=== PATIENT | female | born 2000 | race Caucasian/White ===

== ENCOUNTER 2021-02-03 10:33 | Emergency (ER) | payer OTHER, SELFPAY ==
[2021-02-03 10:55] VITALS: BP 138/94; PULSE 96; RESP 18; TEMP 36.7; O2SAT 99; BMI 24.3
[2021-02-03 11:34] LABS: Bacteria Urine Moderate (10-30); Culture Indicated Urine Cult Not Indicated; RBC Urine 0-1/HPF (0-5/HPF); Squamous Epithelial Cell Urine 5-10 /HPF (0-5/HPF); WBC Urine 0-1/HPF (0-5/HPF)
--- NOTE | 2021-02-03 12:23 | DI.RAD.S_ITS ---
PROCEDURE: XR ACUTE ABDOMEN SERIES INDICATIONS: Shortness of breath, nausea and vomiting TECHNIQUE: One view chest and two views of the abdomen were acquired. COMPARISON: None. FINDINGS: Surgical changes and devices: None. Chest: Lungs are clear. Heart size is normal. No pleural effusions. No pneumoperitoneum. Abdomen: Bowel gas pattern is normal. No suspicious calcifications. Visualized solid organ contours appear normal. Bones: No suspicious bony lesions. IMPRESSION: A nonobstructive bowel gas pattern is seen. If clinically appropriate, please consider a repeat plain film study or a dedicated CT of the abdomen and pelvis, if the patient's symptoms persist or worsen. Clear lungs. Dictated by: Tima Marcial M.D. on 02/03/2021 at 11:40 Approved by: Tima Marcial M.D. on 02/03/2021 at 11:40
--- NOTE | 2021-02-03 12:25 | ED_ITS ---
HPI - Nausea/Vomiting/Diarrhea <ROB Doan - Last Filed: 02/03/21 16:12> General Chief complaint: Nausea/Vomiting/Diarrhea Stated complaint: Passed out, chills/shakes, Vomitting x5days Time Seen by Provider: 02/03/21 12:03 Source: patient Mode of arrival: Ambulatory Limitations: no limitations History of Present Illness HPI Narrative: The patient is a 20-year-old female who presents with her . 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 She states that every day for the past week at 4:00 p.m. she feels shaky and woozy. She states the morning she feels better, then feels worse at 4:00 p.m.. She feels nauseous at 4:00 p.m. as well. She takes ddot-ihu-xoqtvxm neck well at 4:00 p.m. to feel better. She complains of nausea, vomiting, loose stools, possibly bloody stools, appendix pain shortness of breath muscle aches chills and subjective fevers. She states that she had COVID in May, has not been vaccinated. She states she has passed out a few times, most recently last night. She denies any chest pain. She denies any cough. She has not taken anything other than NyQuil to feel better. She denies any dysuria urgency or frequency. She states she is transitioning to different control. She states that she has a primary care provider, but does not know who he is and has an appointment in a few months. Related Data Previous Rx's Medication Instructions Recorded ondansetron 4 mg disintegrating 4 mg PO Q6H PRN #20 tab 02/03/21 tablet Allergies Allergy/AdvReac Type Severity Reaction Status Date / Time No Known Drug Allergies Allergy Verified 02/03/21 15:20 Review of Systems <ROB Doan - Last Filed: 02/03/21 16:12> Review of Systems Narrative: GENERAL: See HPI HEENT: Denies sinus pain, ear pain, sore throat, difficulty swallowing, dizz iness. RESPIRATORY: See HPI CARDIOVASCULAR: See HPI GASTROINTESTINAL: She HPI : Denies dysuria, frequency, incontinence, hematuria, urinary retention. MUSCULOSKELETAL: denies weakness, joint pain, or bony pain SKIN: Denies rash, skin lesions, or other NEUROLOGIC: Denies weakness, headache, numbness, change in speech, confusion, seizures, incoordination. PSYCHIATRIC: No concerning psychosocial issues. 12 point review of systems is negative except for those stated above Patient History <Nirmala ROB Lake - Last Filed: 02/03/21 16:12> Social History Smoking Status: Never smoker Smoking Status: Never smoker Substance Use Type: does not use Exam <Nirmala ROB Lake - Last Filed: 02/03/21 16:12> Narrative Exam Narrative: GENERAL: This is a well-nourished, well-developed patient, in no acute distress with at bedside HEAD: Atraumatic. Normocephalic. No temporal or scalp tenderness. EYES: Pupils equal round and reactive. Extraocular motions intact. No scleral icterus. No injection or drainage. ENT: Nose without bleeding, purulent drainage or septal hematoma. Throat without erythema, tonsillar hypertrophy or exudate. Uvula midline. Airway patent. NECK: Trachea midline. No JVD or lymphadenopathy. Supple, nontender, no meningeal signs. CARDIOVASCULAR: Regular rate and rhythm RESPIRATORY: Clear to auscultation. Breath sounds equal bilaterally. No wheezes, rales, or rhonchi. No cough. No increased respiratory effort. No accessory muscle use. GASTROINTESTINAL: Abdomen soft, diffusely tender, nondistended. No palpable hepato-splenomegaly, or palpable masses. No guarding. Active bowel sounds all 4 quadrants. EXTREMITIES: No clubbing, cyanosis, or edema. No joint tenderness, effusion, or edema noted. BACK: Nontender without deformity or crepitance. No flank tenderness. NEURO: AOx3. SKIN: No rash or erythema on visible skin Initial Vital Signs Initial Vital Signs: Vital Signs Temperature 98.0 F 02/03/21 10:55 Pulse Rate 96 H 02/03/21 10:55 Respiratory Rate 18 02/03/21 10:55 Blood Pressure 138/94 H 02/03/21 10:55 Pulse Oximetry 99 02/03/21 10:55 <Clementina Sibley DO - Last Filed: 02/04/21 08:45> Initial Vital Signs Initial Vital Signs: Vital Signs Temperature 98.0 F 02/03/21 10:55 Pulse Rate 96 H 02/03/21 10:55 Respiratory Rate 18 02/03/21 10:55 Blood Pressure 138/94 H 02/03/21 10:55 Pulse Oximetry 99 02/03/21 10:55 Scores <ROB Doan - Last Filed: 02/03/21 16:12> GCS [place] coma scale eye opening: Spontaneous [place] coma scale verbal response: Orientated [place] coma scale motor response: Obey commands [place] coma scale total score: 15 qSOFA Altered Mental Status (GCS <15): No Respiratory rate greater than/equal to 22: No Systolic blood pressure less than or equal to 100: No qSOFA Total: 0 0-1 Not High Risk 1-3 High risk <DO Edyta Sage Last Filed: 02/04/21 08:45> GCS [place] coma scale total score: 15 qSOFA qSOFA Total: 0 Course <ROB Doan - Last Filed: 02/03/21 16:12> Orders Ordered: Discontinued Medications Ondansetron HCl (Ondansetron 4 Mg Odt) 4 mg SL NOW ONE Stop: 02/03/21 15:05 Last Admin: 02/03/21 15:23 Dose: 4 mg Documented by: NICOLE Vital Signs Vital signs: Vital Signs - 8 hr 02/03/21 10:55 02/03/21 14:40 Temperature 98.0 F Pulse Rate 96 H 94 H Respiratory Rate 18 16 Blood Pressure 138/94 H 119/76 Pulse Oximetry 99 99 <Clementina Sibley DO - Last Filed: 02/04/21 08:45> Orders Ordered: Discontinued Medications Ondansetron HCl (Ondansetron 4 Mg Odt) 4 mg SL NOW ONE Stop: 02/03/21 15:05 Last Admin: 02/03/21 15:23 Dose: 4 mg Documented by: NICOLE Vital Signs Vital signs: Vital Signs - 8 hr 02/03/21 10:55 02/03/21 14:40 Temperature 98.0 F Pulse Rate 96 H 94 H Respiratory Rate 18 16 Blood Pressure 138/94 H 119/76 Pulse Oximetry 99 99 MDM - Nausea/Vomiting/Diarrhea <ROB Doan - Last Filed: 02/03/21 16:12> Lab Data Attestation: I reviewed the patient's lab results. Result diagrams: 02/03/21 12:21 02/03/21 12:21 Labs: Lab Results 02/03/21 02/03/21 02/03/21 Range/Units 11:26 11: 12:21 WBC 7.6 (4.5-11.0) X10^3/uL RBC 4.55 (4.0-5.2) X10^6/uL Hgb 12.3 (12.0-16.0) g/dL Hct 37.1 (36-46) % MCV 81.5 (80-100) fL MCH 27.1 (26-34) PG MCHC 33.3 (30-36) % RDW 15.4 H (11.6-14.8) % Plt Count 258 (150-400) X10^3/uL Neut % (Auto) Not Reportable Lymph % (Auto) Not Reportable [place] % (Auto) Not Reportable Eos % (Auto) Not Reportable Baso % (Auto) Not Reportable Lymph # (Auto) Not Reportable [place] # (Auto) Not Reportable Baso # (Auto) Not Reportable Total Counted 100 Seg Neutrophils % 27.0 L (38-70) % Band Neutrophils % 9.0 H (3-7) % Lymphocytes % (Manual) 43.0 (25-45) % Atypical Lymphs % 14.0 H ( - 0) % Monocytes % (Manual) 3.0 (2-11) % Eosinophils % (Manual) 4.0 (2-4) % Neutrophils # (Manual) 2736 L (8571-8339) /uL Smudge Cells 1+ H RBC Morphology Normal morphology Sodium (137-145) mmol/L Potassium (3.4-5.1) mmol/L Chloride (98-107) mmol/L Carbon Dioxide (22-32) mmol/L BUN (7-17) mg/dL Creatinine (0.52-1.04) mg/dL Estimated GFR (>60) mL/min BUN/Creatinine Ratio (6-22) Glucose (70-100) mg/dL Calcium (8.4-10.2) mg/dL Total Bilirubin (0.2-1.3) mg/dL AST (14-36) IU/L ALT (<35) IU/L Alkaline Phosphatase (38-126) U/L Total Creatine Kinase (30-135) U/L CK-MB (CK-2) CK-MB (CK-2) Rel Index Troponin I (0.01-0.034) ng/mL Total Protein (6.3-8.2) g/dL Albumin (3.5-5.0) g/dL Globulin (1.7-4.1) g/dL Albumin/Globulin Ratio (1.0-2.8) Lipase (23-300) U/L Urine Color Urine Appearance Urine pH (4.5-8.0) Ur Specific [place] (1.000-1.035) Urine Protein (Negative) Urine Glucose (UA) (Negative) g/dL Urine Ketones (NEGATIVE) Urine Occult Blood (Negative) Urine Nitrate (Negative) Urine Bilirubin (NEGATIVE) Urine Urobilinogen (0.2) E.U./dL Ur Leukocyte Esterase (NEGATIVE) Urine RBC 0-1/hpf (0-5/HPF) Urine WBC 0-1/hpf (0-5/HPF) Ur Squamous Epith Cells 5-10 /hpf H (0-5/HPF) Amorphous Sediment Urine Bacteria Moderate (10-30) H (None) Ur Culture Indicated? Cult not indicated Urine Test Negative (Negative) Acetaminophen (10-30) ug/mL SARS-CoV-2 (PCR) (Negative) 02/03/21 02/03/21 02/03/21 Range/Units 12:21 12:21 12:31 WBC (4.5-11.0) X10^3/uL RBC (4.0-5.2) X10^6/uL Hgb (12.0-16.0) g/dL Hct (36-46) % MCV (80-100) fL MCH (26-34) PG MCHC (30-36) % RDW (11.6-14.8) % Plt Count (150-400) X10^3/uL Neut % (Auto) Lymph % (Auto) [place] % (Auto) Eos % (Auto) Baso % (Auto) Lymph # (Auto) [place] # (Auto) Baso # (Auto) Total Counted Seg Neutrophils % (38-70) % Band Neutrophils % (3-7) % Lymphocytes % (Manual) (25-45) % Atypical Lymphs % ( - 0) % Monocytes % (Manual) (2-11) % Eosinophils % (Manual) (2-4) % Neutrophils # (Manual) (0481-2255) /uL Smudge Cells RBC Morphology Sodium 137 (137-145) mmol/L Potassium 4.0 (3.4-5.1) mmol/L Chloride 103 (98-107) mmol/L Carbon Dioxide 25 (22-32) mmol/L BUN 8 (7-17) mg/dL Creatinine 0.81 (0.52-1.04) mg/dL Estimated GFR > 60.0 (>60) mL/min BUN/Creatinine Ratio 9.9 (6-22) Glucose 87 (70-100) mg/dL Calcium 8.9 (8.4-10.2) mg/dL Total Bilirubin 0.3 (0.2-1.3) mg/dL AST 122 H (14-36) IU/L ALT 133 H (<35) IU/L Alkaline Phosphatase 219 H (38-126) U/L Total Creatine Kinase 35 (30-135) U/L CK-MB (CK-2) TNP CK-MB (CK-2) Rel Index TNP Troponin I < 0.012 (0.01-0.034) ng/mL Total Protein 7.5 (6.3-8.2) g/dL Albumin 4.1 (3.5-5.0) g/dL Globulin 3.4 (1.7-4.1) g/dL Albumin/Globulin Ratio 1.2 (1.0-2.8) Lipase 227 (23-300) U/L Urine Color Urine Appearance Urine pH (4.5-8.0) Ur Specific [place] (1.000-1.035) Urine Protein (Negative) Urine Glucose (UA) (Negative) g/dL Urine Ketones (NEGATIVE) Urine Occult Blood (Negative) Urine Nitrate (Negative) Urine Bilirubin (NEGATIVE) Urine Urobilinogen (0.2) E.U./dL Ur Leukocyte Esterase (NEGATIVE) Urine RBC (0-5/HPF) Urine WBC (0-5/HPF) Ur Squamous Epith Cells (0-5/HPF) Amorphous Sediment Urine Bacteria (None) Ur Culture Indicated? Urine Test (Negative) Acetaminophen (10-30) ug/mL SARS-CoV-2 (PCR) Negative (Negative) 02/03/21 02/03/21 Range/Units 13:08 14:06 WBC (4.5-11.0) X10^3/uL RBC (4.0-5.2) X10^6/uL Hgb (12.0-16.0) g/dL Hct (36-46) % MCV (80-100) fL MCH (26-34) PG MCHC (30-36) % RDW (11.6-14.8) % Plt Count (150-400) X10^3/uL Neut % (Auto) Lymph % (Auto) [place] % (Auto) Eos % (Auto) Baso % (Auto) Lymph # (Auto) [place] # (Auto) Baso # (Auto) Total Counted Seg Neutrophils % (38-70) % Band Neutrophils % (3-7) % Lymphocytes % (Manual) (25-45) % Atypical Lymphs % ( - 0) % Monocytes % (Manual) (2-11) % Eosinophils % (Manual) (2-4) % Neutrophils # (Manual) (2315-8167) /uL Smudge Cells RBC Morphology Sodium (137-145) mmol/L Potassium (3.4-5.1) mmol/L Chloride (98-107) mmol/L Carbon Dioxide (22-32) mmol/L BUN (7-17) mg/dL Creatinine (0.52-1.04) mg/dL Estimated GFR (>60) mL/min BUN/Creatinine Ratio (6-22) Glucose (70-100) mg/dL Calcium (8.4-10.2) mg/dL Total Bilirubin (0.2-1.3) mg/dL AST (14-36) IU/L ALT (<35) IU/L Alkaline Phosphatase (38-126) U/L Total Creatine Kinase (30-135) U/L CK-MB (CK-2) CK-MB (CK-2) Rel Index Troponin I (0.01-0.034) ng/mL Total Protein (6.3-8.2) g/dL Albumin (3.5-5.0) g/dL Globulin (1.7-4.1) g/dL Albumin/Globulin Ratio (1.0-2.8) Lipase (23-300) U/L Urine Color Yellow Urine Appearance Clear Urine pH 6.5 (4.5-8.0) Ur Specific [place] 1.020 (1.000-1.035) Urine Protein Trace H (Negative) Urine Glucose (UA) Negative (Negative) g/dL Urine Ketones Negative (NEGATIVE) Urine Occult Blood 2+ H (Negative) Urine Nitrate Negative (Negative) Urine Bilirubin Negative (NEGATIVE) Urine Urobilinogen 0.2 (0.2) E.U./dL Ur Leukocyte Esterase Negative (NEGATIVE) Urine RBC 1-5/hpf (0-5/HPF) Urine WBC 0-1/hpf (0-5/HPF) Ur Squamous Epith Cells 0-1 /hpf (0-5/HPF) Amorphous Sediment 1+ Urine Bacteria Few (2-10) H (None) Ur Culture Indicated? Specimen cultured Urine Test (Negative) Acetaminophen < 10 L (10-30) ug/mL SARS-CoV-2 (PCR) (Negative) Point of Care Testing Test Results Negative Urine Dip Bedside Urine Glucose Negative Bedside Urine Bilirubin - Negative Bedside Urine Ketone - Negative Urine Specific [place] 1.010 Bedside Urine Occult Blood + Bedside Urine pH 6.0 Bedside Urine Protein - Negative Bedside Urine Urobilinogen - Negative Bedside Urine Nitrite - Negative Bedside Urine Leukocytes - Negative Esterase Imaging Data Abdominal x-ray: My Impression: [facility] [address] [place] [id number] XRay Report Signed Patient: Annie Jo MR#: [id number] : 2000 Acct:[id number] Age/Sex: 20 / F Date of Service: 02/03/21 Loc: ED Accession Number: [id number] ?? Procedure: XR acute abdomen series Ordering Provider: Nirmala Lake- PROCEDURE:? XR ACUTE ABDOMEN SERIES ? INDICATIONS:? Shortness of breath, nausea and vomiting ? TECHNIQUE:? One view chest and two views of the abdomen were acquired.? ? COMPARISON:? None. ? FINDINGS:? ? Surgical changes and devices:? None.? ? Chest:? Lungs are clear.? Heart size is normal.? No pleural effusions.? No pneumoperitoneum.? ? Abdomen:? Bowel gas pattern is normal.? No suspicious calcifications.? Visualized solid organ contours appear normal.? ? Bones:? No suspicious bony lesions.? ? ? IMPRESSION:? A nonobstructive bowel gas pattern is seen. ? If clinically appropriate, please consider a repeat plain film study or a dedicated CT of the abdomen and pelvis, if the patient's symptoms persist or worsen. ? ? Clear lungs.? ? ? Dictated by: Tima Marcial M.D. on 02/03/2021 at 11:40 ? ? Approved by: Tima Marcial M.D. on 02/03/2021 at 11:40 ? US - abdomen: Radiologist's Impression: [facility] [address] [place] [id number] Ultrasound Report Signed Patient: Annie Jo MR#: [id number] : 2000 Acct:[id number] Age/Sex: 20 / F Date of Service: 02/03/21 Loc: ED Accession Number: [id number] ?? Procedure: US abdomen limited Ordering Provider: Nirmala Lake PROCEDURE: US ABDOMEN LIMITED ? INDICATIONS:? ELEVATED LIVER FUNCTION TESTS ? TECHNIQUE:? Real-time focused scanning was performed of the abdomen, with image documentation.? ? COMPARISON:? [facility], CR, XR ACUTE ABDOMEN SERIES, 02/03/2021, 12:24. ? FINDINGS:? The liver is prominent in size and demonstrates no focal lesions. ? The gallbladder is partially contracted at the time of this study, as the patient is not NPO.? This mildly limits evaluation.? No findings of gallstones or sludge are seen.? The gallbladder wall is not thickened, measuring 3 mm or less.? No specific pericholecystic fluid is seen.? The sonographic Tyler sign is negative. ? There is no biliary dilatation, the common bile duct measures 2-3 mm.? ? No significant pancreatic abnormality is seen on these images.? IMPRESSION:? No acute abnormality can be seen on this study. ? Prominent liver size, yet without fatty infiltration or focal abnormality. ? The gallbladder demonstrates a normal sonographic appearance. No biliary dilatation is seen. ? ? Dictated by: Tima Marcial M.D. on 02/03/2021 at 12:48 ? ? Approved by: Tima Marcial M.D. on 02/03/2021 at 12:49 ? MDM Narrative Medical decision making narrative: The patient is a 20-year-old female who presents with multiple complaints. She states she has had nausea vomiting, passing out, feeling poorly at 4:00 p.m., shortness of breath etcetera. Acute abdomen series is no acute findings, COVID test is negative, overall CBC and CMP are well though she is noted to have elevated liver enzymes. Discussed with Dr. Sibley, ultrasound taken of right upper quadrant shows no gallstones but shows prominent liver size. Hepatitis panel is pending subsequently. However she has no evidence of cholecystitis. Urine has no clear signs of infection, she denies urinary symptoms so will hold off on antibiotics at this point. She does state that she had some bright red blood per rectum declines rectal exam and Hemoccult. Encouraged her to follow up with primary care provider in the next few days. She appears well nontoxic throughout her stay in the ER. She is noted to be giggling and on her cellphone by nursing staff test is neg ative. Patient has no questions or concerns upon discharge states understanding of return precautions as well as follow-up care. <Clementina Sibley, DO - Last Filed: 02/04/21 08:45> Lab Data Labs: Lab Results 02/03/21 02/03/21 02/03/21 Range/Units 11:26 11:26 12:21 WBC 7.6 (4.5-11.0) X10^3/uL RBC 4.55 (4.0-5.2) X10^6/uL Hgb 12.3 (12.0-16.0) g/dL Hct 37.1 (36-46) % MCV 81.5 (80-100) fL MCH 27.1 (26-34) PG MCHC 33.3 (30-36) % RDW 15.4 H (11.6-14.8) % Plt Count 258 (150-400) X10^3/uL Neut % (Auto) Not Reportable Lymph % (Auto) Not Reportable [place] % (Auto) Not Reportable Eos % (Auto) Not Reportable Baso % (Auto) Not Reportable Lymph # (Auto) Not Reportable [place] # (Auto) Not Reportable Baso # (Auto) Not Reportable Total Counted 100 Seg Neutrophils % 27.0 L (38-70) % Band Neutrophils % 9.0 H (3-7) % Lymphocytes % (Manual) 43.0 (25-45) % Atypical Lymphs % 14.0 H ( - 0) % Monocytes % (Manual) 3.0 (2-11) % Eosinophils % (Manual) 4.0 (2-4) % Neutrophils # (Manual) 2736 L (8416-6441) /uL Smudge Cells 1+ H RBC Morphology Normal morphology Sodium (137-145) mmol/L Potassium (3.4-5.1) mmol/L Chloride (98-107) mmol/L Carbon Dioxide (22-32) mmol/L BUN (7-17) mg/dL Creatinine (0.52-1.04) mg/dL Estimated GFR (>60) mL/min BUN/Creatinine Ratio (6-22) Glucose (70-100) mg/dL Calcium (8.4-10.2) mg/dL Total Bilirubin (0.2-1.3) mg/dL AST (14-36) IU/L ALT (<35) IU/L Alkaline Phosphatase (38-126) U/L Total Creatine Kinase (30-135) U/L CK-MB (CK-2) CK-MB (CK-2) Rel Index Troponin I (0.01-0.034) ng/mL Total Protein (6.3-8.2) g/dL Albumin (3.5-5.0) g/dL Globulin (1.7-4.1) g/dL Albumin/Globulin Ratio (1.0-2.8) Lipase (23-300) U/L Urine Color Urine Appearance Urine pH (4.5-8.0) Ur Specific [place] (1.000-1.035) Urine Protein (Negative) Urine Glucose (UA) (Negative) g/dL Urine Ketones (NEGATIVE) Urine Occult Blood (Negative) Urine Nitrate (Negative) Urine Bilirubin (NEGATIVE) Urine Urobilinogen (0.2) E.U./dL Ur Leukocyte Esterase (NEGATIVE) Urine RBC 0-1/hpf (0-5/HPF) Urine WBC 0-1/hpf (0-5/HPF) Ur Squamous Epith Cells 5-10 /hpf H (0-5/HPF) Amorphous Sediment Urine Bacteria Moderate (10-30) H (None) Ur Culture Indicated? Cult not indicated Urine Test Negative (Negative) Acetaminophen (10-30) ug/mL SARS-CoV-2 (PCR) (Negative) 02/03/21 02/03/21 02/03/21 Range/Units 12:21 12:21 12:31 WBC (4.5-11.0) X10^3/uL RBC (4.0-5.2) X10^6/uL Hgb (12.0-16.0) g/dL Hct (36-46) % MCV (80-100) fL MCH (26-34) PG MCHC (30-36) % RDW (11.6-14.8) % Plt Count (150-400) X10^3/uL Neut % (Auto) Lymph % (Auto) [place] % (Auto) Eos % (Auto) Baso % (Auto) Lymph # (Auto) [place] # (Auto) Baso # (Auto) Total Counted Seg Neutrophils % (38-70) % Band Neutrophils % (3-7) % Lymphocytes % (Manual) (25-45) % Atypical Lymphs % ( - 0) % Monocytes % (Manual) (2-11) % Eosinophils % (Manual) (2-4) % Neutrophils # (Manual) (5608-7405) /uL Smudge Cells RBC Morphology Sodium 137 (137-145) mmol/L Potassium 4.0 (3.4-5.1) mmol/L Chloride 103 (98-107) mmol/L Carbon Dioxide 25 (22-32) mmol/L BUN 8 (7-17) mg/dL Creatinine 0.81 (0.52-1.04) mg/dL Estimated GFR > 60.0 (>60) mL/min BUN/Creatinine Ratio 9.9 (6-22) Glucose 87 (70-100) mg/dL Calcium 8.9 (8.4-10.2) mg/dL Total Bilirubin 0.3 (0.2-1.3) mg/dL AST 122 H (14-36) IU/L ALT 133 H (<35) IU/L Alkaline Phosphatase 219 H (38-126) U/L Total Creatine Kinase 35 (30-135) U/L CK-MB (CK-2) TNP CK-MB (CK-2) Rel Index TNP Troponin I < 0.012 (0.01-0.034) ng/mL Total Protein 7.5 (6.3-8.2) g/dL Albumin 4.1 (3.5-5.0) g/dL Globulin 3.4 (1.7-4.1) g/dL Albumin/Globulin Ratio 1.2 (1.0-2.8) Lipase 227 (23-300) U/L Urine Color Urine Appearance Urine pH (4.5-8.0) Ur Specific [place] (1.000-1.035) Urine Protein (Negative) Urine Glucose (UA) (Negative) g/dL Urine Ketones (NEGATIVE) Urine Occult Blood (Negative) Urine Nitrate (Negative) Urine Bilirubin (NEGATIVE) Urine Urobilinogen (0.2) E.U./dL Ur Leukocyte Esterase (NEGATIVE) Urine RBC (0-5/HPF) Urine WBC (0-5/HPF) Ur Squamous Epith Cells (0-5/HPF) Amorphous Sediment Urine Bacteria (None) Ur Culture Indicated? Urine Test (Negative) Acetaminophen (10-30) ug/mL SARS-CoV-2 (PCR) Negative (Negative) 02/03/21 02/03/21 Range/Units 13:08 14:06 WBC (4.5-11.0) X10^3/uL RBC (4.0-5.2) X10^6/uL Hgb (12.0-16.0) g/dL Hct (36-46) % MCV (80-100) fL MCH (26-34) PG MCHC (30-36) % RDW (11.6-14.8) % Plt Count (150-400) X10^3/uL Neut % (Auto) Lymph % (Auto) [place] % (Auto) Eos % (Auto) Baso % (Auto) Lymph # (Auto) [place] # (Auto) Baso # (Auto) Total Counted Seg Neutrophils % (38-70) % Band Neutrophils % (3-7) % Lymphocytes % (Manual) (25-45) % Atypical Lymphs % ( - 0) % Monocytes % (Manual) (2-11) % Eosinophils % (Manual) (2-4) % Neutrophils # (Manual) (4856-7175) /uL Smudge Cells RBC Morphology Sodium (137-145) mmol/L Potassium (3.4-5.1) mmol/L Chloride (98-107) mmol/L Carbon Dioxide (22-32) mmol/L BUN (7-17) mg/dL Creatinine (0.52-1.04) mg/dL Estimated GFR (>60) mL/min BUN/Creatinine Ratio (6-22) Glucose (70-100) mg/dL Calcium (8.4-10.2) mg/dL Total Bilirubin (0.2-1.3) mg/dL AST (14-36) IU/L ALT (<35) IU/L Alkaline Phosphatase (38-126) U/L Total Creatine Kinase (30-135) U/L CK-MB (CK-2) CK-MB (CK-2) Rel Index Troponin I (0.01-0.034) ng/mL Total Protein (6.3-8.2) g/dL Albumin (3.5-5.0) g/dL Globulin (1.7-4.1) g/dL Albumin/Globulin Ratio (1.0-2.8) Lipase (23-300) U/L Urine Color Yellow Urine Appearance Clear Urine pH 6.5 (4.5-8.0) Ur Specific [place] 1.020 (1.000-1.035) Urine Protein Trace H (Negative) Urine Glucose (UA) Negative (Negative) g/dL Urine Ketones Negative (NEGATIVE) Urine Occult Blood 2+ H (Negative) Urine Nitrate Negative (Negative) Urine Bilirubin Negative (NEGATIVE) Urine Urobilinogen 0.2 (0.2) E.U./dL Ur Leukocyte Esterase Negative (NEGATIVE) Urine RBC 1-5/hpf (0-5/HPF) Urine WBC 0-1/hpf (0-5/HPF) Ur Squamous Epith Cells 0-1 /hpf (0-5/HPF) Amorphous Sediment 1+ Urine Bacteria Few (2-10) H (None) Ur Culture Indicated? Specimen cultured Urine Test (Negative) Acetaminophen < 10 L (10-30) ug/mL SARS-CoV-2 (PCR) (Negative) Point of Care Testing Test Results Negative Urine Dip Bedside Urine Glucose Negative Bedside Urine Bilirubin - Negative Bedside Urine Ketone - Negative Urine Specific [place] 1.010 Bedside Urine Occult Blood + Bedside Urine pH 6.0 Bedside Urine Protein - Negative Bedside Urine Urobilinogen - Negative Bedside Urine Nitrite - Negative Bedside Urine Leukocytes - Negative Esterase Discharge Plan Departure Patient Disposition: Home Clinical Impression: Elevated LFTs, Nausea Instructions: DI for Nausea -- Adult, Liver Function Tests Activity Restrictions/Additional Instructions: Thank you for trusting us with your care today. As discussed, your x-ray shows no evidence of pneumonia or small-bowel obstruction. Your COVID test resulted negative. Overall your lab work was well, other than elevated liver function test. We have sent off a hepatitis panel and will call you if anything significant comes up on this. We also doing a urine culture and will call you if there is any evidence of infection on the culture. Please rest and push fluids. I sent a prescription of ondansetron or Zofran to [facility]. Please follow-up with primary care provider in the next few days. You would benefit from emergency department follow-up. Please come back to the emergency department for any acute concerns. Prescriptions: New ondansetron 4 mg tablet,disintegrating 4 mg PO Q6H PRN (Reason: nausea and vomiting) Qty: 20 RF: 0 <Clementina Sibley DO - Last Filed: 02/04/21 08:45> Cosign ED Attending Leann Attestation: I was immediately available in the department for consultation. Documentation has been reviewed. I agree with assessment and plan.
[2021-02-03 12:45] LABS: Hematocrit 37.1 % (36-46); Hemoglobin 12.3 g/dL (12.0-16.0); Mean Corpuscular HGB Conc 33.3 % (30-36); Mean Corpuscular Hemoglobin 27.1 PG (26-34); Mean Corpuscular Volume 81.5 fL (80-100); Platelet Count 258 X10^3/uL (150-400); Red Blood Cell Count 4.55 X10^6/uL (4.0-5.2); Red Cell Distribution Width 15.4 % (11.6-14.8); White Blood Cell Count 7.6 X10^3/uL (4.5-11.0)
[2021-02-03 12:47] LABS: Add Manual Diff / Slide Review YES
[2021-02-03 12:49] LABS: Alanine Aminotransferase 133 IU/L (<35); Albumin 4.1 g/dL (3.5-5.0); Albumin Globulin Ratio 1.2 (1.0-2.8); Alkaline Phosphatase 219 U/L (38-126); Aspartate Aminotransferase 122 IU/L (14-36); BUN Creatinine Ratio 9.9 (6-22); Bilirubin Total 0.3 mg/dL (0.2-1.3); Blood Urea Nitrogen 8 mg/dL (7-17); Calcium 8.9 mg/dL (8.4-10.2); Carbon Dioxide 25 mmol/L (22-32); Chloride 103 mmol/L (98-107); Estimated Glomerular Filt Rate > 60.0 mL/min (>60); Globulin 3.4 g/dL (1.7-4.1); Glucose 87 mg/dL (70-100); HEMOLYSIS < 15 (0-50); Lipase 227 U/L (23-300); Sodium 137 mmol/L (137-145); Total Protein 7.5 g/dL (6.3-8.2)
[2021-02-03 12:50] LABS: Creatine Kinase 35 U/L (30-135)
[2021-02-03 12:56] LABS: COVID19 -Nasal RAPID Negative (Negative)
[2021-02-03 13:00] LABS: Troponin I < 0.012 ng/mL (0.01-0.034)
--- NOTE | 2021-02-03 13:09 | DI.US.S_ITS ---
PROCEDURE: US ABDOMEN LIMITED INDICATIONS: ELEVATED LIVER FUNCTION TESTS TECHNIQUE: Real-time focused scanning was performed of the abdomen, with image documentation. COMPARISON: [facility], , XR ACUTE ABDOMEN SERIES, 02/03/2021, 12:24. FINDINGS: The liver is prominent in size and demonstrates no focal lesions. The gallbladder is partially contracted at the time of this study, as the patient is not NPO. This mildly limits evaluation. No findings of gallstones or sludge are seen. The gallbladder wall is not thickened, measuring 3 mm or less. No specific pericholecystic fluid is seen. The sonographic Tyler sign is negative. There is no biliary dilatation, the common bile duct measures 2-3 mm. No significant pancreatic abnormality is seen on these images. IMPRESSION: No acute abnormality can be seen on this study. Prominent liver size, yet without fatty infiltration or focal abnormality. The gallbladder demonstrates a normal sonographic appearance. No biliary dilatation is seen. Dictated by: Tima Marcial M.D. on 02/03/2021 at 12:48 Approved by: Tima Marcial M.D. on 02/03/2021 at 12:49
[2021-02-03 13:17] LABS: Acetaminophen < 10 ug/mL (10-30)
[2021-02-03 13:19] LABS: Neutrophils Absolute Manual 2736 /uL (3000-5900); Total Cells Counted 100
[2021-02-03 13:25] LABS: RBC Morphology Normal Morphology; Smudge Cells 1+
[2021-02-03 13:57] LABS: Pregnancy Test Urine Negative (Negative)
[2021-02-03 14:11] LABS: Appearance Urine UA CLEAR; Bilirubin Urine UA NEGATIVE (NEGATIVE); Color Urine UA YELLOW; Glucose Urine UA NEGATIVE (Negative); Ketones Urine UA NEGATIVE (NEGATIVE); Leukocyte Esterase Urine UA NEGATIVE (NEGATIVE); Nitrite Urine UA NEGATIVE (Negative); Occult Blood Urine UA 2+ (Negative); Protein Urine UA TRACE (Negative); Urobilinogen Urine UA 0.2 E.U./dL (0.2)
[2021-02-03 14:26] LABS: pH Urine UA 6.5 (4.5-8.0)
[2021-02-03 14:28] LABS: Amorphous Sediment Urine 1+; Bacteria Urine Few (2-10); Culture Indicated Urine Specimen Cultured; RBC Urine 1-5/HPF (0-5/HPF); Squamous Epithelial Cell Urine 0-1 /HPF (0-5/HPF); WBC Urine 0-1/HPF (0-5/HPF)
[2021-02-03 14:40] VITALS: BP 119/76; PULSE 94; RESP 16; O2SAT 99
[2021-02-03] MEDS: ONDANSETRON 4 MG ODT SL (15:23)
[2021-02-04 09:49] LABS: HBsAg Screen Negative (Negative); Hepatitis A Antibody IgM Negative (Negative); Hepatitis B Core Antibody IgM Negative (Negative); Hepatitis C Antibody <0.1 s/co ratio (0.0-0.9)
== END 2021-02-03 15:28 | disposition home or self-care (01) ==
PROVIDERS: Emergency Medicine; Emergency Provider Nurse Practitioner Family
DX: R74.01 Elevation of levels of liver transaminase levels (principal); R11.2 Nausea with vomiting, unspecified; R19.7 Diarrhea, unspecified; R10.9 Unspecified abdominal pain; R06.02 Shortness of breath; Z20.822 Contact with and (suspected) exposure to COVID-19
CPT/HCPCS: 36415; 74022; 76705; 80053; 80074; 80329; 81001; 81003; 81015; 81025; 82550; 83690; 84484; 85007; 85025; 87086; 87635; 93005; 93010; 99284; C9803; G0480

== ENCOUNTER 2021-02-04 16:24 | Emergency (ER) | payer OTHER, SELFPAY ==
[2021-02-04 16:37] VITALS: BP 115/65; PULSE 98; RESP 16; TEMP 36.6; O2SAT 99; BMI 23.6
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
--- NOTE | 2021-02-04 17:33 | DI.CT.S_ITS ---
PROCEDURE: CT HEAD/BRAIN WO CON INDICATIONS: dizzy prior bleed TECHNIQUE: Noncontrast 4.5 mm thick angled axial sections acquired from the foramen magnum to the vertex, with coronal and sagittal reformats. For radiation dose reduction, the following was used: automated exposure control, adjustment of mA and/or kV according to patient size. COMPARISON: None. FINDINGS: Image quality: Mild streak artifact can be seen through the skull base. CSF spaces: Basal cisterns are patent. No extra-axial fluid collections. Ventricles are normal in size and shape. Brain: No midline shift. No intracranial masses or hemorrhage. [place]-white matter interface is normal. Skull and face: Calvarium and visualized facial bones are intact, without suspicious lesions. Sinuses: Visualized sinuses and mastoids are clear. IMPRESSION: No acute intracranial hemorrhage is seen. No acute intracranial process is seen. Dictated by: Tima Marcial M.D. on 02/04/2021 at 16:58 Approved by: Tima Marcial M.D. on 02/04/2021 at 16:59
[2021-02-04] MEDS: SODIUM CHLORIDE 0.9% 1,000 ML 1000 ML IV (17:56)
[2021-02-04 18:11] LABS: Hemoglobin 12.2 g/dL (12.0-16.0); Mean Corpuscular HGB Conc 33.8 % (30-36); Platelet Count 266 X10^3/uL (150-400); Red Cell Distribution Width 15.1 % (11.6-14.8)
[2021-02-04 18:14] LABS: Alanine Aminotransferase 151 IU/L (<35); Albumin 3.9 g/dL (3.5-5.0); Albumin Globulin Ratio 1.1 (1.0-2.8); Alkaline Phosphatase 243 U/L (38-126); Aspartate Aminotransferase 134 IU/L (14-36); BUN Creatinine Ratio 8.2 (6-22); Bilirubin Total 0.3 mg/dL (0.2-1.3); Blood Urea Nitrogen 6 mg/dL (7-17); COVID19 -Nasal RAPID Negative (Negative); Carbon Dioxide 25 mmol/L (22-32); Chloride 104 mmol/L (98-107); Estimated Glomerular Filt Rate > 60.0 mL/min (>60); Globulin 3.5 g/dL (1.7-4.1); Glucose 86 mg/dL (70-100); HEMOLYSIS < 15 (0-50); Lipase 184 U/L (23-300); Sodium 136 mmol/L (137-145); Total Protein 7.4 g/dL (6.3-8.2)
[2021-02-04 18:17] LABS: Add Manual Diff / Slide Review YES
[2021-02-04 18:24] LABS: Neutrophils Absolute Manual 3300 /uL (3000-5900); RBC Morphology Normal Morphology; Reactive Lymphocytes 2+; Total Cells Counted 100
[2021-02-04 18:39] LABS: D Dimer 1852 ng/mL (<230)
--- NOTE | 2021-02-04 18:50 | DI.CT.S_ITS ---
PROCEDURE: CT ANGIO CHEST PE PROTOCOL INDICATIONS: + Dimer sob syncope TECHNIQUE: After the administration of intravenous contrast, 2 mm thick sections acquired from the pulmonary apices to the posterior costophrenic angles. 3-dimensional maximum intensity projection (MIP) coronal and sagittal reformats were then acquired through the thorax. For radiation dose reduction, the following was used: automated exposure control, adjustment of mA and/or kV according to patient size. COMPARISON: [facility], CR, XR ACUTE ABDOMEN SERIES, 02/03/2021, 12:24. FINDINGS: Lungs: Subpleural right lung base nodule measuring 7 mm on image 163/5. Scattered subsegmental atelectasis and/or scarring. No focal consolidation. Pleura: No pleural effusion or pneumothorax. Heart: Normal in size. No pericardial effusion. Chest nodes: Borderline enlarged right hilar lymph node, technically nonspecific finding. Thyroid gland: Unremarkable Aorta: Normal in size. Pulmonary arteries: No intraluminal filling defects identified. Esophagus: Normal. Upper abdomen and chest wall: No significant findings. Bones: No compression fracture. Diffuse spondylitic changes and facet arthropathy. IMPRESSION: No evidence of pulmonary embolism. No aortic dissection identified. 7 mm subpleural right lung base nodule, for which malignancy cannot be entirely excluded although statistically rare given patient age. Also, given patient age, recommend follow-up with initial chest radiographs in 6 months. Dictated by: Avel Chen M.D. on 02/04/2021 at 19:43 Approved by: Avel Chen M.D. on 02/04/2021 at 19:53
--- NOTE | 2021-02-04 18:55 | DI.CT.S_ITS ---
PROCEDURE: CT ABDOMEN PELVIS W CON INDICATIONS: elevated liver enzymes TECHNIQUE: After the administration of intravenous contrast, axial sections acquired from the lung bases to the pubic symphysis. Coronal and sagittal reformats were performed. For radiation dose reduction, the following was used: automated exposure control, adjustment of mA and/or kV according to patient size. COMPARISON: None. FINDINGS: ABDOMEN: Lung bases: A nonspecific 7 mm nodule seen in the right lung base is indeterminate. Heart: No pericardial effusion. Normal in size. Liver: Normal. Gallbladder: Unremarkable Bile ducts: Normal. Pancreas: Normal. Spleen: Normal. Adrenals: Normal. Kidneys and Ureters: Normal. Stomach and duodenum: Normal. Bowel: Normal. Other: No free fluid or air. Abdominal nodes: Mildly prominent although not technically non pathologically enlarged mesenteric lymph nodes Aorta and IVC: Normal in size. Ventral wall: Normal. PELVIS: Bladder and reproductive: Unremarkable. Inguinal region: Mildly prominent left inguinal lymph node image 88/2. Pelvic nodes: Normal. Bones: No suspicious bony lesions. No vertebral body compression fractures. IMPRESSION: Normal appearance of the appendix Normal appearance of the gallbladder. 7 mm right pulmonary nodule, technically nonspecific although statistically benign given patient age. Recommend initial follow-up with six-month chest radiographs. Shotty mesenteric lymph nodes without definite pathologic enlargement. This could be related to low-grade mesenteric adenitis. There is also minimal hazy ground-glass attenuation in the mesentery. This could be due to celiac disease, lymphoma, drug toxicity or mesenteric panniculitis among other possibilities Dictated by: Avel Chen M.D. on 02/04/2021 at 19:54 Approved by: Avel Chen M.D. on 02/04/2021 at 20:01
[2021-02-04 20:03] VITALS: BP 114/77; BP 120/79; BP 123/83; PULSE 65; PULSE 70; PULSE 72
[2021-02-04 20:59] VITALS: BP 114/78; PULSE 76; RESP 15; O2SAT 100
== END 2021-02-04 20:59 | disposition home or self-care (01) ==
PROVIDERS: Emergency Medicine; Emergency Provider Emergency Medicine
DX: R11.2 Nausea with vomiting, unspecified (principal); R79.89 Other specified abnormal findings of blood chemistry; E86.0 Dehydration; R79.1 Abnormal coagulation profile; R42 Dizziness and giddiness
CPT/HCPCS: 36415; 70450; 71275; 74177; 80053; 81003; 81025; 83690; 85007; 85025; 85379; 87635; 96360; 99284; C9803; Q9967

== ENCOUNTER 2021-04-30 09:31 | Emergency (ER) | payer OTHER, SELFPAY ==
[2021-04-30] VITALS (7 sets, daily range): BP systolic 124–135; BP diastolic 70–81; PULSE 70–80; RESP 14–18; TEMP 36.7; O2SAT 96–99; BMI 25.1
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
--- NOTE | 2021-04-30 10:53 | DI.CT.S_ITS ---
PROCEDURE: CT HEAD/BRAIN WO CON INDICATIONS: Recent head injury. Prior brain trauma. TECHNIQUE: Noncontrast 4.5 mm thick angled axial sections acquired from the foramen magnum to the vertex, with coronal and sagittal reformats. For radiation dose reduction, the following was used: automated exposure control, adjustment of mA and/or kV according to patient size. COMPARISON: [facility], CT, CT HEAD/BRAIN WO CON, 02/04/2021, 17:41. FINDINGS: Image quality: Mild streak artifact can be seen through the skull base. CSF spaces: Basal cisterns are patent. No extra-axial fluid collections. Ventricles are normal in size and shape. Brain: No midline shift. No intracranial masses or hemorrhage. [place]-white matter interface is normal. Skull and face: Calvarium and visualized facial bones are intact, without suspicious lesions. Sinuses: Visualized sinuses and mastoids are clear. IMPRESSION: Normal noncontrast head CT, stable from prior. No intracranial hemorrhage is detected. Dictated by: Tima Marcial M.D. on 04/30/2021 at 10:09 Approved by: Tima Marcial M.D. on 04/30/2021 at 10:10
== END 2021-04-30 13:12 | disposition home or self-care (01) ==
PROVIDERS: Emergency Provider Emergency Medicine; PCP Family Medicine
DX: S09.90XA Unspecified injury of head, initial encounter (principal); W22.8XXA Striking against or struck by other objects, initial encounter; Y93.89 Activity, other specified; Y92.39 Other specified sports and athletic area as the place of occurrence of the external cause
CPT/HCPCS: 70450; 99283; 99284

== ENCOUNTER 2021-05-25 13:27 | Emergency (ER) | payer OTHER, SELFPAY ==
--- NOTE | 2021-05-25 13:01 | ED_ITS ---
HPI - General Adult <Chicho Fletcher PA-C - Last Filed: 05/25/21 16:17> General Chief complaint: Head Injury Stated complaint: Syncopal episode History of Present Illness HPI narrative: 20-year-old female with a history of multiple traumatic brain injuries presents to the ED status post a syncopal episode just prior to arrival. Patient was brought in by EMS after a syncopal episode at work this morning. Patient states that she felt nauseous since this morning, felt like she could not breathe, pulled on her mask, felt sweaty, lost consciousness while standing. Patient's fall was witnessed, with reports of no seizure-like activity, positive head strike, head bouncing twice on the floor. Patient denies history seizures. Patient denies fever, chills, chest pain, shortness of breath, abdominal pain, dysuria, flank pain. Patient had 1 episode of prior syncope last year. Patient endorses multiple traumatic brain injuries. Related Data Previous Rx's Medication Instructions Recorded drospirenone 3 mg-ethinyl 1 tab PO DAILY #84 tab 03/09/21 estradiol 0.02 mg tablet (CLARITA (28)) Allergies Allergy/AdvReac Type Severity Reaction Status Date / Time drospirenone Allergy Severe Vomiting Verified 04/30/21 09:41 Review of Systems <Chicho Fletcher PA-C - Last Filed: 05/25/21 16:17> Review of Systems Narrative: Nausea, syncope, fall w/ head strike, neck pain, back pain ROS Unobtainable: All systems reviewed & are unremarkable except as noted in HPI and below Constitutional Constitutional: Denies chills, Denies fatigue, Denies fever(s), Denies frequent falls, Denies lethargy and Denies weakness Eyes Eyes: Denies change in vision, Denies eye discharge, Denies irritation and Denies loss of vision ENT Ears, Nose, Mouth, and Throat: Denies change in voice, Denies dizziness, Reports neck pain, Denies sore throat and Denies throat swelling Cardiovascular Cardiovascular: Denies chest pain, Denies irregular heart rhythm, Denies lightheadedness, Denies palpitations, Denies dyspnea, Denies dyspnea on exertion and Denies orthopnea Respiratory Respiratory: Denies cough, Denies dyspnea, Denies dyspnea on exertion and Denies wheezing Gastrointestinal Gastrointestinal: Denies abdominal pain, Denies change in bowel habits, Denies diarrhea, Reports nausea and Denies vomiting Genitourinary Genitourinary: Denies hematuria, Denies flank pain, Denies urinary incontinence and Denies urinary urgency Musculoskeletal Musculoskeletal: Reports back pain, Denies muscle weakness, Reports neck pain, Denies numbness and Denies tingling Integumentary/Breasts Skin/Breast: Denies pruritus, Denies erythema, Denies rash and Denies wounds Neurologic Neurologic: Denies behavioral changes, Denies confusion, Denies dizziness, D enies frequent falls, Denies loss of vision, Denies numbness, Denies tingling and Denies weakness Psychiatric Psychiatric: Denies anxiety, Denies behavioral changes, Denies confusion, Denies depression, Denies homicidal ideation and Denies suicidal ideation Endocrine Endocrine: Denies fatigue, Denies flushing and Denies palpitations Hematologic/Lymphatic Hematologic/Lymphatic: Denies easy bruising Allergic/Immunologic Allergic/Immunologic: Denies urticaria, Denies throat swelling and Denies wheezing Patient History <Chicho Fletcher PA-C - Last Filed: 05/25/21 16:17> Medical History control counseling History of traumatic brain injury Social History Smoking Status: Never smoker Exam <Chicho Fletcher PA-C - Last Filed: 05/25/21 16:17> Initial Vital Signs Initial Vital Signs: Vital Signs Temperature 98.6 F 05/25/21 13:28 Pulse Rate 98 H 05/25/21 13:28 Respiratory Rate 18 05/25/21 13:28 Blood Pressure 117/74 05/25/21 13:28 Pulse Oximetry 98 05/25/21 13:28 Const General: cooperative, healthy appearing and comfortable [facility] Head: normal to inspection, normocephalic and atraumatic Eyes General: appearance normal, both eyes and all related structures Neck Neck: normal visual inspection Resp Effort & Inspection: normal respiratory effort Auscultation: clear to auscultation bilaterally Cardio Rate: regular rate Rhythm: regular rhythm GI Other: Abdomen is soft, nontender to palpation, nondistended. No CVA tenderness. General: No CVA tenderness Back/Spine/Pelvis Back: normal to inspection Other: No midline tenderness to palpation. Skin General: no rashes or lesions noted Neuro General: patient alert, patient awake and patient oriented x3 Psych Appearance: grossly normal Mental Status: mental status grossly normal <Clementina Sibley DO - Last Filed: 05/26/21 07:49> Initial Vital Signs Initial Vital Signs: Vital Signs Temperature 98.6 F 05/25/21 13:28 Pulse Rate 98 H 05/25/21 13:28 Respiratory Rate 18 05/25/21 13:28 Blood Pressure 117/74 05/25/21 13:28 Pulse Oximetry 98 05/25/21 13:28 Course <Chicho Fletcher PA-C - Last Filed: 05/25/21 16:17> Orders Ordered: ED Orders 05/25/21 13:40 CBC Auto Diff [Complete Blood Count AUTO DIFF] Stat CMP [Comprehensive Metabolic Panel] Stat Lipase Stat Prolactin Stat 05/25/21 13:55 XR chest 1V Stat 05/25/21 14:01 COVID19 -Nasal swab/Pre-Proc Stat 05/25/21 14:03 CT cervical spine wo con Stat CT head/brain wo con Stat 05/25/21 14:11 EKG-12 Lead Stat 05/25/21 14:46 XR lumbar spine 2-3V Stat XR thoracic spine 3V Stat Vital Signs Vital signs: Vital Signs - 8 hr 05/25/21 13:28 05/25/21 13:35 05/25/21 13:42 Temperature 98.6 F 98.2 F Pulse Rate 98 H 70 Respiratory Rate 18 Blood Pressure 117/74 Pulse Oximetry 98 99 05/25/21 14:00 05/25/21 16:14 Temperature Pulse Rate 73 72 Respiratory Rate Blood Pressure Pulse Oximetry 100 100 <Clementina Sibley DO - Last Filed: 05/26/21 07:49> Orders Ordered: ED Orders 05/25/21 13:40 CBC Auto Diff [Complete Blood Count AUTO DIFF] Stat CMP [Comprehensive Metabolic Panel] Stat Lipase Stat Prolactin Stat 05/25/21 13:55 XR chest 1V Stat 05/25/21 14:01 COVID19 -Nasal swab/Pre-Proc Stat 05/25/21 14:03 CT cervical spine wo con Stat CT head/brain wo con Stat 05/25/21 14:11 EKG-12 Lead Stat 05/25/21 14:46 XR lumbar spine 2-3V Stat XR thoracic spine 3V Stat Vital Signs Vital signs: Vital Signs - 8 hr 05/25/21 13:28 05/25/21 13:35 05/25/21 13:42 Temperature 98.6 F 98.2 F Pulse Rate 98 H 70 Respiratory Rate 18 Blood Pressure 117/74 Pulse Oximetry 98 99 05/25/21 14:00 05/25/21 16:14 Temperature Pulse Rate 73 72 Respiratory Rate Blood Pressure Pulse Oximetry 100 100 Medical Decision Making <Chicho Fletcher PA-C - Last Filed: 05/25/21 16:17> Medical Records Medical records reviewed: Yes I reviewed the patient's medical records. Lab Data Lab results reviewed: Yes I reviewed the patient's lab results. Lab results narrative: Labs within normal limits Result diagrams: 05/25/21 13:40 05/25/21 13:40 Labs: Lab Results 05/25/21 05/25/21 05/25/21 Range/Units 13:40 13:40 13:40 WBC 6.9 (4.5-11.0) X10^3/uL RBC 3.99 L (4.0-5.2) X10^6/uL Hgb 11.5 L (12.0-16.0) g/dL Hct 33.7 L (36-46) % MCV 84.4 (80-100) fL MCH 28.8 (26-34) PG MCHC 34.1 (30-36) % RDW 13.1 (11.6-14.8) % Plt Count 465 H (150-400) X10^3/uL Neut % (Auto) 47.9 L (50-75) % Lymph % (Auto) 41.7 H (25-40) % Orange % (Auto) 8.9 (3-14) % Eos % (Auto) 1.1 L (2-4) % Baso % (Auto) 0.4 (0-2) % Neut # (Auto) 3300 (5823-9316) /uL Lymph # (Auto) 2900 (8646-5885) /uL Orange # (Auto) 600 (0-900) /uL Eos # (Auto) 100 (0-450) /uL Baso # (Auto) 0 (0-100) /uL Sodium 137 (137-145) mmol/L Potassium 3.9 (3.4-5.1) mmol/L Chloride 104 (98-107) mmol/L Carbon Dioxide 26 (22-32) mmol/L BUN 13 (7-17) mg/dL Creatinine 0.78 (0.52-1.04) mg/dL Estimated GFR > 60.0 (>60) mL/min BUN/Creatinine Ratio 16.7 (6-22) Glucose 86 (70-100) mg/dL Calcium 9.8 (8.4-10.2) mg/dL Total Bilirubin 0.2 (0.2-1.3) mg/dL AST 26 (14-36) IU/L ALT 14 (<35) IU/L Alkaline Phosphatase 77 (38-126) U/L Total Protein 8.3 H (6.3-8.2) g/dL Albumin 4.6 (3.5-5.0) g/dL Globulin 3.7 (1.7-4.1) g/dL Albumin/Globulin Ratio 1.2 (1.0-2.8) Lipase 160 (23-300) U/L Prolactin 19.2 H (3.0-18.6) ng/mL SARS-CoV-2 (PCR) (Negative) 05/25/21 Range/Units 14:01 WBC (4.5-11.0) X10^3/uL RBC (4.0-5.2) X10^6/uL Hgb (12.0-16.0) g/dL Hct (36-46) % MCV (80-100) fL MCH (26-34) PG MCHC (30-36) % RDW (11.6-14.8) % Plt Count (150-400) X10^3/uL Neut % (Auto) (50-75) % Lymph % (Auto) (25-40) % Orange % (Auto) (3-14) % Eos % (Auto) (2-4) % Baso % (Auto) (0-2) % Neut # (Auto) (0581-6974) /uL Lymph # (Auto) (5990-0200) /uL Orange # (Auto) (0-900) /uL Eos # (Auto) (0-450) /uL Baso # (Auto) (0-100) /uL Sodium (137-145) mmol/L Potassium (3.4-5.1) mmol/L Chloride (98-107) mmol/L Carbon Dioxide (22-32) mmol/L BUN (7-17) mg/dL Creatinine (0.52-1.04) mg/dL Estimated GFR (>60) mL/min BUN/Creatinine Ratio (6-22) Glucose (70-100) mg/dL Calcium (8.4-10.2) mg/dL Total Bilirubin (0.2-1.3) mg/dL AST (14-36) IU/L ALT (<35) IU/L Alkaline Phosphatase (38-126) U/L Total Protein (6.3-8.2) g/dL Albumin (3.5-5.0) g/dL Globulin (1.7-4.1) g/dL Albumin/Globulin Ratio (1.0-2.8) Lipase (23-300) U/L Prolactin (3.0-18.6) ng/mL SARS-CoV-2 (PCR) Negative (Negative) Point of Care Testing Test Results Negative Glucose POC 92 Urine Dip Bedside Urine Glucose Negative Bedside Urine Bilirubin - Negative Bedside Urine Ketone - Negative Urine Specific [place] 1.010 Bedside Urine Occult Blood +/- Bedside Urine pH 6.5 Bedside Urine Protein - Negative Bedside Urine Urobilinogen - Negative Bedside Urine Nitrite - Negative Point of care testing: Point of Care Testing Test Results Negative Glucose POC 92 Urine Dip Bedside Urine Glucose Negative Bedside Urine Bilirubin - Negative Bedside Urine Ketone - Negative Urine Specific [place] 1.010 Bedside Urine Occult Blood +/- Bedside Urine pH 6.5 Bedside Urine Protein - Negative Bedside Urine Urobilinogen - Negative Bedside Urine Nitrite - Negative Imaging Data CT scan - head: Radiologist's Impression: PROCEDURE:? CT HEAD/BRAIN WO CON ? INDICATIONS:? syncope, fall ? TECHNIQUE:? Noncontrast 4.5 mm thick angled axial sections acquired from the foramen magnum to the vertex, with coronal and sagittal reformats.? For radiation dose reduction, the following was used:? automated exposure control, adjustment of mA and/or kV according to patient size.? ? COMPARISON:? [facility], CT, CT HEAD/BRAIN WO CON, 04/30/2021, 10:57. ? FINDINGS:? Image quality:? Excellent.? ? CSF spaces:? Basal cisterns are patent.? No extra-axial fluid collections.? Ventricles are normal in size and shape.? ? Brain:? No midline shift.? No intracranial masses or hemorrhage.? [place]-white matter interface is normal.? 2.6 x 1.4 cm arachnoid cyst noted in the left middle cranial fossa anteriorly. ? Skull and face:? Calvarium and visualized facial bones are intact, without suspicious lesions.? ? Sinuses:? Left mastoid fluid noted. ? IMPRESSION:? ? 1. No intracranial hemorrhage or mass effect 2. Left mastoid fluid may be inflammatory or postinflammatory 3. Incidental arachnoid cyst in the left middle cranial fossa ? ? Approved by: Tonio Singletary M.D. on 05/25/2021 at 14:04? CT - cervical spine: Radiologist's Impression: PROCEDURE:? CT CERVICAL SPINE WO CON ? INDICATIONS:? fall, syncope ? TECHNIQUE:? Noncontrast 3 mm thick sections acquired from the skull base to the T4 level.? Sagittal and coronal reformats were then constructed.? For radiation dose reduction, the following was used:? automated exposure control, adjustment of mA and/or kV according to patient size.? ? COMPARISON:? None. ? FINDINGS:? Image quality:? Diagnostic.? Evaluation at C4 and C5 level is slightly degraded due to patient motion. ? Bones:? No fractures or dislocations.? Straightening of normal cervical lordosis.? Visualized superior ribs are intact.? ? Soft tissues:? Prevertebral soft tissues are normal in thickness.? No paravertebral hematomas.? No apical pneumothoraces.? ? ? IMPRESSION:? No gross acute cervical spine fracture or dislocation.? Study is slightly degraded due to patient motion. ? ? Dictated by: Jalen Calero M.D. on 05/25/2021 at 15:12 ? ? Approved by: Jalen Calero M.D. on 05/25/2021 at 15:14 ? Thoracic spine x-ray: Radiologist's Impression: PROCEDURE:? XR THORACIC SPINE 3V ? INDICATIONS:? fall ? TECHNIQUE:? 3 views of the thoracic spine were acquired.? ? COMPARISON:? None. ? FINDINGS:? ? Bones:? No fractures or dislocations.? No suspicious bony lesions.? 12 pairs of ribs are noted, and appear intact where visualized.? ? Soft tissues:? No paravertebral stripe thickening.? ? ? IMPRESSION:? Unremarkable thoracic spine radiographs.? No fracture. ? ? ? Approved by: Tonio Singletary M.D. on 05/25/2021 at 14:53? Lumbar spine x-ray: Radiologist's Impression: PROCEDURE:? XR LUMBAR SPINE 2-3V ? INDICATIONS:? fall, syncope ? TECHNIQUE:? 3 views of the lumbar spine were acquired.? ? COMPARISON:? None. ? FINDINGS:? ? Bones:? 5 [id number] vertebrae are present.? There is normal bony alignment.? No vertebral body compression fractures.? No suspicious bony lesions.? ? Soft tissues:? Overlying bowel gas pattern is normal.? No suspicious soft tissue calcifications.? ? ? IMPRESSION:? Unremarkable lumbar spine radiographs.? No fracture. ? ? ? Approved by: Tonio Singletary M.D. on 05/25/2021 at 14:53? MDM Narrative Medical decision making narrative: 20-year-old female with a history of multiple traumatic brain injuries presents to the ED status post a syncopal episode just prior to arrival. Concern for intracranial bleed versus fracture/dislocation versus arrhythmia versus COVID infection versus ectopic versus UTI. Will order chest x-ray, labs, UA, EKG, CT head, CT C-spine, x-ray lumbar spine, x-ray thoracic spine. Negative workup. Incidental CT head findings discussed with patient. Patient feels well in the ED. ED return precautions discussed. Patient verbalized un derstanding. <Clementina Sibley, DO - Last Filed: 05/26/21 07:49> Lab Data Labs: Lab Results 05/25/21 05/25/21 05/25/21 Range/Units 13:40 13:40 13:40 WBC 6.9 (4.5-11.0) X10^3/uL RBC 3.99 L (4.0-5.2) X10^6/uL Hgb 11.5 L (12.0-16.0) g/dL Hct 33.7 L (36-46) % MCV 84.4 (80-100) fL MCH 28.8 (26-34) PG MCHC 34.1 (30-36) % RDW 13.1 (11.6-14.8) % Plt Count 465 H (150-400) X10^3/uL Neut % (Auto) 47.9 L (50-75) % Lymph % (Auto) 41.7 H (25-40) % Orange % (Auto) 8.9 (3-14) % Eos % (Auto) 1.1 L (2-4) % Baso % (Auto) 0.4 (0-2) % Neut # (Auto) 3300 (0873-9468) /uL Lymph # (Auto) 2900 (7724-9973) /uL Orange # (Auto) 600 (0-900) /uL Eos # (Auto) 100 (0-450) /uL Baso # (Auto) 0 (0-100) /uL Sodium 137 (137-145) mmol/L Potassium 3.9 (3.4-5.1) mmol/L Chloride 104 (98-107) mmol/L Carbon Dioxide 26 (22-32) mmol/L BUN 13 (7-17) mg/dL Creatinine 0.78 (0.52-1.04) mg/dL Estimated GFR > 60.0 (>60) mL/min BUN/Creatinine Ratio 16.7 (6-22) Glucose 86 (70-100) mg/dL Calcium 9.8 (8.4-10.2) mg/dL Total Bilirubin 0.2 (0.2-1.3) mg/dL AST 26 (14-36) IU/L ALT 14 (<35) IU/L Alkaline Phosphatase 77 (38-126) U/L Total Protein 8.3 H (6.3-8.2) g/dL Albumin 4.6 (3.5-5.0) g/dL Globulin 3.7 (1.7-4.1) g/dL Albumin/Globulin Ratio 1.2 (1.0-2.8) Lipase 160 (23-300) U/L Prolactin 19.2 H (3.0-18.6) ng/mL SARS-CoV-2 (PCR) (Negative) 05/25/21 Range/Units 14:01 WBC (4.5-11.0) X10^3/uL RBC (4.0-5.2) X10^6/uL Hgb (12.0-16.0) g/dL Hct (36-46) % MCV (80-100) fL MCH (26-34) PG MCHC (30-36) % RDW (11.6-14.8) % Plt Count (150-400) X10^3/uL Neut % (Auto) (50-75) % Lymph % (Auto) (25-40) % Orange % (Auto) (3-14) % Eos % (Auto) (2-4) % Baso % (Auto) (0-2) % Neut # (Auto) (0129-0850) /uL Lymph # (Auto) (2887-1200) /uL Orange # (Auto) (0-900) /uL Eos # (Auto) (0-450) /uL Baso # (Auto) (0-100) /uL Sodium (137-145) mmol/L Potassium (3.4-5.1) mmol/L Chloride (98-107) mmol/L Carbon Dioxide (22-32) mmol/L BUN (7-17) mg/dL Creatinine (0.52-1.04) mg/dL Estimated GFR (>60) mL/min BUN/Creatinine Ratio (6-22) Glucose (70-100) mg/dL Calcium (8.4-10.2) mg/dL Total Bilirubin (0.2-1.3) mg/dL AST (14-36) IU/L ALT (<35) IU/L Alkaline Phosphatase (38-126) U/L Total Protein (6.3-8.2) g/dL Albumin (3.5-5.0) g/dL Globulin (1.7-4.1) g/dL Albumin/Globulin Ratio (1.0-2.8) Lipase (23-300) U/L Prolactin (3.0-18.6) ng/mL SARS-CoV-2 (PCR) Negative (Negative) Point of Care Testing Test Results Negative Glucose POC 92 Urine Dip Bedside Urine Glucose Negative Bedside Urine Bilirubin - Negative Bedside Urine Ketone - Negative Urine Specific [place] 1.010 Bedside Urine Occult Blood +/- Bedside Urine pH 6.5 Bedside Urine Protein - Negative Bedside Urine Urobilinogen - Negative Bedside Urine Nitrite - Negative Point of care testing: Point of Care Testing Test Results Negative Glucose POC 92 Urine Dip Bedside Urine Glucose Negative Bedside Urine Bilirubin - Negative Bedside Urine Ketone - Negative Urine Specific [place] 1.010 Bedside Urine Occult Blood +/- Bedside Urine pH 6.5 Bedside Urine Protein - Negative Bedside Urine Urobilinogen - Negative Bedside Urine Nitrite - Negative Discharge Plan Departure Patient Disposition: Home Clinical Impression: Syncope Instructions: DI for Closed Head Injury Activity Restrictions/Additional Instructions: You were evaluated in the ED today for a fall and loss of consciousness. You workup did not show any acute findings. Your CT head did show an incidental finding of a subarachnoid cyst, mastoid fluids. Please follow-up with the neurologist to address these findings. Return to the ED if your symptoms worsen, you have chest pain, shortness of breath, further episodes of loss of consciousness or falls. Prescriptions: No Action drospirenone-ethinyl estradiol [CLARITA (28)] 3-0.02 mg tablet 1 tab PO DAILY Qty: 84 0RF Rx Instructions: Brand-name only. Did not tolerate generic Referrals: Larry Armendariz MD [Primary Care Provider] - <Clementina Sibley DO - Last Filed: 05/26/21 07:49> Cosign ED Attending Cosignature Attestation: Patient apparently was brought in on backboard in C-collar I did help remove once I was made aware of this. She was mildly tender in her thoracic spine. Overall awake alert oriented moving all extremities. I was immediately available in the department for consultation. Documentation has been reviewed. I agree with assessment and plan.
[2021-05-25 13:28] VITALS: BP 117/74; PULSE 98; RESP 18; TEMP 37; O2SAT 98; BMI 25.1
[2021-05-25 13:35] VITALS: TEMP 36.8
[2021-05-25 13:42] VITALS: PULSE 70; O2SAT 99
--- NOTE | 2021-05-25 13:55 | DI.RAD.S_ITS ---
PROCEDURE: XR CHEST 1V INDICATIONS: syncope TECHNIQUE: One view of the chest was acquired. COMPARISON: None. FINDINGS: Surgical changes and devices: Backboard artifact minimally limits assessment. Lungs and pleura: Lungs are clear. No pleural effusions or pneumothorax. Mediastinum: Mediastinal contours appear normal. Heart size is normal. Bones and chest wall: No suspicious bony lesions. Overlying soft tissues appear unremarkable. IMPRESSION: No acute cardiopulmonary findings Approved by: Tonio Singletary M.D. on 05/25/2021 at 14:01
[2021-05-25 14:00] VITALS: PULSE 73; O2SAT 100
[2021-05-25 14:00] LABS: Add Manual Diff / Slide Review NO; Basophils Absolute Auto 0 /uL (0-100); Basophils Percent Auto 0.4 % (0-2); Eosinophils Absolute Auto 100 /uL (0-450); Eosinophils Percent Auto 1.1 % (2-4); Hematocrit 33.7 % (36-46); Hemoglobin 11.5 g/dL (12.0-16.0); Lymphocytes Absolute Auto 2900 /uL (1100-4500); Lymphocytes Percent Auto 41.7 % (25-40); Mean Corpuscular HGB Conc 34.1 % (30-36); Mean Corpuscular Hemoglobin 28.8 PG (26-34); Mean Corpuscular Volume 84.4 fL (80-100); Monocytes Absolute Auto 600 /uL (0-900); Monocytes Percent Auto 8.9 % (3-14); Neutrophils Absolute Auto 3300 /uL (1500-7000); Neutrophils Percent Auto 47.9 % (50-75); Platelet Count 465 X10^3/uL (150-400); Red Blood Cell Count 3.99 X10^6/uL (4.0-5.2); Red Cell Distribution Width 13.1 % (11.6-14.8); White Blood Cell Count 6.9 X10^3/uL (4.5-11.0)
--- NOTE | 2021-05-25 14:03 | DI.CT.S_ITS ---
PROCEDURE: CT HEAD/BRAIN WO CON INDICATIONS: syncope, fall TECHNIQUE: Noncontrast 4.5 mm thick angled axial sections acquired from the foramen magnum to the vertex, with coronal and sagittal reformats. For radiation dose reduction, the following was used: automated exposure control, adjustment of mA and/or kV according to patient size. COMPARISON: [facility], CT, CT HEAD/BRAIN WO CON, 04/30/2021, 10:57. FINDINGS: Image quality: Excellent. CSF spaces: Basal cisterns are patent. No extra-axial fluid collections. Ventricles are normal in size and shape. Brain: No midline shift. No intracranial masses or hemorrhage. [place]-white matter interface is normal. 2.6 x 1.4 cm arachnoid cyst noted in the left middle cranial fossa anteriorly. Skull and face: Calvarium and visualized facial bones are intact, without suspicious lesions. Sinuses: Left mastoid fluid noted. IMPRESSION: 1. No intracranial hemorrhage or mass effect 2. Left mastoid fluid may be inflammatory or postinflammatory 3. Incidental arachnoid cyst in the left middle cranial fossa Approved by: Tonio Singletary M.D. on 05/25/2021 at 14:04
--- NOTE | 2021-05-25 14:03 | DI.CT.S_ITS ---
PROCEDURE: CT CERVICAL SPINE WO CON INDICATIONS: fall, syncope TECHNIQUE: Noncontrast 3 mm thick sections acquired from the skull base to the T4 level. Sagittal and coronal reformats were then constructed. For radiation dose reduction, the following was used: automated exposure control, adjustment of mA and/or kV according to patient size. COMPARISON: None. FINDINGS: Image quality: Diagnostic. Evaluation at C4 and C5 level is slightly degraded due to patient motion. Bones: No fractures or dislocations. Straightening of normal cervical lordosis. Visualized superior ribs are intact. Soft tissues: Prevertebral soft tissues are normal in thickness. No paravertebral hematomas. No apical pneumothoraces. IMPRESSION: No gross acute cervical spine fracture or dislocation. Study is slightly degraded due to patient motion. Dictated by: Jalen Calero M.D. on 05/25/2021 at 15:12 Approved by: Jalen Calero M.D. on 05/25/2021 at 15:14
[2021-05-25 14:09] LABS: Alanine Aminotransferase 14 IU/L (<35); Albumin 4.6 g/dL (3.5-5.0); Albumin Globulin Ratio 1.2 (1.0-2.8); Alkaline Phosphatase 77 U/L (38-126); Aspartate Aminotransferase 26 IU/L (14-36); BUN Creatinine Ratio 16.7 (6-22); Bilirubin Total 0.2 mg/dL (0.2-1.3); Blood Urea Nitrogen 13 mg/dL (7-17); Calcium 9.8 mg/dL (8.4-10.2); Carbon Dioxide 26 mmol/L (22-32); Chloride 104 mmol/L (98-107); Estimated Glomerular Filt Rate > 60.0 mL/min (>60); Globulin 3.7 g/dL (1.7-4.1); Glucose 86 mg/dL (70-100); HEMOLYSIS < 15 (0-50); Lipase 160 U/L (23-300); Potassium 3.9 mmol/L (3.4-5.1); Sodium 137 mmol/L (137-145); Total Protein 8.3 g/dL (6.3-8.2)
[2021-05-25 14:36] LABS: COVID19 -Nasal RAPID Negative (Negative)
--- NOTE | 2021-05-25 14:46 | DI.RAD.S_ITS ---
PROCEDURE: XR THORACIC SPINE 3V INDICATIONS: fall TECHNIQUE: 3 views of the thoracic spine were acquired. COMPARISON: None. FINDINGS: Bones: No fractures or dislocations. No suspicious bony lesions. 12 pairs of ribs are noted, and appear intact where visualized. Soft tissues: No paravertebral stripe thickening. IMPRESSION: Unremarkable thoracic spine radiographs. No fracture. Approved by: Tonio Singletary M.D. on 05/25/2021 at 14:53
--- NOTE | 2021-05-25 14:46 | DI.RAD.S_ITS ---
PROCEDURE: XR LUMBAR SPINE 2-3V INDICATIONS: fall, syncope TECHNIQUE: 3 views of the lumbar spine were acquired. COMPARISON: None. FINDINGS: Bones: 5 [id number] vertebrae are present. There is normal bony alignment. No vertebral body compression fractures. No suspicious bony lesions. Soft tissues: Overlying bowel gas pattern is normal. No suspicious soft tissue calcifications. IMPRESSION: Unremarkable lumbar spine radiographs. No fracture. Approved by: Tonio Singletary M.D. on 05/25/2021 at 14:53
[2021-05-25 15:14] LABS: Prolactin 19.2 ng/mL (3.0-18.6)
[2021-05-25 16:14] VITALS: PULSE 72; O2SAT 100
[2021-05-25 16:19] VITALS: BP 119/78
== END 2021-05-25 16:29 | disposition home or self-care (01) ==
PROVIDERS: Emergency Provider Student in an Organized Health Care Education/Training Program; PCP Family Medicine
DX: R55 Syncope and collapse (principal); Z20.822 Contact with and (suspected) exposure to COVID-19
CPT/HCPCS: 70450; 71045; 72072; 72100; 72125; 80053; 81003; 81025; 82962; 83690; 84146; 85025; 87635; 93005; 99283; 99284; C9803

== ENCOUNTER 2021-06-13 15:42 | Emergency (ER) | payer OTHER, SELFPAY ==
[2021-06-13 15:46] VITALS: BP 168/88; PULSE 85; RESP 22; TEMP 37.1; O2SAT 100
--- NOTE | 2021-06-13 15:51 | ED.NEUROSD ---
HPI - Neuro Symptoms/Deficit <Nirmala Vasquez DO - Last Filed: 06/13/21 15:52> General Chief Complaint: Neuro Symptoms/Deficit Stated Complaint: HX cyst on brain, memory loss blurred vision Time Seen by Provider: 06/13/21 15:51 Source: patient and family Mode of arrival: Ambulatory Related Data Allergies Allergy/AdvReac Type Severity Reaction Status Date / Time drospirenone Allergy Severe Vomiting Verified 06/03/21 14:49 Patient History <Nirmala Vasquez DO - Last Filed: 06/13/21 15:52> Medical History (Updated 06/09/21 @ 00:00 by ) Arachnoid cyst of posterior cranial fossa control counseling Concussion History of traumatic brain injury Mastoid pain Social History Smoking Status: Never smoker Smoking Status: Never smoker alcohol intake frequency: holidays/special occasions only Substance Use Type: does not use Exam <Nirmala Vasquez DO - Last Filed: 06/13/21 15:52> Initial Vital Signs Initial Vital Signs: Vital Signs Temperature 98.7 F 06/13/21 15:46 Pulse Rate 85 06/13/21 15:46 Respiratory Rate 22 06/13/21 15:46 Blood Pressure 168/88 H 06/13/21 15:46 Pulse Oximetry 100 06/13/21 15:46 Course <Nirmala Vasquez DO - Last Filed: 06/13/21 15:52> Orders Ordered: ED Orders 06/13/21 16:07 CBC Auto Diff [Complete Blood Count AUTO DIFF] Stat CMP [Comprehensive Metabolic Panel] Stat Ethanol (ETOH) Stat Magnesium Stat Prolactin Stat Troponin I Stat 06/13/21 16:46 CT head/brain wo con Stat EKG-12 Lead Stat 06/13/21 17:00 Urine Drug Screen, Rapid Stat Discontinued Medications Sodium Chloride (Normal Saline 0.9%) 1,000 mls @ 1,000 mls/hr IV BOLUS ONE Stop: 06/13/21 17:45 Last Admin: 06/13/21 16:59 Dose: 1,000 mls/hr Documented by: ELIDIA Vital Signs Vital signs: Vital Signs - 8 hr 06/13/21 15:46 Temperature 98.7 F Pulse Rate 85 Respiratory Rate 22 Blood Pressure 168/88 H Pulse Oximetry 100 MDM - Neuro Symptoms/Deficit <Nirmala Vasquez, - Last Filed: 06/13/21 15:52> Lab Data Result diagrams: 06/13/21 16:07 06/13/21 16:07 Labs: Lab Results 06/13/21 06/13/21 06/13/21 Range/Units 16:07 16:07 17:00 WBC 8.1 (4.5-11.0) X10^3/uL RBC 4.31 (4.0-5.2) X10^6/uL Hgb 12.3 (12.0-16.0) g/dL Hct 36.2 (36-46) % MCV 84.0 (80-100) fL MCH 28.5 (26-34) PG MCHC 34.0 (30-36) % RDW 12.9 (11.6-14.8) % Plt Count 461 H (150-400) X10^3/uL Neut % (Auto) 56.3 (50-75) % Lymph % (Auto) 34.2 (25-40) % [place] % (Auto) 7.0 (3-14) % Eos % (Auto) 1.6 L (2-4) % Baso % (Auto) 0.9 (0-2) % Neut # (Auto) 4600 (6926-5417) /uL Lymph # (Auto) 2800 (3531-3323) /uL [place] # (Auto) 600 (0-900) /uL Eos # (Auto) 100 (0-450) /uL Baso # (Auto) 100 (0-100) /uL Sodium 139 (137-145) mmol/L Potassium 4.6 (3.4-5.1) mmol/L Chloride 105 (98-107) mmol/L Carbon Dioxide 27 (22-32) mmol/L BUN 11 (7-17) mg/dL Creatinine 0.72 (0.52-1.04) mg/dL Estimated GFR > 60.0 (>60) mL/min BUN/Creatinine Ratio 15.3 (6-22) Glucose 95 (70-100) mg/dL Calcium 10.0 (8.4-10.2) mg/dL Total Bilirubin 0.3 (0.2-1.3) mg/dL AST 34 (14-36) IU/L ALT 22 (<35) IU/L Alkaline Phosphatase 87 (38-126) U/L Total Protein 8.9 H (6.3-8.2) g/dL Albumin 4.7 (3.5-5.0) g/dL Globulin 4.2 H (1.7-4.1) g/dL Albumin/Globulin Ratio 1.1 (1.0-2.8) U Opiates 300ng/mL cut Negative (Negative) Ur Oxycodone Screen Negative (Negative) Urine Methadone Screen Negative (Negative) Ur Barbiturates Screen Negative (Negative) U Tricyclic Antidepress Negative (Negative) Ur Phencyclidine Scrn Negative (Negative) Ur Amphetamines Screen Negative (Negative) U Methamphetamines Scrn Negative (Negative) Ur MDMA Scrn (Ecstasy) Negative (Negative) U Benzodiazepines Scrn Negative (Negative) Urine Cocaine Screen Negative (Negative) U Marijuana (THC) Screen Negative (Negative) Point of Care Testing Test Results Negative Urine Dip Bedside Urine Glucose Negative Bedside Urine Bilirubin - Negative Bedside Urine Ketone - Negative Urine Specific [place] 1.025 Bedside Urine Occult Blood +/- Bedside Urine pH 6 Bedside Urine Protein - Negative Bedside Urine Urobilinogen - Negative Bedside Urine Nitrite - Negative Bedside Urine Leukocytes - Negative Esterase Discharge Plan Departure Referrals: Larry Armendariz MD [Primary Care Provider] -
[2021-06-13 16:31] LABS: Add Manual Diff / Slide Review NO; Basophils Absolute Auto 100 /uL (0-100); Basophils Percent Auto 0.9 % (0-2); Eosinophils Absolute Auto 100 /uL (0-450); Eosinophils Percent Auto 1.6 % (2-4); Hematocrit 36.2 % (36-46); Hemoglobin 12.3 g/dL (12.0-16.0); Lymphocytes Absolute Auto 2800 /uL (1100-4500); Lymphocytes Percent Auto 34.2 % (25-40); Mean Corpuscular Hemoglobin 28.5 PG (26-34); Monocytes Absolute Auto 600 /uL (0-900); Neutrophils Absolute Auto 4600 /uL (1500-7000); Neutrophils Percent Auto 56.3 % (50-75); Platelet Count 461 X10^3/uL (150-400); Red Blood Cell Count 4.31 X10^6/uL (4.0-5.2); Red Cell Distribution Width 12.9 % (11.6-14.8); White Blood Cell Count 8.1 X10^3/uL (4.5-11.0)
[2021-06-13 16:43] LABS: Alanine Aminotransferase 22 IU/L (<35); Albumin 4.7 g/dL (3.5-5.0); Albumin Globulin Ratio 1.1 (1.0-2.8); Alkaline Phosphatase 87 U/L (38-126); Aspartate Aminotransferase 34 IU/L (14-36); BUN Creatinine Ratio 15.3 (6-22); Bilirubin Total 0.3 mg/dL (0.2-1.3); Blood Urea Nitrogen 11 mg/dL (7-17); Carbon Dioxide 27 mmol/L (22-32); Chloride 105 mmol/L (98-107); Estimated Glomerular Filt Rate > 60.0 mL/min (>60); Globulin 4.2 g/dL (1.7-4.1); Glucose 95 mg/dL (70-100); HEMOLYSIS < 15 (0-50); Potassium 4.6 mmol/L (3.4-5.1); Sodium 139 mmol/L (137-145); Total Protein 8.9 g/dL (6.3-8.2)
--- NOTE | 2021-06-13 16:46 | DI.CT.S_ITS ---
PROCEDURE: CT HEAD/BRAIN WO CON INDICATIONS: syncope vs other, memory change, blurred vision TECHNIQUE: Noncontrast 4.5 mm thick angled axial sections acquired from the foramen magnum to the vertex, with coronal and sagittal reformats. For radiation dose reduction, the following was used: automated exposure control, adjustment of mA and/or kV according to patient size. COMPARISON: [facility], CT, CT HEAD/BRAIN WO CON, 02/04/2021, 17:41. [facility], CT, CT HEAD/BRAIN WO CON, 04/30/2021, 10:57. [facility], CT, CT HEAD/BRAIN WO CON, 05/25/2021, 14:30. FINDINGS: Image quality: Excellent. CSF spaces: Basal cisterns are patent. There is a small arachnoid cyst seen involving the anterior aspect of the left middle cranial fossa, as before.. Ventricles are normal in size and shape. Brain: No midline shift. No intracranial masses or hemorrhage. [place]-white matter interface is normal. Skull and face: Calvarium and visualized facial bones are intact, without suspicious lesions. Sinuses: A moderate amount of fluid is seen within the left mastoid air cells. The right mastoid air cells appear clear. No significant paranasal sinus disease is seen. IMPRESSION: No acute intracranial process is seen. Moderate left mastoid air cell fluid again seen. Incidental note is made of: Stable left middle cranial fossa arachnoid cyst Dictated by: Tima Marcial M.D. on 06/13/2021 at 16:47 Approved by: Tima Marcial M.D. on 06/13/2021 at 16:49
[2021-06-13] MEDS: SODIUM CHLORIDE 0.9% 1,000 ML 1000 ML IV (16:59)
[2021-06-13 17:16] LABS: UR Morphine/Opiate cutoff 300 Negative (Negative); Ur Creatinine Normal (Normal); Ur Specific Gravity Normal (Normal); Urine Amphetamines Negative (Negative); Urine Barbiturates Negative (Negative); Urine Benzodiazepines Negative (Negative); Urine Cocaine Negative (Negative); Urine MDMA Negative (Negative); Urine Methadone Negative (Negative); Urine Methamphetamines Negative (Negative); Urine Oxycodone Negative (Negative); Urine Phencyclidine Negative (Negative); Urine Tetrahydrocannabinol Negative (Negative); Urine Tricyclic Antidepressant Negative (Negative); Urine pH Normal (Normal)
[2021-06-13 17:59] LABS: Magnesium 1.9 mg/dL (1.6-2.3)
--- NOTE | 2021-06-13 18:04 | ED_ITS ---
HPI - Neuro Symptoms/Deficit General Chief Complaint: Neuro Symptoms/Deficit Stated Complaint: HX cyst on brain, memory loss blurred vision Time Seen by Provider: 06/13/21 15:51 Source: patient and family Mode of arrival: Ambulatory History of Present Illness HPI Narrative: Patient is a 20-year-old female with a history of an arachnoid cyst, TBI presenting today with a syncopal episode. She reports that she has multiple syncopal episodes. She states that she has had a 1 about every month for while. She saw her primary care who did some cranial 0 mg to help improve fluid movement. She does have a referral to a neurologist but she has not seen 1 yet. He states today she was unloading groceries she went to the bedroom she felt h ot flashes and fell to the floor. heard her immediately came to her she was awake alert oriented. There is no foaming at the mouth she has no urinary incontinence. Patient says that she can always feel it coming on, and she has to sit down to help on a preventative. However she is having them more frequently this month she has had 2 which is concerning to her. She has no headache no nausea vomiting numbness tingling or weakness. She has not had a Holter monitor or cardiac of valuation. Related Data Allergies Allergy/AdvReac Type Severity Reaction Status Date / Time drospirenone Allergy Severe Vomiting Verified 06/03/21 14:49 Review of Systems Review of Systems Narrative: GENERAL: Denies chills, fatigue, malaise, fever, sweats, travel HEENT: Denies sinus pain, ear pain, sore throat, difficulty swallowing, neck pain RESPIRATORY: Denies dyspnea, cough, wheezing, hemoptysis, sputum. CARDIOVASCULAR: Denies chest pain, palpitations, orthopnea, edema GASTROINTESTINAL: Denies nausea, vomiting, abdominal pain, diarrhea, constipation, melena. : Denies dysuria, frequency, incontinence, hematuria, urinary retention, flank pain. MUSCULOSKELETAL: Denies weakness, joint pain, or bony pain SKIN: No rash, no erythema, no pruritus NEUROLOGIC: See HPI PSYCHIATRIC: No concerning psychosocial issues. 12 point review of systems is negative except for those stated above and HPI Patient History Medical History (Updated 06/13/21 @ 19:06 by Clementina Sibley DO) Arachnoid cyst of posterior cranial fossa control counseling Concussion History of traumatic brain injury Mastoid pain Social History Smoking Status: Never smoker Smoking Status: Never smoker alcohol intake frequency: holidays/special occasions only Substance Use Type: does not use Exam Initial Vital Signs Initial Vital Signs: Vital Signs Temperature 98.7 F 06/13/21 15:46 Pulse Rate 85 06/13/21 15:46 Respiratory Rate 22 06/13/21 15:46 Blood Pressure 168/88 H 06/13/21 15:46 Pulse Oximetry 100 06/13/21 15:46 GENERAL: Alert well-appearing 20-year-old female HEENT: Head atraumatic,EOMI, pupils reactive, face symmetric, moist mucous memb ranes CARDIOVASCULAR: Regular rate and rhythm without murmurs, rubs or gallops. RESPIRATORY: Breath sounds equal bilaterally, no wheezes rales or rhonchi. ABDOMEN: Soft, nontender. Normoactive bowel sounds all 4 quadrants. No guarding or rebound. EXTREMITIES: Normal range of motion, no clubbing or edema. Neurovascularly intact NEUROLOGICAL: Alert and oriented x4.Normal gait and speech. Cranial nerves II through XII grossly intact. Good [id number], good [id number], strength equal bilaterally, no dysarthria or aphasia, sensation in tact to soft touch bilaterally, no visual changes, no facial droop SKIN: Warm, dry, no laceration, no petechiae, no rashes or lesions. Scores NIH Stroke Scale Level of Conciousness: Alert, keenly responsive Ask month/age: Answers both questions correctly. Open/close eyes, close hand: Performs both tasks correctly Best gaze horizontal: Normal Visual [place]: No visual loss Facial palsy: Normal symetrical movement Left arm drift: No drift for full 10 sec Right arm drift: No drift for full 10 sec Left leg drift: No drift for full 5 sec Right leg drift: No drift for full 5 sec Limb ataxia: Absent Sensory on face/arms/legs: Normal, no sensory loss Best language: No aphasia, normal Dysarthria: Normal Extinction or inattention: No abnormality Total NIH Stroke scale score: 0 Course Orders Ordered: ED Orders 06/13/21 18:46 EKG-12 Lead Stat Discontinued Medications Sodium Chloride (Normal Saline 0.9%) 1,000 mls @ 1,000 mls/hr IV BOLUS ONE Stop: 06/13/21 17:45 Last Infusion: 06/13/21 19:13 Dose: 0 mls/hr Documented by: Admin: 06/13/21 16:59 Dose: 1,000 mls/hr Documented by: ELIDIA Vital Signs Vital signs: Vital Signs - 8 hr 06/13/21 19:01 Pulse Rate 75 Respiratory Rate 12 Blood Pressure 108/78 Pulse Oximetry 96 MDM - Neuro Symptoms/Deficit Lab Data Result diagrams: 06/13/21 16:07 06/13/21 16:07 Labs: Lab Results 06/13/21 06/13/21 06/13/21 Range/Units 16:07 16:07 16:07 WBC 8.1 (4.5-11.0) X10^3/uL RBC 4.31 (4.0-5.2) X10^6/uL Hgb 12.3 (12.0-16.0) g/dL Hct 36.2 (36-46) % MCV 84.0 (80-100) fL MCH 28.5 (26-34) PG MCHC 34.0 (30-36) % RDW 12.9 (11.6-14.8) % Plt Count 461 H (150-400) X10^3/uL Neut % (Auto) 56.3 (50-75) % Lymph % (Auto) 34.2 (25-40) % [place] % (Auto) 7.0 (3-14) % Eos % (Auto) 1.6 L (2-4) % Baso % (Auto) 0.9 (0-2) % Neut # (Auto) 4600 (7598-9525) /uL Lymph # (Auto) 2800 (0232-4466) /uL [place] # (Auto) 600 (0-900) /uL Eos # (Auto) 100 (0-450) /uL Baso # (Auto) 100 (0-100) /uL Sodium 139 (137-145) mmol/L Potassium 4.6 (3.4-5.1) mmol/L Chloride 105 (98-107) mmol/L Carbon Dioxide 27 (22-32) mmol/L BUN 11 (7-17) mg/dL Creatinine 0.72 (0.52-1.04) mg/dL Estimated GFR > 60.0 (>60) mL/min BUN/Creatinine Ratio 15.3 (6-22) Glucose 95 (70-100) mg/dL Calcium 10.0 (8.4-10.2) mg/dL Magnesium 1.9 (1.6-2.3) mg/dL Total Bilirubin 0.3 (0.2-1.3) mg/dL AST 34 (14-36) IU/L ALT 22 (<35) IU/L Alkaline Phosphatase 87 (38-126) U/L Troponin I (0.01-0.034) ng/mL Total Protein 8.9 H (6.3-8.2) g/dL Albumin 4.7 (3.5-5.0) g/dL Globulin 4.2 H (1.7-4.1) g/dL Albumin/Globulin Ratio 1.1 (1.0-2.8) Prolactin 11.6 (3.0-18.6) ng/mL U Opiates 300ng/mL cut (Negative) Ur Oxycodone Screen (Negative) Urine Methadone Screen (Negative) Ur Barbiturates Screen (Negative) U Tricyclic Antidepress (Negative) Ur Phencyclidine Scrn (Negative) Ur Amphetamines Screen (Negative) U Methamphetamines Scrn (Negative) Ur MDMA Scrn (Ecstasy) (Negative) U Benzodiazepines Scrn (Negative) Urine Cocaine Screen (Negative) U Marijuana (THC) Screen (Negative) Ethyl Alcohol < 10 ( - 10) mg/dL 06/13/21 06/13/21 Range/Units 16:07 17:00 WBC (4.5-11.0) X10^3/uL RBC (4.0-5.2) X10^6/uL Hgb (12.0-16.0) g/dL Hct (36-46) % MCV (80-100) fL MCH (26-34) PG MCHC (30-36) % RDW (11.6-14.8) % Plt Count (150-400) X10^3/uL Neut % (Auto) (50-75) % Lymph % (Auto) (25-40) % [place] % (Auto) (3-14) % Eos % (Auto) (2-4) % Baso % (Auto) (0-2) % Neut # (Auto) (3784-5342) /uL Lymph # (Auto) (8407-6126) /uL [place] # (Auto) (0-900) /uL Eos # (Auto) (0-450) /uL Baso # (Auto) (0-100) /uL Sodium (137-145) mmol/L Potassium (3.4-5.1) mmol/L Chloride (98-107) mmol/L Carbon Dioxide (22-32) mmol/L BUN (7-17) mg/dL Creatinine (0.52-1.04) mg/dL Estimated GFR (>60) mL/min BUN/Creatinine Ratio (6-22) Glucose (70-100) mg/dL Calcium (8.4-10.2) mg/dL Magnesium (1.6-2.3) mg/dL Total Bilirubin (0.2-1.3) mg/dL AST (14-36) IU/L ALT (<35) IU/L Alkaline Phosphatase (38-126) U/L Troponin I < 0.012 (0.01-0.034) ng/mL Total Protein (6.3-8.2) g/dL Albumin (3.5-5.0) g/dL Globulin (1.7-4.1) g/dL Albumin/Globulin Ratio (1.0-2.8) Prolactin (3.0-18.6) ng/mL U Opiates 300ng/mL cut Negative (Negative) Ur Oxycodone Screen Negative (Negative) Urine Methadone Screen Negative (Negative) Ur Barbiturates Screen Negative (Negative) U Tricyclic Antidepress Negative (Negative) Ur Phencyclidine Scrn Negative (Negative) Ur Amphetamines Screen Negative (Negative) U Methamphetamines Scrn Negative (Negative) Ur MDMA Scrn (Ecstasy) Negative (Negative) U Benzodiazepines Scrn Negative (Negative) Urine Cocaine Screen Negative (Negative) U Marijuana (THC) Screen Negative (Negative) Ethyl Alcohol ( - 10) mg/dL Point of Care Testing Test Results Negative Urine Dip Bedside Urine Glucose Negative Bedside Urine Bilirubin - Negative Bedside Urine Ketone - Negative Urine Specific [place] 1.025 Bedside Urine Occult Blood +/- Bedside Urine pH 6 Bedside Urine Protein - Negative Bedside Urine Urobilinogen - Negative Bedside Urine Nitrite - Negative Bedside Urine Leukocytes - Negative Esterase ECG Data Interpretation: Normal sinus rhythm rate 72 AL interval 166 QRS [address] changes Q-waves noted in leads 3 AVF but are nonpathologic and similar to previous EKG MDM Narrative Medical decision making narrative: Has multiple syncopal episodes 1 month they seem to come with warning. She reports that she has not yet had a Holter monitor. She has been referred to Neurology which is also very appropriate for her. After her syncopal events she has anxiety reaction and is hyperventilating. She is currently comfortable and asymptomatic. At this time head CT shows a stable arachnoid cyst blood work is overall reassuring. unlikely seizure with his prolactin is also negative. Discharge Plan Departure Patient Disposition: Home Clinical Impression: Syncope Instructions: DI for Syncope in Adults (Fainting) Activity Restrictions/Additional Instructions: Do not drive *You have been diagnosed with syncopal episode *What to do: At this time I do recommend an outpatient Holter monitor to check your heart rate. I agree with neurology referral home it also need a Cardiology referral. Increase her fluid intake throughout the day please eat regular meals. *Continue to take medications as directed *Follow up with your primary care provider in 2-3 days or call [phone] *Return to ER if you should have episode of syncope, chest pain palpitations shortness of breath persistent nausea vomiting or any new, worsening or conc erning symptoms Referrals: Larry Armendariz MD [Primary Care Provider] -
[2021-06-13 18:07] LABS: Ethanol (ETOH) < 10 mg/dL
[2021-06-13 18:12] LABS: Troponin I < 0.012 ng/mL (0.01-0.034)
--- NOTE | 2021-06-13 18:17 | PC.NURSE ---
Patient is concerned about her memory loss since her fall today. She is supposed to follow up with her a neurologist but cannot get in t be seen.
[2021-06-13 18:41] LABS: Prolactin 11.6 ng/mL (3.0-18.6)
[2021-06-13 19:01] VITALS: BP 108/78; PULSE 75; RESP 12; O2SAT 96
== END 2021-06-13 19:14 | disposition home or self-care (01) ==
PROVIDERS: Emergency Medicine; Emergency Provider Emergency Medicine; PCP Family Medicine
DX: R55 Syncope and collapse (principal)
CPT/HCPCS: 36415; 70450; 80053; 80305; 80320; 81003; 81025; 83735; 84146; 84484; 85025; 93005; 96360; 96361; 99284

== ENCOUNTER → 2021-11-24 12:32 | Outpatient (CLI) | payer OTHER, SELFPAY ==
[2021-11-24 14:30] LABS: Urine N gonorrhoeae NOT DETECTED
[2021-11-24 15:45] LABS: Urine Chlamydia NOT DETECTED
== END ==
PROVIDERS: PCP Family Medicine; Visit Provider Obstetrics & Gynecology
DX: Z34.82 Encounter for supervision of other normal pregnancy, second trimester (principal); Z3A.16 16 weeks gestation of pregnancy
CPT/HCPCS: 87491; 87591

== ENCOUNTER → 2021-12-17 14:46 | Outpatient (CLI) | payer OTHER, SELFPAY ==
--- NOTE | 2021-12-17 14:48 | DI.US.S_ITS ---
PROCEDURE: US OB >= 14 WEEKS FETUS INDICATIONS: 20 Week Anatomy Scan OUTSIDE/PRIOR DATING DATA: First dating scan (date and location): 09/24/2021 Estimated date of delivery (SUMAYA) from first dating scan: 05/09/2022 TECHNIQUE: Real-time scanning was performed of the fetus, with image documentation and biometric measurements. Endovaginal scanning: Not performed today COMPARISON: 09/24/2021 FINDINGS: General: A single living intrauterine gestation is present. Presentation: Vertex Placenta: Posterior without previa Amniotic fluid index: 14.9 cm heart rate: 168 beats per minute Maternal cervical canal: 3 cm biometrics: Biparietal diameter: 4.5 cm Head circumference: 16.3 cm Abdominal circumference: 15 cm Femur length: 3.2 cm Clinically estimated gestational age: 19 weeks and 4 days Composite gestational age from present scan: 19 weeks and 5 days Estimated weight and percentile: EFW at the 69th percentile Anatomic survey: Neuro: Not well seen Nuchal skin fold: Not well seen Face: Not well seen Spine: No evidence for spina bifida. Heart: Not well seen Diaphragm: Diaphragm is intact. Stomach: Left-sided stomach is present. Kidneys: No hydronephrosis. Normal is less than 5 mm in 2nd trimester, less than 7 mm in 3rd trimester. Cord: 3-vessel cord has orthotopic insertion. Bladder: Normal in size. Extremities: All 4 extremities identified. IMPRESSION: Living intrauterine gestation at 19 weeks and 4 days with concordant biometry today. Due to lie, head/brain structures and heart are not well seen. Attention on follow-up imaging. Anatomic survey is best performed after 20 weeks. Dictated by: Oskar Johnson M.D. on 12/17/2021 at 18:07 Approved by: Oskar Johnson M.D. on 12/17/2021 at 18:12
== END ==
PROVIDERS: PCP Family Medicine; Referring Provider Obstetrics & Gynecology; Visit Provider Obstetrics & Gynecology
DX: Z34.82 Encounter for supervision of other normal pregnancy, second trimester (principal); Z3A.19 19 weeks gestation of pregnancy
CPT/HCPCS: 76811

== ENCOUNTER → 2022-01-04 14:04 | Outpatient (CLI) | payer OTHER, SELFPAY ==
[2022-01-04 15:35] LABS: Add Manual Diff / Slide Review NO; Basophils Absolute Auto 100 /uL (0-100); Basophils Percent Auto 0.5 % (0-2); Eosinophils Absolute Auto 200 /uL (0-450); Eosinophils Percent Auto 1.7 % (2-4); Hematocrit 27.9 % (36-46); Hemoglobin 9.6 g/dL (12.0-16.0); Lymphocytes Absolute Auto 1300 /uL (1100-4500); Lymphocytes Percent Auto 12.9 % (25-40); Mean Corpuscular HGB Conc 34.5 % (30-36); Mean Corpuscular Hemoglobin 29.6 PG (26-34); Mean Corpuscular Volume 85.7 fL (80-100); Monocytes Absolute Auto 400 /uL (0-900); Monocytes Percent Auto 4.5 % (3-14); Neutrophils Absolute Auto 7800 /uL (1500-7000); Neutrophils Percent Auto 80.4 % (50-75); Platelet Count 375 X10^3/uL (150-400); Red Blood Cell Count 3.26 X10^6/uL (4.0-5.2); Red Cell Distribution Width 13.2 % (11.6-14.8); White Blood Cell Count 9.7 X10^3/uL (4.5-11.0)
[2022-01-04 15:50] LABS: Alanine Aminotransferase 11 IU/L (<35); Albumin 3.7 g/dL (3.5-5.0); Alkaline Phosphatase 71 U/L (38-126); Aspartate Aminotransferase 21 IU/L (14-36); BUN Creatinine Ratio 9.1 (6-22); Bilirubin Total 0.2 mg/dL (0.2-1.3); Blood Urea Nitrogen 5 mg/dL (7-17); Calcium 8.8 mg/dL (8.4-10.2); Carbon Dioxide 24 mmol/L (22-32); Chloride 103 mmol/L (98-107); Estimated Glomerular Filt Rate > 60 mL/min (>60); Globulin 3.6 g/dL (1.7-4.1); Glucose 89 mg/dL (70-100); HEMOLYSIS < 15 (0-50); Potassium 3.8 mmol/L (3.4-5.1); Sodium 135 mmol/L (137-145); Total Protein 7.3 g/dL (6.3-8.2); Uric Acid 3.6 mg/dL (2.5-6.2)
[2022-01-04 18:56] LABS: Creatinine Urine Random 57.6 mg/dL; Protein (Total) Urine Random 10 mg/dL (0-12); Protein Creatinine Ratio Urine 0.17 GRAM/24H
[2022-01-05 09:35] LABS: RPR Screen Non Reactive (Non Reactive)
[2022-01-06 16:08] LABS: Hepatitis B Surface Antigen NEGATIVE s/c (NEGATIVE)
== END ==
PROVIDERS: Obstetrics & Gynecology; PCP Family Medicine; Referring Provider Specialist; Visit Provider Specialist
DX: O16.2 Unspecified maternal hypertension, second trimester (principal); Z3A.22 22 weeks gestation of pregnancy
CPT/HCPCS: 36415; 80053; 82570; 84156; 84550; 85025; 86592; 87340

== ENCOUNTER → 2022-01-20 11:03 | Outpatient (CLI) | payer OTHER, SELFPAY ==
[2022-01-20 12:44] LABS: Hemoglobin 9.6 g/dL (12.0-16.0)
[2022-01-20 13:14] LABS: GTT (PREG) 1 Hour PP 50gm Dose 91 mg/dL (76-139)
== END ==
PROVIDERS: PCP Family Medicine; Referring Provider Specialist; Visit Provider Specialist
DX: O26.899 Other specified pregnancy related conditions, unspecified trimester (principal); Z3A.26 26 weeks gestation of pregnancy; Z67.91 Unspecified blood type, Rh negative
CPT/HCPCS: 82950; 85014; 85018; 86850

== ENCOUNTER 2022-02-09 18:05 | Inpatient (IN) | payer OTHER, SELFPAY ==
[2022-02-09 18:20] VITALS: BP 139/83; PULSE 120; RESP 20; TEMP 38.6; O2SAT 98
--- NOTE | 2022-02-09 18:53 | ED.FEVER ---
HPI - Fever <EMELI Oakes - Last Filed: 02/09/22 21:46> General Chief Complaint: Upper Respiratory Symptoms Stated Complaint: fever, w/v x1 day Time Seen by Provider: 02/09/22 18:42 Source: patient and EMS Mode of arrival: EMS History of Present Illness HPI Narrative: This is a 21-year-old female who is a and is 7 months and presents to the emergency department via EMS for fever of 106 at home today, states that last night it started with severe throat pain, fever, nausea and vomiting today. Patient states she is had history of strep throat at least 20 times. She states that she took Tylenol earlier but it has been about 5 or 6 hours since she has, T-max of a 106? at home, states that it was 103 via EMS and has trended down to 101.5 on arrival. She has a history of asthma, denies any wheezing or difficulty breathing. Patient states that she feels thirsty and dehydrated. She denies any dysuria, urinary frequency or urgency, denies any abdominal pain or abnormal vaginal discharge, back cramping. She denies any vaginal bleeding. She states that her OBGYN is Dr. Rodriguez, she states that she is seen many of the other ones and plans to deliver her baby here. Related Data Home Medications Medication Instructions Recorded Confirmed [id number] 400 mcg-om3 35 mg-dha 25 1 tab PO DAILY 09/16/21 01/20/22 mg-epa 5 mg-fish oil chewable tablet multivitamin 1 tab PO DAILY 09/16/21 01/20/22 ferrous gluconate 324 mg (37.5 mg 324 mg PO DAILY 01/05/22 01/20/22 iron) tablet Previous Rx's Medication Instructions Recorded albuterol sulfate 90 mcg/actuation See Rx Instructions .Route 11/24/21 aerosol inhaler .COMPLEX #20.1 grams Allergies Allergy/AdvReac Type Severity Reaction Status Date / Time drospirenone AdvReac Severe Vomiting Verified 01/20/22 10:34 Review of Systems <EMELI Oakes - Last Filed: 02/09/22 21:46> Review of Systems Narrative: Review of systems is negative for acute abnormalities unless otherwise noted in HPI Patient History <EMELI Oakes - Last Filed: 02/09/22 21:46> Medical History Arachnoid cyst of posterior cranial fossa control counseling Body posture problem Cervical somatic dysfunction Chronic left-sided thoracic back pain Concussion Cranial somatic dysfunction History of traumatic brain injury Mastoid pain Observed seizure-like activity Pelvic somatic dysfunction Sacral region somatic dysfunction Segmental and somatic dysfunction of abdomen and other regions Syncope and collapse Thoracic region somatic dysfunction Vasovagal attack Surgical History [place] teeth extracted Family History Mother Graves disease Hidradenitis suppurativa Grandfather Colon cancer Grandmother Alcoholism Social History marital status: household members: spouse lives independently: Yes housing: house pets and animals: Yes (2 dogs and 1 cat; will wear gloves and mask when changing litter box) education level: college (some college) occupational status: employed current occupational exposures/hazards: No special adan needs: No seatbelt use: always water heater temp set < 120 deg: Yes working smoke detector in home: Yes fire extinguisher in home: Yes carbon monox detector in home: Yes firearms in home: Yes do you feel safe at home: Yes Smoking Status: Never smoker second hand exposure: No alcohol intake: former substance use type: marijuana (Used prior to learning she was ) during the past year weight has: increased > 10 lbs well-balanced diet: about half the time daily servings fruits/ve-4 caffeine: No Type(s) of exercise: walking Smoking Status: Never smoker alcohol intake frequency: holidays/special occasions only Substance Use Type: does not use Exam <EMELI Oakes - Last Filed: 02/09/22 21:46> Narrative Exam Narrative: Reviewed vitals signs and nursing notes. General: cooperative, comfortable, in no acute distress, well groomed, febrile, vasovagal syncope in the hallway after her urine sample was obtained, she did not sustain injury HEENT: symmetrical facial expressions, moist mucous membranes, posterior pharynx is erythematous with tonsillar adenopathy with exudate, no cough, PERRLA, EOMI Cardiovascular: regular rate and rhythm, no peripheral edema, warm extremities Respiratory: normal effort, able to speak in complete sentences, without wheezing, stridor, or abnormal breath sounds. No retractions, tachypnea is present GI: abdomen gravid, nontender to palpation, nondistended, without masses, rebound tenderness or exquisite tenderness with exam. MSK: moves all extremities, neurovascularly intact, no weakness, normal tone without lower extremity edema Skin: brisk capillary refill, without pallor or erythema Neuro: normal speech and cognition, A&O x3, ambulatory, clear speech Psych: mental status is grossly normal, congruent mood, normal affect, pleasant and cooperative Initial Vital Signs Initial Vital Signs: Vital Signs Temperature 101.5 F H 02/09/22 18:20 Pulse Rate 120 H 02/09/22 18:20 Respiratory Rate 20 02/09/22 18:20 Blood Pressure 139/83 02/09/22 18:20 Pulse Oximetry 98 02/09/22 18:20 Oxygen Delivery Method 02/09/22 18:20 <Joe Fritz MD - Last Filed: 02/10/22 02:10> Initial Vital Signs Initial Vital Signs: Vital Signs Temperature 101.5 F H 02/09/22 18:20 Pulse Rate 120 H 02/09/22 18:20 Respiratory Rate 20 02/09/22 18:20 Blood Pressure 139/83 02/09/22 18:20 Pulse Oximetry 98 02/09/22 18:20 Oxygen Delivery Method 02/09/22 18:20 Course <EMELI Oakes - Last Filed: 02/09/22 21:46> Orders Ordered: ED Orders 02/09/22 18:20 Respiratory Panel (Film Array) Stat 02/09/22 18:30 Urine Culture Stat Urine Microscopic Stat 02/09/22 18:50 CBC Auto Diff [Complete Blood Count AUTO DIFF] Stat CMP [Comprehensive Metabolic Panel] Stat Lactate (Lactic Acid) Stat Procalcitonin Stat Uric Acid Stat 02/09/22 19:20 Throat Culture Stat 02/09/22 21:13 Urinalysis and Microscopic Stat 02/09/22 21:25 Blood Culture Stat Acetaminophen (Acetaminophen 325 Mg Tablet) 650 mg PO Q6H JERMAIN Last Admin: 02/10/22 00:08 Dose: 650 mg Documented By: MIKE Ferrous Sulfate (Ferrous Sulfate 325 Mg Tablet) 325 mg PO DAILY [facility] Fish Oil (Fish Oil 1,000 Mg Capsule) 1,000 mg PO DAILY [facility] Sodium Chloride (Normal Saline 0.9%) 1,000 mls @ 100 mls/hr IV CONT JERMAIN Last Admin: 02/10/22 00:49 Dose: 100 mls/hr Documented By: MIKE Naloxone HCl (Naloxone 0.4 Mg/Ml Vial) 0.2 mg IV Q2MIN PRN PRN Reason: Opiate Reversal Ondansetron HCl (Ondansetron 4 Mg Odt) 4 mg PO Q8HR PRN PRN Reason: Nausea And Vomiting Discontinued Medications Acetaminophen (Acetaminophen 325 Mg Tablet) 975 mg PO NOW ONE Stop: 02/09/22 18:53 Last Admin: 02/09/22 19:14 Dose: 975 mg Documented By: VERA Sodium Chloride (Normal Saline 0.9%) 1,000 mls @ 1,000 mls/hr IV BOLUS ONE Stop: 02/09/22 19:42 Last Infusion: 02/09/22 21:29 Dose: 0 mls/hr Documented By: Admin: 02/09/22 19:22 Dose: 1,000 mls/hr Documented By: VERA Ceftriaxone Sodium 1,000 mg/ (Sodium Chloride) 100 mls @ 200 mls/hr IV NOW ONE Stop: 02/09/22 19:22 Last Infusion: 02/09/22 22:05 Dose: 0 mls/hr Documented By: Admin: 02/09/22 21:28 Dose: 200 mls/hr Documented By: CARLYN Lactated Ringer's (Lactated Ringers) 1,000 mls @ 1,000 mls/hr IV BOLUS ONE Stop: 02/09/22 20:25 Last Infusion: 02/09/22 21:29 Dose: 0 mls/hr Documented By: Admin: 02/09/22 19:46 Dose: 1,000 mls/hr Documented By: CARLYN Sodium Chloride (Normal Saline 0.9%) 1,000 mls @ 1,000 mls/hr IV BOLUS ONE Stop: 02/09/22 23:40 Last Admin: 02/09/22 23:43 Dose: 1,000 mls/hr Documented By: MIKE Reevaluation(s) Reevaluation #1: heart tones checked by the RN are 194, no abdominal cramping, without abnormal vaginal discharge Consultations Consultation #1: Discuss patient's case with Dr. Fritz, he will assume her care, patient understands that we will likely keep her in the hospital for admission, blood cultures have been drawn, antibiotics are infusing with IV fluids Consultation #2: Spoke with Dr. Malin, she will admit patient. She will have L&D do monitoring. Patient denies abdominal pain pelvic pain no vaginal bleeding or discharge or fluid leak. Vital Signs Vital signs: Vital Signs - 8 hr 02/09/22 18:20 02/09/22 20:43 Temperature 101.5 F H 98.6 F Pulse Rate 120 H Respiratory Rate 20 Blood Pressure 139/83 Pulse Oximetry 98 Oxygen Delivery Method Room Air <Joe Fritz MD - Last Filed: 02/10/22 02:10> Course Course Narrative: I did see patient myself. She is cleared from injuries at this time. Patient did pass out in front of me next to my desk. No scalp or skull tenderness. No midline tenderness of the cervical thoracic or lumbar spine. Nontender bilateral shoulders elbows wrists pelvis hips knees and ankles. With assistance with multiple staff members and cautiously patient was able to get herself up and onto the stretcher in the hallway. Lam HAZEL Decision to Admit Date: 02/09/22 Decision to Admit time: 21:11 Orders Ordered: ED Orders 02/09/22 18:20 Respiratory Panel (Film Array) Stat 02/09/22 18:30 Urine Culture Stat Urine Microscopic Stat 02/09/22 18:50 CBC Auto Diff [Complete Blood Count AUTO DIFF] Stat CMP [Comprehensive Metabolic Panel] Stat Lactate (Lactic Acid) Stat Procalcitonin Stat Uric Acid Stat 02/09/22 19:20 Throat Culture Stat 02/09/22 21:13 Urinalysis and Microscopic Stat 02/09/22 21:25 Blood Culture Stat Acetaminophen (Acetaminophen 325 Mg Tablet) 650 mg PO Q6H JERMAIN Last Admin: 02/10/22 00:08 Dose: 650 mg Documented By: [facility] Ferrous Sulfate (Ferrous Sulfate 325 Mg Tablet) 325 mg PO DAILY [facility] Fish Oil (Fish Oil 1,000 Mg Capsule) 1,000 mg PO DAILY JERMAIN Sodium Chloride (Normal Saline 0.9%) 1,000 mls @ 100 mls/hr IV CONT JERMAIN Last Admin: 02/10/22 00:49 Dose: 100 mls/hr Documented By: MIKE Naloxone HCl (Naloxone 0.4 Mg/Ml Vial) 0.2 mg IV Q2MIN PRN PRN Reason: Opiate Reversal Ondansetron HCl (Ondansetron 4 Mg Odt) 4 mg PO Q8HR PRN PRN Reason: Nausea And Vomiting Discontinued Medications Acetaminophen (Acetaminophen 325 Mg Tablet) 975 mg PO NOW ONE Stop: 02/09/22 18:53 Last Admin: 02/09/22 19:14 Dose: 975 mg Documented By: VERA Sodium Chloride (Normal Saline 0.9%) 1,000 mls @ 1,000 mls/hr IV BOLUS ONE Stop: 02/09/22 19:42 Last Infusion: 02/09/22 21:29 Dose: 0 mls/hr Documented By: Admin: 02/09/22 19:22 Dose: 1,000 mls/hr Documented By: VERA Ceftriaxone Sodium 1,000 mg/ (Sodium Chloride) 100 mls @ 200 mls/hr IV NOW ONE Stop: 02/09/22 19:22 Last Infusion: 02/09/22 22:05 Dose: 0 mls/hr Documented By: Admin: 02/09/22 21:28 Dose: 200 mls/hr Documented By: CARLYN Lactated Ringer's (Lactated Ringers) 1,000 mls @ 1,000 mls/hr IV BOLUS ONE Stop: 02/09/22 20:25 Last Infusion: 02/09/22 21:29 Dose: 0 mls/hr Documented By: Admin: 02/09/22 19:46 Dose: 1,000 mls/hr Documented By: CARLYN Sodium Chloride (Normal Saline 0.9%) 1,000 mls @ 1,000 mls/hr IV BOLUS ONE Stop: 02/09/22 23:40 Last Admin: 02/09/22 23:43 Dose: 1,000 mls/hr Documented By: MIKE Consultations Consultation #2: Spoke with Dr. Lu, she will admit patient. She will have L&D do monitoring. Patient denies abdominal pain pelvic pain no vaginal bleeding or discharge or fluid leak. Time: 21:12 Vital Signs Vital signs: Vital Signs - 8 hr 02/09/22 18:20 02/09/22 20:43 Temperature 101.5 F H 98.6 F Pulse Rate 120 H Respiratory Rate 20 Blood Pressure 139/83 Pulse Oximetry 98 Oxygen Delivery Method Room Air MDM - Fever <Sonia Luciano, [facility] - Last Filed: 02/09/22 21:46> Lab Data Lab results narrative: Moderate leukocytosis, concerning for sepsis, unknown source, pending other lab work, strep testing, and other tests. UA only showing few bacteria Rapid strep is negative, throat culture is pending. Result diagrams: 02/09/22 18:50 02/09/22 18:50 Labs: Lab Results 02/09/22 02/09/22 02/09/22 Range/Units 18:20 18:30 18:50 WBC 19.3 H (4.5-11.0) X10^3/uL RBC 3.43 L (4.0-5.2) X10^6/uL Hgb 9.8 L (12.0-16.0) g/dL Hct 29.2 L (36-46) % MCV 85.2 (80-100) fL MCH 28.4 (26-34) PG MCHC 33.4 (30-36) % RDW 13.2 (11.6-14.8) % Plt Count 379 (150-400) X10^3/uL Neut % (Auto) 87.9 H (50-75) % Lymph % (Auto) 7.0 L (25-40) % [place] % (Auto) 5.0 (3-14) % Eos % (Auto) 0.0 L (2-4) % Baso % (Auto) 0.1 (0-2) % Neut # (Auto) 65930 H (2553-1656) /uL Lymph # (Auto) 1400 (8417-3801) /uL [place] # (Auto) 1000 H (0-900) /uL Eos # (Auto) 0 (0-450) /uL Baso # (Auto) 0 (0-100) /uL Sodium (137-145) mmol/L Potassium (3.4-5.1) mmol/L Chloride (98-107) mmol/L Carbon Dioxide (22-32) mmol/L BUN (7-17) mg/dL Creatinine (0.52-1.04) mg/dL Estimated GFR (>60) mL/min BUN/Creatinine Ratio (6-22) Glucose (70-100) mg/dL Lactate (0.7-2.1) mmol/L Uric Acid (2.5-6.2) mg/dL Calcium (8.4-10.2) mg/dL Total Bilirubin (0.2-1.3) mg/dL AST (14-36) IU/L ALT (<35) IU/L Alkaline Phosphatase (38-126) U/L Total Protein (6.3-8.2) g/dL Albumin (3.5-5.0) g/dL Globulin (1.7-4.1) g/dL Albumin/Globulin Ratio (1.0-2.8) Procalcitonin (<0.5) ng/mL Urine RBC 1-5/hpf (0-5/HPF) Urine WBC 1-5/hpf (0-5/HPF) Ur Squamous Epith Cells 1-5 /hpf (0-5/HPF) Urine Bacteria Few (2-10) H (None) Ur Culture Indicated? Specimen cultured Chlamy pneumoniae PCR Not detected (Not Detect) Adenovirus (PCR) Not detected (Not Detect) B. pertussis DNA (PCR) Not detected (Not Detecte) B.parapertussis DNA PCR Not detected (Not Detecte) Coronavirus OC43 (PCR) Not detected (Not Detect) Coronavirus HKU1 (PCR) Not detected (Not Detect) Coronavirus 229E (PCR) Not detected (Not Detect) SARS-CoV-2 (PCR) Not detected (Not Detecte) Coronavirus NL63 (PCR) Not detected (Not Detect) Human Metapneumovir PCR Not detected (Not Detect) Influenza Type A (PCR) Not detected (Not Detect) Influenza Type B (PCR) Not detected (Not Detect) M. pneumoniae (PCR) Not detected (Not Detect) Parainfluenza 1 (PCR) Not detected (Not Detect) Parainfluenza 2 (PCR) Not detected (Not Detect) Parainfluenza 3 (PCR) Not detected (Not Detect) Parainfluenza 4 (PCR) Not detected (Not Detect) RSV (PCR) Not detected (Not Detect) Entero/Rhino (PCR) Not detected (Not Detect) 1102/09/22 02/09/22 Range/Units 18:50 18:50 18:50 WBC (4.5-11.0) X10^3/uL RBC (4.0-5.2) X10^6/uL Hgb (12.0-16.0) g/dL Hct (36-46) % MCV (80-100) fL MCH (26-34) PG MCHC (30-36) % RDW (11.6-14.8) % Plt Count (150-400) X10^3/uL Neut % (Auto) (50-75) % Lymph % (Auto) (25-40) % [place] % (Auto) (3-14) % Eos % (Auto) (2-4) % Baso % (Auto) (0-2) % Neut # (Auto) (8848-3674) /uL Lymph # (Auto) (7539-2414) /uL [place] # (Auto) (0-900) /uL Eos # (Auto) (0-450) /uL Baso # (Auto) (0-100) /uL Sodium 132 L (137-145) mmol/L Potassium 3.5 (3.4-5.1) mmol/L Chloride 101 (98-107) mmol/L Carbon Dioxide 21 L (22-32) mmol/L BUN 6 L (7-17) mg/dL Creatinine 0.65 (0.52-1.04) mg/dL Estimated GFR > 60 (>60) mL/min BUN/Creatinine Ratio 9.2 (6-22) Glucose 90 (70-100) mg/dL Lactate 1.0 (0.7-2.1) mmol/L Uric Acid (2.5-6.2) mg/dL Calcium 8.6 (8.4-10.2) mg/dL Total Bilirubin 0.2 (0.2-1.3) mg/dL AST 22 (14-36) IU/L ALT 15 (<35) IU/L Alkaline Phosphatase 101 (38-126) U/L Total Protein 7.8 (6.3-8.2) g/dL Albumin 4.0 (3.5-5.0) g/dL Globulin 3.8 (1.7-4.1) g/dL Albumin/Globulin Ratio 1.1 (1.0-2.8) Procalcitonin 3.15 H (<0.5) ng/mL Urine RBC (0-5/HPF) Urine WBC (0-5/HPF) Ur Squamous Epith Cells (0-5/HPF) Urine Bacteria (None) Ur Culture Indicated? Chlamy pneumoniae PCR (Not Detect) Adenovirus (PCR) (Not Detect) B. pertussis DNA (PCR) (Not Detecte) B.parapertussis DNA PCR (Not Detecte) Coronavirus OC43 (PCR) (Not Detect) Coronavirus HKU1 (PCR) (Not Detect) Coronavirus 229E (PCR) (Not Detect) SARS-CoV-2 (PCR) (Not Detecte) Coronavirus NL63 (PCR) (Not Detect) Human Metapneumovir PCR (Not Detect) Influenza Type A (PCR) (Not Detect) Influenza Type B (PCR) (Not Detect) M. pneumoniae (PCR) (Not Detect) Parainfluenza 1 (PCR) (Not Detect) Parainfluenza 2 (PCR) (Not Detect) Parainfluenza 3 (PCR) (Not Detect) Parainfluenza 4 (PCR) (Not Detect) RSV (PCR) (Not Detect) Entero/Rhino (PCR) (Not Detect) 02/09/22 Range/Units 18:50 WBC (4.5-11.0) X10^3/uL RBC (4.0-5.2) X10^6/uL Hgb (12.0-16.0) g/dL Hct (36-46) % MCV (80-100) fL MCH (26-34) PG MCHC (30-36) % RDW (11.6-14.8) % Plt Count (150-400) X10^3/uL Neut % (Auto) (50-75) % Lymph % (Auto) (25-40) % [place] % (Auto) (3-14) % Eos % (Auto) (2-4) % Baso % (Auto) (0-2) % Neut # (Auto) (1672-8846) /uL Lymph # (Auto) (6018-8095) /uL [place] # (Auto) (0-900) /uL Eos # (Auto) (0-450) /uL Baso # (Auto) (0-100) /uL Sodium (137-145) mmol/L Potassium (3.4-5.1) mmol/L Chloride (98-107) mmol/L Carbon Dioxide (22-32) mmol/L BUN (7-17) mg/dL Creatinine (0.52-1.04) mg/dL Estimated GFR (>60) mL/min BUN/Creatinine Ratio (6-22) Glucose (70-100) mg/dL Lactate (0.7-2.1) mmol/L Uric Acid 3.5 (2.5-6.2) mg/dL Calcium (8.4-10.2) mg/dL Total Bilirubin (0.2-1.3) mg/dL AST (14-36) IU/L ALT (<35) IU/L Alkaline Phosphatase (38-126) U/L Total Protein (6.3-8.2) g/dL Albumin (3.5-5.0) g/dL Globulin (1.7-4.1) g/dL Albumin/Globulin Ratio (1.0-2.8) Procalcitonin (<0.5) ng/mL Urine RBC (0-5/HPF) Urine WBC (0-5/HPF) Ur Squamous Epith Cells (0-5/HPF) Urine Bacteria (None) Ur Culture Indicated? Chlamy pneumoniae PCR (Not Detect) Adenovirus (PCR) (Not Detect) B. pertussis DNA (PCR) (Not Detecte) B.parapertussis DNA PCR (Not Detecte) Coronavirus OC43 (PCR) (Not Detect) Coronavirus HKU1 (PCR) (Not Detect) Coronavirus 229E (PCR) (Not Detect) SARS-CoV-2 (PCR) (Not Detecte) Coronavirus NL63 (PCR) (Not Detect) Human Metapneumovir PCR (Not Detect) Influenza Type A (PCR) (Not Detect) Influenza Type B (PCR) (Not Detect) M. pneumoniae (PCR) (Not Detect) Parainfluenza 1 (PCR) (Not Detect) Parainfluenza 2 (PCR) (Not Detect) Parainfluenza 3 (PCR) (Not Detect) Parainfluenza 4 (PCR) (Not Detect) RSV (PCR) (Not Detect) Entero/Rhino (PCR) (Not Detect) Point of Care Testing Test Results Positive Rapid Strep A Negative Urine Dip Bedside Urine Glucose Negative Bedside Urine Bilirubin - Negative Bedside Urine Ketone - Negative Urine Specific [place] 1.015 Bedside Urine Occult Blood ++ Bedside Urine pH 7.0 Bedside Urine Protein - Negative Bedside Urine Urobilinogen - Negative Bedside Urine Nitrite - Negative Bedside Urine Leukocytes - Negative Esterase ECG Data Interpretation: EKG independently reviewed by myself at 1900 reveals normal sinus rhythm at 120 bpm with regular axis and intervals. No STEMI, ST segment changes, arrhythmia, or acute ischemic changes. MDM Narrative Medical decision making narrative: This is a 21-year-old female who presents to the emergency department for a T-max of 106? F today with symptoms starting last night including fever, sore throat, and vomiting today. Patient has a history of strep throat, states she is had it at least 20 times but denies any known history of group B strep. Patient is 7 months , OBGYN is Dr. Alejandre, she is without abdominal cramping, vaginal bleeding, or other abdominal pain. heart tones initially with her fever was 194, patient endorses decreased movement today. She has taken Tylenol, her fever was trending down to 103 when she arrived and even down to 101, her Tylenol was reduced and she was given 2 L IV fluid. UA shows few bacteria, without blood or WBCs. Patient was ambulating to the bathroom after she arrived here and had a vasovagal syncopal episode after she stood up, she did not sustain injury or hit her head, she was evaluated afterwards and denies any musculoskeletal pain abdominal pain, abdominal cramping or headache. Patient has a moderate leukocytosis of 19.3, mildly anemic but consistent with her priors, hemoglobin is 9.8, hematocrit 29.2, platelet count is normal, she has a left shift today, mild hyponatremia sodium of 132, potassium 3.5, CO2 of 21, BUN of 6 with a creatinine of 0.65. Lactate of 1.0, total bilirubin of 0.2 and no elevation to her liver enzymes. <Joe Fritz MD - Last Filed: 02/10/22 02:10> Differential Diagnosis Differential diagnosis: Likely fever of unknown origin, gastroenteritis, community acquired pneumonia, viral infection, sepsis and influenza Lab Data Labs: Lab Results 02/09/22 02/09/22 02/09/22 Range/Units 18:20 18:30 18:50 WBC 19.3 H (4.5-11.0) X10^3/uL RBC 3.43 L (4.0-5.2) X10^6/uL Hgb 9.8 L (12.0-16.0) g/dL Hct 29.2 L (36-46) % MCV 85.2 (80-100) fL MCH 28.4 (26-34) PG MCHC 33.4 (30-36) % RDW 13.2 (11.6-14.8) % Plt Count 379 (150-400) X10^3/uL Neut % (Auto) 87.9 H (50-75) % Lymph % (Auto) 7.0 L (25-40) % [place] % (Auto) 5.0 (3-14) % Eos % (Auto) 0.0 L (2-4) % Baso % (Auto) 0.1 (0-2) % Neut # (Auto) 52513 H (8418-5694) /uL Lymph # (Auto) 1400 (8734-0640) /uL [place] # (Auto) 1000 H (0-900) /uL Eos # (Auto) 0 (0-450) /uL Baso # (Auto) 0 (0-100) /uL Sodium (137-145) mmol/L Potassium (3.4-5.1) mmol/L Chloride (98-107) mmol/L Carbon Dioxide (22-32) mmol/L BUN (7-17) mg/dL Creatinine (0.52-1.04) mg/dL Estimated GFR (>60) mL/min BUN/Creatinine Ratio (6-22) Glucose (70-100) mg/dL Lactate (0.7-2.1) mmol/L Uric Acid (2.5-6.2) mg/dL Calcium (8.4-10.2) mg/dL Total Bilirubin (0.2-1.3) mg/dL AST (14-36) IU/L ALT (<35) IU/L Alkaline Phosphatase (38-126) U/L Total Protein (6.3-8.2) g/dL Albumin (3.5-5.0) g/dL Globulin (1.7-4.1) g/dL Albumin/Globulin Ratio (1.0-2.8) Procalcitonin (<0.5) ng/mL Urine RBC 1-5/hpf (0-5/HPF) Urine WBC 1-5/hpf (0-5/HPF) Ur Squamous Epith Cells 1-5 /hpf (0-5/HPF) Urine Bacteria Few (2-10) H (None) Ur Culture Indicated? Specimen cultured Chlamy pneumoniae PCR Not detected (Not Detect) Adenovirus (PCR) Not detected (Not Detect) B. pertussis DNA (PCR) Not detected (Not Detecte) B.parapertussis DNA PCR Not detected (Not Detecte) Coronavirus OC43 (PCR) Not detected (Not Detect) Coronavirus HKU1 (PCR) Not detected (Not Detect) Coronavirus 229E (PCR) Not detected (Not Detect) SARS-CoV-2 (PCR) Not detected (Not Detecte) Coronavirus NL63 (PCR) Not detected (Not Detect) Human Metapneumovir PCR Not detected (Not Detect) Influenza Type A (PCR) Not detected (Not Detect) Influenza Type B (PCR) Not detected (Not Detect) M. pneumoniae (PCR) Not detected (Not Detect) Parainfluenza 1 (PCR) Not detected (Not Detect) Parainfluenza 2 (PCR) Not detected (Not Detect) Parainfluenza 3 (PCR) Not detected (Not Detect) Parainfluenza 4 (PCR) Not detected (Not Detect) RSV (PCR) Not detected (Not Detect) Entero/Rhino (PCR) Not detected (Not Detect) 02/09/22 02/09/22 02/09/22 Range/Units 18:50 18:50 18:50 WBC (4.5-11.0) X10^3/uL RBC (4.0-5.2) X10^6/uL Hgb (12.0-16.0) g/dL Hct (36-46) % MCV (80-100) fL MCH (26-34) PG MCHC (30-36) % RDW (11.6-14.8) % Plt Count (150-400) X10^3/uL Neut % (Auto) (50-75) % Lymph % (Auto) (25-40) % [place] % (Auto) (3-14) % Eos % (Auto) (2-4) % Baso % (Auto) (0-2) % Neut # (Auto) (7119-0508) /uL Lymph # (Auto) (8279-6809) /uL [place] # (Auto) (0-900) /uL Eos # (Auto) (0-450) /uL Baso # (Auto) (0-100) /uL Sodium 132 L (137-145) mmol/L Potassium 3.5 (3.4-5.1) mmol/L Chloride 101 (98-107) mmol/L Carbon Dioxide 21 L (22-32) mmol/L BUN 6 L (7-17) mg/dL Creatinine 0.65 (0.52-1.04) mg/dL Estimated GFR > 60 (>60) mL/min BUN/Creatinine Ratio 9.2 (6-22) Glucose 90 (70-100) mg/dL Lactate 1.0 (0.7-2.1) mmol/L Uric Acid (2.5-6.2) mg/dL Calcium 8.6 (8.4-10.2) mg/dL Total Bilirubin 0.2 (0.2-1.3) mg/dL AST 22 (14-36) IU/L ALT 15 (<35) IU/L Alkaline Phosphatase 101 (38-126) U/L Total Protein 7.8 (6.3-8.2) g/dL Albumin 4.0 (3.5-5.0) g/dL Globulin 3.8 (1.7-4.1) g/dL Albumin/Globulin Ratio 1.1 (1.0-2.8) Procalcitonin 3.15 H (<0.5) ng/mL Urine RBC (0-5/HPF) Urine WBC (0-5/HPF) Ur Squamous Epith Cells (0-5/HPF) Urine Bacteria (None) Ur Culture Indicated? Chlamy pneumoniae PCR (Not Detect) Adenovirus (PCR) (Not Detect) B. pertussis DNA (PCR) (Not Detecte) B.parapertussis DNA PCR (Not Detecte) Coronavirus OC43 (PCR) (Not Detect) Coronavirus HKU1 (PCR) (Not Detect) Coronavirus 229E (PCR) (Not Detect) SARS-CoV-2 (PCR) (Not Detecte) Coronavirus NL63 (PCR) (Not Detect) Human Metapneumovir PCR (Not Detect) Influenza Type A (PCR) (Not Detect) Influenza Type B (PCR) (Not Detect) M. pneumoniae (PCR) (Not Detect) Parainfluenza 1 (PCR) (Not Detect) Parainfluenza 2 (PCR) (Not Detect) Parainfluenza 3 (PCR) (Not Detect) Parainfluenza 4 (PCR) (Not Detect) RSV (PCR) (Not Detect) Entero/Rhino (PCR) (Not Detect) 02/09/22 Range/Units 18:50 WBC (4.5-11.0) X10^3/uL RBC (4.0-5.2) X10^6/uL Hgb (12.0-16.0) g/dL Hct (36-46) % MCV (80-100) fL MCH (26-34) PG MCHC (30-36) % RDW (11.6-14.8) % Plt Count (150-400) X10^3/uL Neut % (Auto) (50-75) % Lymph % (Auto) (25-40) % [place] % (Auto) (3-14) % Eos % (Auto) (2-4) % Baso % (Auto) (0-2) % Neut # (Auto) (2352-3513) /uL Lymph # (Auto) (9887-2393) /uL [place] # (Auto) (0-900) /uL Eos # (Auto) (0-450) /uL Baso # (Auto) (0-100) /uL Sodium (137-145) mmol/L Potassium (3.4-5.1) mmol/L Chloride (98-107) mmol/L Carbon Dioxide (22-32) mmol/L BUN (7-17) mg/dL Creatinine (0.52-1.04) mg/dL Estimated GFR (>60) mL/min BUN/Creatinine Ratio (6-22) Glucose (70-100) mg/dL Lactate (0.7-2.1) mmol/L Uric Acid 3.5 (2.5-6.2) mg/dL Calcium (8.4-10.2) mg/dL Total Bilirubin (0.2-1.3) mg/dL AST (14-36) IU/L ALT (<35) IU/L Alkaline Phosphatase (38-126) U/L Total Protein (6.3-8.2) g/dL Albumin (3.5-5.0) g/dL Globulin (1.7-4.1) g/dL Albumin/Globulin Ratio (1.0-2.8) Procalcitonin (<0.5) ng/mL Urine RBC (0-5/HPF) Urine WBC (0-5/HPF) Ur Squamous Epith Cells (0-5/HPF) Urine Bacteria (None) Ur Culture Indicated? Chlamy pneumoniae PCR (Not Detect) Adenovirus (PCR) (Not Detect) B. pertussis DNA (PCR) (Not Detecte) B.parapertussis DNA PCR (Not Detecte) Coronavirus OC43 (PCR) (Not Detect) Coronavirus HKU1 (PCR) (Not Detect) Coronavirus 229E (PCR) (Not Detect) SARS-CoV-2 (PCR) (Not Detecte) Coronavirus NL63 (PCR) (Not Detect) Human Metapneumovir PCR (Not Detect) Influenza Type A (PCR) (Not Detect) Influenza Type B (PCR) (Not Detect) M. pneumoniae (PCR) (Not Detect) Parainfluenza 1 (PCR) (Not Detect) Parainfluenza 2 (PCR) (Not Detect) Parainfluenza 3 (PCR) (Not Detect) Parainfluenza 4 (PCR) (Not Detect) RSV (PCR) (Not Detect) Entero/Rhino (PCR) (Not Detect) Point of Care Testing Test Results Positive Rapid Strep A Negative Urine Dip Bedside Urine Glucose Negative Bedside Urine Bilirubin - Negative Bedside Urine Ketone - Negative Urine Specific [place] 1.015 Bedside Urine Occult Blood ++ Bedside Urine pH 7.0 Bedside Urine Protein - Negative Bedside Urine Urobilinogen - Negative Bedside Urine Nitrite - Negative Bedside Urine Leukocytes - Negative Esterase Discharge Plan Departure Patient Disposition: Admitted as Observation Clinical Impression: Syncope, vasovagal Sepsis Qualifiers: Sepsis type: sepsis due to unspecified organism Sepsis acute organ dysfunction status: with acute organ dysfunction Severe sepsis acute organ dysfunction type: unspecified Severe sepsis shock status: without septic shock Qualified Code(s): A41.9 - Sepsis, unspecified organism Fever Qualifiers: Fever type: unspecified Qualified Code(s): R50.9 - Fever, unspecified Admit Date/Time: 02/09/22 21:10 Admit Provider: Sienna Malin
[2022-02-09 19:06] LABS: RBC Urine 1-5/HPF (0-5/HPF); WBC Urine 1-5/HPF (0-5/HPF)
[2022-02-09 19:07] LABS: Bacteria Urine Few (2-10); Culture Indicated Urine Specimen Cultured; Squamous Epithelial Cell Urine 1-5 /HPF (0-5/HPF)
[2022-02-09] MEDS: ACETAMINOPHEN 325 MG TABLET 975 MG PO (19:14)
[2022-02-09] MEDS: SODIUM CHLORIDE 0.9% 1,000 ML 1000 ML IV ×2 (19:22→23:43)
[2022-02-09 19:24] LABS: Add Manual Diff / Slide Review NO; Basophils Absolute Auto 0 /uL (0-100); Basophils Percent Auto 0.1 % (0-2); Eosinophils Absolute Auto 0 /uL (0-450); Hematocrit 29.2 % (36-46); Hemoglobin 9.8 g/dL (12.0-16.0); Lymphocytes Absolute Auto 1400 /uL (1100-4500); Mean Corpuscular HGB Conc 33.4 % (30-36); Mean Corpuscular Hemoglobin 28.4 PG (26-34); Mean Corpuscular Volume 85.2 fL (80-100); Monocytes Absolute Auto 1000 /uL (0-900); Neutrophils Absolute Auto 17000 /uL (1500-7000); Neutrophils Percent Auto 87.9 % (50-75); Platelet Count 379 X10^3/uL (150-400); Red Blood Cell Count 3.43 X10^6/uL (4.0-5.2); Red Cell Distribution Width 13.2 % (11.6-14.8); White Blood Cell Count 19.3 X10^3/uL (4.5-11.0)
[2022-02-09 19:36] LABS: Alanine Aminotransferase 15 IU/L (<35); Albumin Globulin Ratio 1.1 (1.0-2.8); Alkaline Phosphatase 101 U/L (38-126); Aspartate Aminotransferase 22 IU/L (14-36); BUN Creatinine Ratio 9.2 (6-22); Bilirubin Total 0.2 mg/dL (0.2-1.3); Blood Urea Nitrogen 6 mg/dL (7-17); Calcium 8.6 mg/dL (8.4-10.2); Carbon Dioxide 21 mmol/L (22-32); Chloride 101 mmol/L (98-107); Estimated Glomerular Filt Rate > 60 mL/min (>60); Globulin 3.8 g/dL (1.7-4.1); Glucose 90 mg/dL (70-100); HEMOLYSIS < 15 (0-50); Potassium 3.5 mmol/L (3.4-5.1); Sodium 132 mmol/L (137-145); Total Protein 7.8 g/dL (6.3-8.2)
[2022-02-09] MEDS: LACTATED RINGERS 1,000 ML 1000 ML IV (19:46)
[2022-02-09 20:21] LABS: Uric Acid 3.5 mg/dL (2.5-6.2)
[2022-02-09 20:23] LABS: Procalcitonin 3.15 ng/mL (<0.5)
[2022-02-09 20:27] LABS: Adenovirus Not Detected (Not Detect); B. parapertussis Not Detected (Not Detecte); Bordetella pertussis Not Detected (Not Detecte); Chlamydophila pneumoniae Not Detected (Not Detect); Coronavirus 229E Not Detected (Not Detect); Coronavirus HKU1 Not Detected (Not Detect); Coronavirus NL 63 Not Detected (Not Detect); Coronavirus OC43 Not Detected (Not Detect); Human Metapneumovirus Not Detected (Not Detect); Human Rhinovirus/Enterovirus Not Detected (Not Detect); Influenza A Not Detected (Not Detect); Influenza B Not Detected (Not Detect); Mycoplasma pneumoniae Not Detected (Not Detect); Parainfluenza Virus 1 Not Detected (Not Detect); Parainfluenza Virus 2 Not Detected (Not Detect); Parainfluenza Virus 3 Not Detected (Not Detect); Parainfluenza Virus 4 Not Detected (Not Detect); Respiratory Syncytial Virus Not Detected (Not Detect); SARS- CoV-2 Not Detected (Not Detecte)
[2022-02-09 20:43] VITALS: TEMP 37
[2022-02-09 21:21] VITALS: BP 106/60; PULSE 110; RESP 20; O2SAT 99
[2022-02-09 21:28] LABS: Appearance Urine UA CLEAR; Bilirubin Urine UA NEGATIVE (NEGATIVE); Glucose Urine UA NEGATIVE (Negative); Ketones Urine UA 1+ (NEGATIVE); Leukocyte Esterase Urine UA NEGATIVE (NEGATIVE); Nitrite Urine UA NEGATIVE (Negative); Occult Blood Urine UA 1+ (Negative); Protein Urine UA NEGATIVE (Negative); Specific Gravity Urine UA <=1.005 (1.000-1.035); Urobilinogen Urine UA 0.2 E.U./dL (0.2)
[2022-02-09] MEDS: cefTRIAXone 1,000 MG in SODIUM CHLORIDE 0.9% 100 ML 200 MG IV (21:28)
[2022-02-09 21:31] LABS: Color Urine UA Straw
[2022-02-09 21:35] LABS: RBC Urine 0-1/HPF (0-5/HPF); WBC Urine None Seen (0-5/HPF)
[2022-02-09 21:36] LABS: Bacteria Urine Few (2-10); Culture Indicated Urine Cult Not Indicated; Squamous Epithelial Cell Urine 1-5 /HPF (0-5/HPF)
[2022-02-09 21:56] VITALS: TEMP 37
--- NOTE | 2022-02-09 22:17 | PC.NURSE ---
pt able to get to bedside commode chair denies any dizziness or lightheadness
[2022-02-09 22:20] VITALS: BP 92/54; PULSE 115; RESP 20; O2SAT 100
--- NOTE | 2022-02-09 23:15 | PC.NURSE ---
LBlayne Sanchez RN here to do NST
[2022-02-09 23:49] VITALS: BMI 26.6
[2022-02-10] VITALS (8 sets, daily range): BP systolic 100–136; BP diastolic 60–67; PULSE 87–116; RESP 18–107; TEMP 36.4–37.9; O2SAT 98–100
[2022-02-10] MEDS: ACETAMINOPHEN 325 MG TABLET 650 MG PO ×4 (00:08→17:03)
[2022-02-10] MEDS: SODIUM CHLORIDE 0.9% 1,000 ML 100 ML IV ×2 (00:49→13:42)
[2022-02-10] MEDS: HYDROCODONE/ACET 5/325 TABLET 1 TAB PO ×2 (04:45→20:39)
[2022-02-10] MEDS: SODIUM CHLORIDE 0.9% 1,000 ML 1000 ML IV (04:50)
[2022-02-10 04:59] LABS: Add Manual Diff / Slide Review NO; Basophils Absolute Auto 100 /uL (0-100); Basophils Percent Auto 0.4 % (0-2); Eosinophils Absolute Auto 0 /uL (0-450); Hematocrit 26.4 % (36-46); Hemoglobin 8.9 g/dL (12.0-16.0); Lymphocytes Absolute Auto 2300 /uL (1100-4500); Lymphocytes Percent Auto 11.1 % (25-40); Mean Corpuscular HGB Conc 33.7 % (30-36); Mean Corpuscular Hemoglobin 28.8 PG (26-34); Mean Corpuscular Volume 85.4 fL (80-100); Monocytes Absolute Auto 1500 /uL (0-900); Monocytes Percent Auto 7.2 % (3-14); Neutrophils Absolute Auto 16800 /uL (1500-7000); Neutrophils Percent Auto 81.3 % (50-75); Platelet Count 331 X10^3/uL (150-400); Red Cell Distribution Width 13.2 % (11.6-14.8); White Blood Cell Count 20.7 X10^3/uL (4.5-11.0)
[2022-02-10 05:03] LABS: Alanine Aminotransferase 13 IU/L (<35); Albumin 3.3 g/dL (3.5-5.0); Alkaline Phosphatase 87 U/L (38-126); Aspartate Aminotransferase 19 IU/L (14-36); BUN Creatinine Ratio 5.4 (6-22); Bilirubin Total 0.1 mg/dL (0.2-1.3); Blood Urea Nitrogen 3 mg/dL (7-17); Calcium 7.6 mg/dL (8.4-10.2); Carbon Dioxide 19 mmol/L (22-32); Chloride 108 mmol/L (98-107); Estimated Glomerular Filt Rate > 60 mL/min (>60); Globulin 3.3 g/dL (1.7-4.1); Glucose 86 mg/dL (70-100); HEMOLYSIS < 15 (0-50); Potassium 3.2 mmol/L (3.4-5.1); Sodium 134 mmol/L (137-145); Total Protein 6.6 g/dL (6.3-8.2)
--- NOTE | 2022-02-10 07:03 | PC.NURSE ---
Late entry, on 02/09 around 1800 pt got up to ambulate to the bathroom. When pt got out of bathroom, INDUSTRIAL MACHINERY MECHANIC witnessed pt fall to ground. Pt was immediately assessed by MD and was assisted to a stretcher. Vital signs, heart tones, and EKG were performed. Pt states the last thing she remembers before falling was getting up from the bathroom. She states she does not remember standing in the [place] and falling.
--- NOTE | 2022-02-10 07:04 | PC.NURSE ---
Admit/Night Note-Patient brought to room 228 via SAGAR, Myauri/Ox4, with her. Initial temp 100.3 upon admit, HR 120, BP 136/67. C/O sore throat which is slightly edematous and erythemic. Tolerating liquids and soft foods. 2 liters of NS given since admit, voided 1200ml clear urine. Able to ambulate into BR without dizziness. Scheduled Tylenol ordered, order for [place] obtained from Dr Raymundo.
[2022-02-10] MEDS: FISH OIL 1,000 MG CAPSULE 1000 MG PO (08:12)
[2022-02-10] MEDS: FERROUS SULFATE 325 MG TABLET PO (08:12)
--- NOTE | 2022-02-10 08:37 | DI.RAD.S_ITS ---
PROCEDURE: XR CHEST 1V INDICATIONS: Chest pain TECHNIQUE: One view of the chest was acquired. COMPARISON: [facility], CR, XR CHEST 1V, 05/25/2021, 14:25. FINDINGS: Surgical changes and devices: None. Lungs and pleura: Lungs are clear. No pleural effusions or pneumothorax. Mediastinum: Mediastinal contours appear normal. Heart size is normal. Bones and chest wall: No suspicious bony lesions. Overlying soft tissues appear unremarkable. IMPRESSION: No acute cardiopulmonary process demonstrated radiographically. Dictated by: Sebastian Alfred M.D. on 02/10/2022 at 9:25 Approved by: Sebastian Alfred M.D. on 02/10/2022 at 9:27
--- NOTE | 2022-02-10 08:48 | PM.CN ---
History of Present Illness Consult details Date Patient Seen: 02/10/22 Time Patient Seen: 08:00 Chief complaint: fever, w/v x1 day Narrative: Annie Oneal is a 21-year-old female who is 7 months and history of frequent strep throat was presenting to the ED with a fever of 106, sore throat, congestion, nausea and vomiting. Patient states she developed worsening fevers, sore throat, congestion and over the past 2 days. Found to have fever 101.6F in ED, WBC 20 and tachycardiac at 120. Admitted for sepsis without known source. Medicine consulted after patient reported chest pain. She says the pain is worse with deep breaths and feels like she has mucus in her chest that I can't cough out. Also hurts with palpation of the chest. No worsening CP with exertion. Stat ECG was largely unremarkable. Initial troponin negative at 0.034 then increased to 0.086. Cardiology was called who recommended trending trops, getting an echo, checking CRP/ESR to look for potential myocarditis vs pericarditis. Meds Home Medications and Allergies Home Medications Medication Instructions Recorded Confirmed Type DPP41-XH 400 mcg-om3 35 mg-dha 25 1 tab PO DAILY 09/16/21 02/10/22 History mg-epa 5 mg-fish oil chewable tablet multivitamin 1 tab PO DAILY 09/16/21 02/10/22 History albuterol sulfate 90 mcg/actuation See Rx Instructions .Route 11/24/21 02/10/22 Rx aerosol inhaler .COMPLEX #20.1 grams ferrous gluconate 324 mg (37.5 mg 324 mg PO DAILY 01/05/22 02/10/22 History iron) tablet Allergies Allergy/AdvReac Type Severity Reaction Status Date / Time drospirenone AdvReac Severe Vomiting Verified 01/20/22 10:34 Review of Systems Review of Systems Narrative: All other systems reviewed with the patient and are negative unless otherwise stated. Exam Vital Signs (past 8 hours): - 02/10/22 04:45 02/10/22 04:00 02/10/22 07:58 Temperature 99.8 F H 99.8 F H 97.6 F Pulse Rate 107 H Respiratory Rate 107 H Blood Pressure 111/63 Pulse Oximetry 100 Oxygen Delivery Method Room Air Narrative Exam Narrative: GEN: no acute distress, ill-appearing HEENT: moist mucous membranes, PERRL, bilateral non erythematous tympanic membranes NECK: trachea midline, no JVD, mild posterior neck tenderness CV: regular rate and rhythm, no murmurs, tenderness to palpation of sternum PULM: clear bilaterally ABD: soft, nontender, nondistended, no organomegaly EXT: warm and well perfused with no edema NEURO: awake, alert, oriented, no focal deficits Objective Labs Result Diagrams: 02/10/22 12:58 02/10/22 03:58 Labs: Laboratory Results - last 24 hr 02/09/22 02/09/22 02/09/22 18:20 18:30 18:50 WBC 19.3 H RBC 3.43 L Hgb 9.8 L Hct 29.2 L MCV 85.2 MCH 28.4 MCHC 33.4 RDW 13.2 Plt Count 379 Neut % (Auto) 87.9 H Lymph % (Auto) 7.0 L Gray % (Auto) 5.0 Eos % (Auto) 0.0 L Baso % (Auto) 0.1 Neut # (Auto) 98635 H Lymph # (Auto) 1400 Gray # (Auto) 1000 H Eos # (Auto) 0 Baso # (Auto) 0 Sodium Potassium Chloride Carbon Dioxide BUN Creatinine Estimated GFR BUN/Creatinine Ratio Glucose Lactate Uric Acid Calcium Total Bilirubin AST ALT Alkaline Phosphatase Total Protein Albumin Globulin Albumin/Globulin Ratio Procalcitonin Urine Color Urine Appearance Urine pH Ur Specific [place] Urine Protein Urine Glucose (UA) Urine Ketones Urine Occult Blood Urine Nitrate Urine Bilirubin Urine Urobilinogen Ur Leukocyte Esterase Urine RBC 1-5/hpf Urine WBC 1-5/hpf Ur Squamous Epith Cells 1-5 /hpf Urine Bacteria Few (2-10) H Ur Culture Indicated? Specimen cultured Nasal Screen MRSA (PCR) Chlamy pneumoniae PCR Not detected Adenovirus (PCR) Not detected B. pertussis DNA (PCR) Not detected B.parapertussis DNA PCR Not detected Coronavirus OC43 (PCR) Not detected Coronavirus HKU1 (PCR) Not detected Coronavirus 229E (PCR) Not detected SARS-CoV-2 (PCR) Not detected Coronavirus NL63 (PCR) Not detected Human Metapneumovir PCR Not detected Influenza Type A (PCR) Not detected Influenza Type B (PCR) Not detected M. pneumoniae (PCR) Not detected Parainfluenza 1 (PCR) Not detected Parainfluenza 2 (PCR) Not detected Parainfluenza 3 (PCR) Not detected Parainfluenza 4 (PCR) Not detected RSV (PCR) Not detected Entero/Rhino (PCR) Not detected 02/09/22 02/09/22 02/09/22 18:50 18:50 18:50 WBC RBC Hgb Hct MCV MCH MCHC RDW Plt Count Neut % (Auto) Lymph % (Auto) [place] % (Auto) Eos % (Auto) Baso % (Auto) Neut # (Auto) Lymph # (Auto) [place] # (Auto) Eos # (Auto) Baso # (Auto) Sodium 132 L Potassium 3.5 Chloride 101 Carbon Dioxide 21 L BUN 6 L Creatinine 0.65 Estimated GFR > 60 BUN/Creatinine Ratio 9.2 Glucose 90 Lactate 1.0 Uric Acid Calcium 8.6 Total Bilirubin 0.2 AST 22 ALT 15 Alkaline Phosphatase 101 Total Protein 7.8 Albumin 4.0 Globulin 3.8 Albumin/Globulin Ratio 1.1 Procalcitonin 3.15 H Urine Color Urine Appearance Urine pH Ur Specific [place] Urine Protein Urine Glucose (UA) Urine Ketones Urine Occult Blood Urine Nitrate Urine Bilirubin Urine Urobilinogen Ur Leukocyte Esterase Urine RBC Urine WBC Ur Squamous Epith Cells Urine Bacteria Ur Culture Indicated? Nasal Screen MRSA (PCR) Chlamy pneumoniae PCR Adenovirus (PCR) B. pertussis DNA (PCR) B.parapertussis DNA PCR Coronavirus OC43 (PCR) Coronavirus HKU1 (PCR) Coronavirus 229E (PCR) SARS-CoV-2 (PCR) Coronavirus NL63 (PCR) Human Metapneumovir PCR Influenza Type A (PCR) Influenza Type B (PCR) M. pneumoniae (PCR) Parainfluenza 1 (PCR) Parainfluenza 2 (PCR) Parainfluenza 3 (PCR) Parainfluenza 4 (PCR) RSV (PCR) Entero/Rhino (PCR) 02/09/22 02/09/22 02/10/22 18:50 21:13 00:00 WBC RBC Hgb Hct MCV MCH MCHC RDW Plt Count Neut % (Auto) Lymph % (Auto) [place] % (Auto) Eos % (Auto) Baso % (Auto) Neut # (Auto) Lymph # (Auto) [place] # (Auto) Eos # (Auto) Baso # (Auto) Sodium Potassium Chloride Carbon Dioxide BUN Creatinine Estimated GFR BUN/Creatinine Ratio Glucose Lactate Uric Acid 3.5 Calcium Total Bilirubin AST ALT Alkaline Phosphatase Total Protein Albumin Globulin Albumin/Globulin Ratio Procalcitonin Urine Color Straw Urine Appearance Clear Urine pH 7.0 Ur Specific [place] <=1.005 Urine Protein Negative Urine Glucose (UA) Negative Urine Ketones 1+ H Urine Occult Blood 1+ H Urine Nitrate Negative Urine Bilirubin Negative Urine Urobilinogen 0.2 Ur Leukocyte Esterase Negative Urine RBC 0-1/hpf Urine WBC None seen Ur Squamous Epith Cells 1-5 /hpf Urine Bacteria Few (2-10) H Ur Culture Indicated? Cult not indicated Nasal Screen MRSA (PCR) Negative for mrsa Chlamy pneumoniae PCR Adenovirus (PCR) B. pertussis DNA (PCR) B.parapertussis DNA PCR Coronavirus OC43 (PCR) Coronavirus HKU1 (PCR) Coronavirus 229E (PCR) SARS-CoV-2 (PCR) Coronavirus NL63 (PCR) Human Metapneumovir PCR Influenza Type A (PCR) Influenza Type B (PCR) M. pneumoniae (PCR) Parainfluenza 1 (PCR) Parainfluenza 2 (PCR) Parainfluenza 3 (PCR) Parainfluenza 4 (PCR) RSV (PCR) Entero/Rhino (PCR) 02/10/22 02/10/22 03:58 03:58 WBC 20.7 H RBC 3.10 L Hgb 8.9 L Hct 26.4 L MCV 85.4 MCH 28.8 MCHC 33.7 RDW 13.2 Plt Count 331 Neut % (Auto) 81.3 H Lymph % (Auto) 11.1 L [place] % (Auto) 7.2 Eos % (Auto) 0.0 L Baso % (Auto) 0.4 Neut # (Auto) 17065 H Lymph # (Auto) 2300 [place] # (Auto) 1500 H Eos # (Auto) 0 Baso # (Auto) 100 Sodium 134 L Potassium 3.2 L Chloride 108 H Carbon Dioxide 19 L BUN 3 L Creatinine 0.56 Estimated GFR > 60 BUN/Creatinine Ratio 5.4 L Glucose 86 Lactate Uric Acid Calcium 7.6 L Total Bilirubin 0.1 L AST 19 ALT 13 Alkaline Phosphatase 87 Total Protein 6.6 Albumin 3.3 L Globulin 3.3 Albumin/Globulin Ratio 1.0 Procalcitonin Urine Color Urine Appearance Urine pH Ur Specific [place] Urine Protein Urine Glucose (UA) Urine Ketones Urine Occult Blood Urine Nitrate Urine Bilirubin Urine Urobilinogen Ur Leukocyte Esterase Urine RBC Urine WBC Ur Squamous Epith Cells Urine Bacteria Ur Culture Indicated? Nasal Screen MRSA (PCR) Chlamy pneumoniae PCR Adenovirus (PCR) B. pertussis DNA (PCR) B.parapertussis DNA PCR Coronavirus OC43 (PCR) Coronavirus HKU1 (PCR) Coronavirus 229E (PCR) SARS-CoV-2 (PCR) Coronavirus NL63 (PCR) Human Metapneumovir PCR Influenza Type A (PCR) Influenza Type B (PCR) M. pneumoniae (PCR) Parainfluenza 1 (PCR) Parainfluenza 2 (PCR) Parainfluenza 3 (PCR) Parainfluenza 4 (PCR) RSV (PCR) Entero/Rhino (PCR) [facility] Medical History Arachnoid cyst of posterior cranial fossa control counseling Body posture problem Cervical somatic dysfunction Chronic left-sided thoracic back pain Concussion Cranial somatic dysfunction History of traumatic brain injury Mastoid pain Observed seizure-like activity Pelvic somatic dysfunction Sacral region somatic dysfunction Segmental and somatic dysfunction of abdomen and other regions Syncope and collapse Thoracic region somatic dysfunction Vasovagal attack Surgical History [place] teeth extracted Family History Mother Graves disease Hidradenitis suppurativa Grandfather Colon cancer Grandmother Alcoholism Social History marital status: household members: spouse lives independently: Yes housing: house pets and animals: Yes (2 dogs and 1 cat; will wear gloves and mask when changing litter box) education level: college (some college) occupational status: employed current occupational exposures/hazards: No special adan needs: No Safety seatbelt use: always water heater temp set < 120 deg: Yes working smoke detector in home: Yes fire extinguisher in home: Yes carbon monox detector in home: Yes firearms in home: Yes do you feel safe at home: Yes Tobacco & Substance Use Smoking Status: Never smoker second hand exposure: No alcohol intake: former substance use type: marijuana (Used prior to learning she was ) Diet and Exercise during the past year weight has: increased > 10 lbs well-balanced diet: about half the time daily servings fruits/ve-4 caffeine: No Type(s) of exercise: walking Assessment & Plan Assessment & Plan narrative: # acute chest pain with concern for possible NSTEMI versus mild carditis/pericarditis -chest pain appears to be reproducible on exam and related to breathing and position -EKG reassuring, ultrasound of neck showed no evidence of Lemeirre's disease -echocardiogram reassuring with EF 55-60% and no wall motion abnormalities -at 6:00 p.m. troponin juan carlos from 0.086 to 0.769 -scheduled cardiology called who recommended transfer for higher level of care, most likely diagnosis pericarditis so recommended starting indomethacin. Less likely ACS and no indication for heparin drip at this time. -start indomethacin 50 mg every 8 hours -repeat EKG -repeat troponin every 4 hours # acute sepsis -presented with fevers, tachycardia leukocytosis -likely viral URI given cough, congestion, sore throat. Respiratory PCR negative. -WBC 20 down trended to 16 -chest x-ray normal, UA negative, blood cultures pending -continue zosyn which is safe in # anemia of -OBGYN ordered iron infusion # currently 7 months - monitoring reassuring per freight car repairer who is following this patient Code status is full code. COVID negative. DVT prophylaxis with SCDs. Proxy is Jaydon. I have reviewed home meds and used all available resources to reconcile the home meds. Time Spent With Patient Critical Care time: I spent a total of [] minutes of critical care time on this patient's care today; this time is exclusive of procedural time.
[2022-02-10] MEDS: PIPERACILLIN/TAZO 3.375 GM in SODIUM CHLORIDE 0.9% 100 ML IV ×2 (09:07→17:04)
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
[2022-02-10] MEDS: POTASSIUM CHLORIDE 20 MEQ TAB 40 MEQ PO (09:38)
--- NOTE | 2022-02-10 09:41 | DI.US.S_ITS ---
PROCEDURE: US SOFT TISSUE HEAD AND NECK INDICATIONS: HIGH FEVER. . RULE OUT LEMEIRRE'S SYNDROME TECHNIQUE: Real-time scanning was performed of the neck region of interest, with image documentation. COMPARISON: [facility], CT, CT CERVICAL SPINE WITHOUT CONTRAST, 08/25/2021, 17:33. FINDINGS: Ultrasound of the neck was obtained. The right and left internal jugular veins are patent and compressible without intraluminal filling defect to suggest DVT. Common carotid arteries are patent bilaterally. There are mildly enlarged cervical lymph nodes bilaterally measuring up to 8.3 mm in short axis on the right and 8.2 cm in short axis on the left. The lymph nodes demonstrate mildly increased internal vascularity. IMPRESSION: 1. No findings to suggest linear syndrome. If clinical suspicion is high, CT contrast is recommended. 2. Prominent cervical lymph nodes bilaterally with increased vascularity, most likely reactive. Recommend clinical follow-up to ensure resolution. Dictated by: Shwetha Crane M.D. on 02/10/2022 at 11:35 Approved by: Shwetha Crane M.D. on 02/10/2022 at 11:39
[2022-02-10 10:02] LABS: Troponin I 0.035 ng/mL (0.01-0.034)
--- NOTE | 2022-02-10 10:46 | PC.NURSE ---
~0815 pt c/o new onset chest pain, sharp and escalating in severity. Dr. Alejandre notified. STAT EKG, Trop, and consult to hospitalist made.
[2022-02-10] MEDS: PHENOL LIQUID 100 SPRAYS/BOTTLE SPRAY MM (12:12)
[2022-02-10] MEDS: OXYMETAZOLINE NASAL SPRAY 15 ML 2 SPRAYS NASAL (12:14)
[2022-02-10 12:57] LABS: Troponin I 0.086 ng/mL (0.01-0.034)
--- NOTE | 2022-02-10 13:28 | DI.ECHO.S_ITS ---
[place] [facility]---------+ [facility] +---------+ : : [address] : : : : [id number] : : : : Phone: [phone]+ Echocardiogram Report + + :Name: IRAM CONTRERAS Study Date: 02/10/2022 Height: 69 in : :[facility] ReadingLocation: Weight: 180 lb : : Gender: Female BSA: 2.0 m2 : :: 2000 Age: 21 yrs BP: 103/61 mmHg: :Reason For Study: CHEST PAIN, , ELEVATED TROPONIN : :Ordering Physician: GUERDA العلي : :Mayuri Chambers Performed By: Trudy Knight : :Referring: GUERDA العلي D.O. : + + Interpretation Summary The left ventricle is normal in size and wall thickness. Left ventricular systolic function appears normal without focal wall motion abnormalities. The ejection fraction is estimated to be 55-60%. Diastolic parameters suggest probable normal left ventricular diastolic function and normal filling pressures. The right ventricle is normal in size and function. The right ventricular systolic pressure is estimated to be at least 24 mmHg based on an estimated right atrial pressure of 3 mm Hg. The left atrium is mildly dilated. Right atrial size is normal. Doppler interrogation and injection of saline echo contrast shows no evidence for an interatrial shunt. There is mild mitral regurgitation. There is mild to moderate tricuspid regurgitation. There is no other significant valvular heart disease. The aortic root is normal size. Procedure: A two-dimensional transthoracic echocardiogram with color flow and Doppler was performed. The study quality was technically adequate. There is no prior echocardiogram noted for this patient. A saline contrast injection was performed to assess for cardiac shunting. The injection was performed through an intravenous line in the right arm. The patient was in sinus rhythm with heart rates between 84-97 bpm during the exam. Left Ventricle: The left ventricle is normal in size and wall thickness. Left ventricular systolic function appears normal without focal wall motion abnormalities. The ejection fraction is estimated to be 55-60%. Diastolic parameters suggest probable normal left ventricular diastolic function and normal filling pressures. Right Ventricle: The right ventricle is normal in size and function. Atria: The left atrium is mildly dilated. Right atrial size is normal. Doppler interrogation and injection of saline echo contrast shows no evidence for an interatrial shunt. Mitral Valve: The mitral valve is normal in structure and function. There is mild mitral regurgitation. Aortic Valve: The aortic valve is trileaflet. The aortic valve opens well. There is no aortic valve stenosis. No aortic regurgitation is present. Tricuspid Valve: The tricuspid valve leaflets are thin and pliable. There is mild to moderate tricuspid regurgitation. The right ventricular systolic pressure is estimated to be at least 24 mmHg based on an estimated right atrial pressure of 3 mm Hg. Pulmonic Valve: The pulmonic valve leaflets are thin and pliable; valve motion is normal. There is no pulmonic valvular regurgitation. There is no other significant valvular heart disease. Great Vessels: The aortic root is normal size. The dimensions of the ascending aorta are normal. The IVC is of normal diameter and collapses greater than 50% with a sniff. This suggests a low right atrial pressure of 3 mm Hg. Pericardium/ Pleura There is no pericardial effusion. There is no pleural effusion. MMode/2D Measurements & Calculations LVIDd: 5.1 cm LVOT diam: 2.0 cm LVIDs: 3.5 cm Ao root diam: 2.7 cm FS: 30.5 % asc Aorta Diam: 3.0 cm EPSS: 0.53 cm Ao Arch Diam (Prox Trans): 2.6 cm IVSd: 0.79 cm LVPWd: 1.0 cm LV hooker. diameter/BSA (cm/m^2): 2.6 LV sys. diameter/BSA (cm/m^2): 1.8 LA A2 area: 26.1 cm2 RA long axis: 5.4 cm LA A4 area: 20.5 cm2 RA area: 18.8 cm2 LA length (vol): 6.0 cm RA vol: 55.8 ml LA vol: 75.7 ml RA : 28.3 ml/m2 LA vol index: 38.3 ml/m2 IVC diam: 1.3 cm RVD1 (basal): 3.8 cm RVD2 (mid): 3.3 cm TAPSE: 2.3 cm Doppler Measurements & Calculations Ao V2 max: 151.4 cm/sec LVOT Max Andres: 106.4 cm/sec Ao V2 mean: 104.9 cm/sec LV V1 max P.5 mmHg Ao max P.2 mmHg LV V1 VTI: 22.2 cm Ao mean P.9 mmHg JADA(I,D): 2.5 cm2 Ao V2 VTI: 29.1 cm JADA(V,D): 2.3 cm2 sev ratio: 0.76 JADA indexed to BSA (cm^2/m^2): 1.3 MV E max andres: 107.4 cm/sec TR max andres: 229.2 cm/sec MV A max andres: 42.5 cm/sec TR max P.0 mmHg MV E/A: 2.5 PA V2 max: 96.9 cm/sec Med Peak E' Andres: 14.4 cm/sec PA V2 mean: 65.5 cm/sec E/E' med: 7.4 PA mean P.0 mmHg Lat Peak E' Andres: 16.0 cm/sec PA pr(Accel): 24.2 mmHg E/E' lat: 6.7 E/e' average: 7.1 MV dec time: 0.31 sec SV(LVOT): 73.0 ml Reading Physician:05:53 PM
[2022-02-10 13:55] LABS: Creatine Kinase 35 U/L (30-135)
[2022-02-10 14:14] LABS: Erythrocyte Sedimentation Rate 66 MM/HR (0-20)
--- NOTE | 2022-02-10 14:22 | CM.DANOTE ---
DCP Assessment: Payor: Meliza Ortiz PCP: Rayshawn Borges MD Pt is a 21 y.o. F admitted with fever. Pt on AC unit for further management of symptoms. Pt is 7 months . DCP attempted to talk with pt today but each time pt asleep. Unable to do full assessment but pt lives with her spouse in [place]. Pt independent at baseline. Pt is 7 months and planning to deliver at [facility]. P: Once pt medically stable for discharge, pt to discharge home via spouse POV. Anticipate no needs. DCP to follow up with pt tomorrow. Felisha Velarde RN/WALLACE Discharge Planning/Care Management CM Discharge Assessment Start: 02/10/22 14:22 Freq: Status: Active Protocol: Document 02/10/22 14:22 CRISTY (Rec: 02/10/22 14:22 [id number]) Discharge Planning Assessment Assigned Revenue Tax Specialist Felisha Velarde RN/WALLACE Advance Directives? No Advance Directives on File No History Provided By Patient Prior Living Arrangements House Household Members spouse Type of transporation used prior to Drives own vehicle admit Independent with ADL's Yes Is patient alert and oriented? Yes Discharge Plan Home Referrals Initiated None needed Review Status In Process Please Provide Date Initial DC 02/10/22 Assessment Was Performed Next Review Type Continued Stay Review
[2022-02-10 14:29] LABS: CKMB % Relative Index 0.7 % (1.5-5.0); Creatine Kinase MB 0.25 ng/mL (<2.37)
[2022-02-10 15:31] LABS: Add Manual Diff / Slide Review NO; Basophils Absolute Auto 100 /uL (0-100); Basophils Percent Auto 0.5 % (0-2); Eosinophils Absolute Auto 0 /uL (0-450); Eosinophils Percent Auto 0.1 % (2-4); Hematocrit 24.8 % (36-46); Hemoglobin 8.1 g/dL (12.0-16.0); Lymphocytes Absolute Auto 1800 /uL (1100-4500); Lymphocytes Percent Auto 10.9 % (25-40); Mean Corpuscular HGB Conc 32.6 % (30-36); Mean Corpuscular Hemoglobin 28.1 PG (26-34); Mean Corpuscular Volume 86.2 fL (80-100); Monocytes Absolute Auto 1300 /uL (0-900); Monocytes Percent Auto 7.7 % (3-14); Neutrophils Absolute Auto 13600 /uL (1500-7000); Neutrophils Percent Auto 80.8 % (50-75); Platelet Count 335 X10^3/uL (150-400); Red Blood Cell Count 2.87 X10^6/uL (4.0-5.2); Red Cell Distribution Width 13.2 % (11.6-14.8); White Blood Cell Count 16.8 X10^3/uL (4.5-11.0)
--- NOTE | 2022-02-10 15:40 | PC.NURSE ---
This RN to patient's room to perform NST 15:02-15:26. Baseline: 135bpm, moderate variability, + accels, neg decels, no UCs, +FM per patient. NST paper strip left in chart for provider review. -Dipesh BROOKS
[2022-02-10] MEDS: guaiFENesin ER 600 MG TAB PO (17:04)
[2022-02-10 18:37] LABS: Creatine Kinase 57 U/L (30-135)
[2022-02-10 18:50] LABS: CKMB % Relative Index 4.7 % (1.5-5.0); Creatine Kinase MB 2.67 ng/mL (<2.37)
[2022-02-10 18:52] LABS: Troponin I 0.769 ng/mL (0.01-0.034)
--- NOTE | 2022-02-10 20:32 | P.PN_ITS ---
Subjective Subjective Date Patient Seen: 02/10/22 Time Patient Seen: 19:45 Interval history: Annie is stable She reports feeling worse symptoms is neck up, sore throat, achy towards her ears, nasal congestion. She also reports now a cough. she reports still having some chest discomfort but not as much. Feels it moreso as a pressure to cough and with inspiration, not as much with expiration. Not a constant chest discomfort. Denies feeling feverish, chills, shortness of breath, abdominal pain, leakage of fluid from the vagina, vaginal bleeding, cramping or contractions. Exam Vital Signs (past 8 hours): - 02/10/22 17:03 02/10/22 16:00 02/10/22 20:00 Temperature 97.7 F 98 F 97.9 F Pulse Rate 87 100 H Respiratory Rate 21 19 Blood Pressure 103/61 100/61 Pulse Oximetry 98 98 Oxygen Flow Rate 0 Oxygen Delivery Method Room Air Oxygen Flow Rate 0 Narrative Exam Narrative: General; Const General: comfortable and No acute distress Resp Effort & Inspection: normal respiratory effort and able to speak in complete sentences Extrem General: normal to inspection Psych Appearance: grossly normal Objective Imaging non stress test: My impression: NST at 1500 External monitoring: EFM 135, moderate variability, positive for accelera tions. No decelerations toco: no contractions EFM appropriate for gestational age Labs Result Diagrams: 02/10/22 12:58 02/10/22 03:58 Labs: Laboratory Results - last 24 hr 02/09/22 02/10/22 02/10/22 21:13 00:00 03:58 WBC 20.7 H RBC 3.10 L Hgb 8.9 L Hct 26.4 L MCV 85.4 MCH 28.8 MCHC 33.7 RDW 13.2 Plt Count 331 Neut % (Auto) 81.3 H Lymph % (Auto) 11.1 L [place] % (Auto) 7.2 Eos % (Auto) 0.0 L Baso % (Auto) 0.4 Neut # (Auto) 00096 H Lymph # (Auto) 2300 [place] # (Auto) 1500 H Eos # (Auto) 0 Baso # (Auto) 100 ESR Sodium Potassium Chloride Carbon Dioxide BUN Creatinine Estimated GFR BUN/Creatinine Ratio Glucose Calcium Total Bilirubin AST ALT Alkaline Phosphatase Total Creatine Kinase CK-MB (CK-2) CK-MB (CK-2) Rel Index Troponin I C-Reactive Protein Total Protein Albumin Globulin Albumin/Globulin Ratio Urine Color Straw Urine Appearance Clear Urine pH 7.0 Ur Specific [place] <=1.005 Urine Protein Negative Urine Glucose (UA) Negative Urine Ketones 1+ H Urine Occult Blood 1+ H Urine Nitrate Negative Urine Bilirubin Negative Urine Urobilinogen 0.2 Ur Leukocyte Esterase Negative Urine RBC 0-1/hpf Urine WBC None seen Ur Squamous Epith Cells 1-5 /hpf Urine Bacteria Few (2-10) H Ur Culture Indicated? Cult not indicated Nasal Screen MRSA (PCR) Negative for mrsa 02/10/22 02/10/22 02/10/22 03:58 09:20 09:20 WBC RBC Hgb Hct MCV MCH MCHC RDW Plt Count Neut % (Auto) Lymph % (Auto) [place] % (Auto) Eos % (Auto) Baso % (Auto) Neut # (Auto) Lymph # (Auto) [place] # (Auto) Eos # (Auto) Baso # (Auto) ESR Sodium 134 L Potassium 3.2 L Chloride 108 H Carbon Dioxide 19 L BUN 3 L Creatinine 0.56 Estimated GFR > 60 BUN/Creatinine Ratio 5.4 L Glucose 86 Calcium 7.6 L Total Bilirubin 0.1 L AST 19 ALT 13 Alkaline Phosphatase 87 Total Creatine Kinase CK-MB (CK-2) CK-MB (CK-2) Rel Index Troponin I 0.035 H C-Reactive Protein 8.0 H Total Protein 6.6 Albumin 3.3 L Globulin 3.3 Albumin/Globulin Ratio 1.0 Urine Color Urine Appearance Urine pH Ur Specific [place] Urine Protein Urine Glucose (UA) Urine Ketones Urine Occult Blood Urine Nitrate Urine Bilirubin Urine Urobilinogen Ur Leukocyte Esterase Urine RBC Urine WBC Ur Squamous Epith Cells Urine Bacteria Ur Culture Indicated? Nasal Screen MRSA (PCR) 02/10/22 02/10/22 02/10/22 09:20 12:14 12:28 WBC RBC Hgb Hct MCV MCH MCHC RDW Plt Count Neut % (Auto) Lymph % (Auto) [place] % (Auto) Eos % (Auto) Baso % (Auto) Neut # (Auto) Lymph # (Auto) [place] # (Auto) Eos # (Auto) Baso # (Auto) ESR 66 H Sodium Potassium Chloride Carbon Dioxide BUN Creatinine Estimated GFR BUN/Creatinine Ratio Glucose Calcium Total Bilirubin AST ALT Alkaline Phosphatase Total Creatine Kinase 35 CK-MB (CK-2) 0.25 CK-MB (CK-2) Rel Index 0.7 L Troponin I 0.086 H C-Reactive Protein Total Protein Albumin Globulin Albumin/Globulin Ratio Urine Color Urine Appearance Urine pH Ur Specific [place] Urine Protein Urine Glucose (UA) Urine Ketones Urine Occult Blood Urine Nitrate Urine Bilirubin Urine Urobilinogen Ur Leukocyte Esterase Urine RBC Urine WBC Ur Squamous Epith Cells Urine Bacteria Ur Culture Indicated? Nasal Screen MRSA (PCR) 02/10/22 02/10/22 12:58 18:10 WBC 16.8 H RBC 2.87 L Hgb 8.1 L Hct 24.8 L MCV 86.2 MCH 28.1 MCHC 32.6 RDW 13.2 Plt Count 335 Neut % (Auto) 80.8 H Lymph % (Auto) 10.9 L [place] % (Auto) 7.7 Eos % (Auto) 0.1 L Baso % (Auto) 0.5 Neut # (Auto) 14196 H Lymph # (Auto) 1800 [place] # (Auto) 1300 H Eos # (Auto) 0 Baso # (Auto) 100 ESR Sodium Potassium Chloride Carbon Dioxide BUN Creatinine Estimated GFR BUN/Creatinine Ratio Glucose Calcium Total Bilirubin AST ALT Alkaline Phosphatase Total Creatine Kinase 57 CK-MB (CK-2) 2.67 H D CK-MB (CK-2) Rel Index 4.7 Troponin I 0.769 H* C-Reactive Protein Total Protein Albumin Globulin Albumin/Globulin Ratio Urine Color Urine Appearance Urine pH Ur Specific [place] Urine Protein Urine Glucose (UA) Urine Ketones Urine Occult Blood Urine Nitrate Urine Bilirubin Urine Urobilinogen Ur Leukocyte Esterase Urine RBC Urine WBC Ur Squamous Epith Cells Urine Bacteria Ur Culture Indicated? Nasal Screen [facility] (PCR[facility] History Arachnoid cyst of posterior cranial fossa control counseling Body posture problem Cervical somatic dysfunction Chronic left-sided thoracic back pain Concussion Cranial somatic dysfunction History of traumatic brain injury Mastoid pain Observed seizure-like activity Pelvic somatic dysfunction Sacral region somatic dysfunction Segmental and somatic dysfunction of abdomen and other regions Syncope and collapse Thoracic region somatic dysfunction Vasovagal attack Surgical History Spade teeth extracted Family History Mother Graves disease Hidradenitis suppurativa Grandfather Colon cancer Grandmother Alcoholism Social History marital status: household members: spouse lives independently: Yes housing: house pets and animals: Yes (2 dogs and 1 cat; will wear gloves and mask when changing litter box) education level: college (some college) occupational status: employed current occupational exposures/hazards: No special adan needs: No seatbelt use: always water heater temp set < 120 deg: Yes working smoke detector in home: Yes fire extinguisher in home: Yes carbon monox detector in home: Yes firearms in home: Yes do you feel safe at home: Yes Smoking Status: Never smoker second hand exposure: No alcohol intake: former substance use type: marijuana (Used prior to learning she was ) during the past year weight has: increased > 10 lbs well-balanced diet: about half the time daily servings fruits/ve-4 caffeine: No Type(s) of exercise: walking Assessment & Plan Assessment & Plan narrative: 21 yo with [id number] admitted with sepsis, unclear origin, probable viral with high fever at home; with acute chest pain this am, rising troponin levels 1. acute chest pain--see medical hospitalist note, management felt to be possible pericarditis, myocarditis, but cannot r/o [place] at this time - EKG without concerning changes, chest x-ray normal, neck ultrasound normal. - initial mild increase in troponin. now significant increase with 3rd troponin level -echocardiogram ordered, Cardiology consult placed. Echocardiogram reassuring, ejection fraction normal Repeat phone call by hospitalist to rn advice, on speaker phone with me in the room as well, When repeat troponin came back with significant elevation. Applications Sales Consultant felt most likely diagnosis pericarditis. Recommended NSAIDs if able to use. I discussed with her gestational , able to use indomethacin short-term. She was started on indomethacin 50 mg every 8 hours. Repeat EKG ordered now and she will have troponin every 4 hours will try to transfer to hospital with higher level of care, and availability of MFM. director of emergency nursing looking for hospitals with beds. I called consult line, spoke with MFM, as unclear whether patient would be medical met with an MFM consult or be on the OB service with medical consult. [facility] is full, multiple patients on waiting list, can not accept transfer. Maternal- Medicine, Dr. Jessica HUERTA, said that it sounds like she is being managed appropriately, and agreed fine to use the Indocin for up to 48 hours. 2. Sepsis of unclear origin but likely viral. Respiratory viral screen for identifiable viral illnesses negative, but symptoms otherwise appear viral. Overall improving, she was febrile to 104 through Tylenol at home and T max 101.5F here overnight, now afebrile through the day on Tylenol. WBC decreasing - Continue Zosyn in case bacterial origin - await final urine cultures, blood cultures which are negative today 3. anemia, due to , iron deficiency. No improvement in H/ H on oral iron at home. Hemoglobin now further decreasing with IV hydration and blood draws - iron infusion, iron sucrose 200 mg ordered 4. status, now 27 week 3d - external monitoring/toco reassuring. - Ordered NST/EFM/toco every 8 hours She is stable but with rising cardiac enzyme levels, possible pericarditis/ myocarditis, would be better to have her at institution with a higher level of care. However no beds are currently available. She is stable and She and the baby will continue to be monitored with plan as above. COVID-19 COVID-19 status: Negative Result date/Date tested (Pos, Neg/Pending): 02/10/22 Time Spent With Patient Time with patient: less than 30 minutes Critical Care time: I spent a total of [] minutes of critical care time on this patient's care today; this time is exclusive of procedural time. Quality VTE Deep Vein Thrombosis/Pulmonary Embolism Present on Admission: No
[2022-02-10] MEDS: BENZOCAINE/MENTHOL 1 LOZ PKT 1 EACH PO (20:40)
[2022-02-10] MEDS: INDOMETHACIN 25 MG CAPSULE 50 MG PO (21:36)
[2022-02-10] MEDS: IRON SUCROSE 200 MG in SODIUM CHLORIDE 0.9% 100 ML 220 MG IV (21:36)
[2022-02-10 21:54] LABS: Creatine Kinase 83 U/L (30-135)
[2022-02-10 22:36] LABS: CKMB % Relative Index 6.3 % (1.5-5.0)
[2022-02-11] VITALS: BP 95/54; PULSE 89; RESP 16; TEMP 36.2; O2SAT 97
--- NOTE | 2022-02-11 | DI.CT.S_ITS ---
PROCEDURE: CT ANGIO CHEST PE PROTOCOL INDICATIONS: pleuritic CP/mild hemoptysis//elevated d dimer trop TECHNIQUE: After the administration of intravenous contrast, 2 mm thick sections acquired from the pulmonary apices to the posterior costophrenic angles. 3-dimensional maximum intensity projection (MIP) coronal and sagittal reformats were then acquired through the thorax. For radiation dose reduction, the following was used: automated exposure control, adjustment of mA and/or kV according to patient size. COMPARISON: [facility], CR, XR CHEST 1V, 02/10/2022, 8:47. [facility], CT, CT ANGIO CHEST PE PROTOCOL, 02/04/2021, 18:57. FINDINGS: Image quality: Excellent. Pulmonary arteries: Pulmonary arteries are normal in size, and demonstrate no intraluminal filling defects to suggest central pulmonary embolism. Lungs and pleura: Extensive opacity in the left lung. Right lower lobe pulmonary nodule measuring 0.5 cm, (5/146), unchanged. Small left pleural effusion. No pneumothorax. Central and peripheral airways are patent. Mediastinum: Heart size is normal, without pericardial effusion. No mediastinal or hilar adenopathy. Thoracic aorta is normal in caliber and enhancement. Esophagus is normal in caliber, without hiatal hernia. Bones and chest wall: No suspicious bony lesions. Ribs and thoracic spine appear intact throughout. Thyroid gland is unremarkable. No axillary or supraclavicular adenopathy. Abdomen: Visualized upper abdominal solid organs appear normal in the early arterial phase of enhancement. IMPRESSION: 1. No pulmonary embolism. 2. New extensive airspace opacity in the left lung. Suspect multifocal pneumonia. Pulmonary hemorrhage could have a similar appearance. 3. Small left pleural effusion. Dictated by: Freeman Cruz M.D. on 02/11/2022 at 13:35 Approved by: Freeman Cruz M.D. on 02/11/2022 at 13:41
[2022-02-11] MEDS: SODIUM CHLORIDE 0.9% 1,000 ML 100 ML IV (00:01)
[2022-02-11] MEDS: ACETAMINOPHEN 325 MG TABLET 650 MG PO ×2 (00:02→06:22)
[2022-02-11] MEDS: PIPERACILLIN/TAZO 3.375 GM in SODIUM CHLORIDE 0.9% 100 ML IV ×2 (00:29→08:49)
[2022-02-11 01:23] LABS: Creatine Kinase 116 U/L (30-135)
[2022-02-11 01:39] LABS: Creatine Kinase MB 8.38 ng/mL (<2.37)
[2022-02-11 01:48] LABS: CKMB % Relative Index 7.2 % (1.5-5.0)
[2022-02-11 04:00] VITALS: BP 94/68; PULSE 91; RESP 20; TEMP 36.2; O2SAT 97
[2022-02-11 05:03] LABS: Creatine Kinase 136 U/L (30-135)
[2022-02-11 05:22] LABS: CKMB % Relative Index 8.6 % (1.5-5.0)
[2022-02-11] MEDS: INDOMETHACIN 25 MG CAPSULE 50 MG PO (06:22)
--- NOTE | 2022-02-11 07:06 | PC.NURSE ---
S[employer] Supervisor Note-Patient has had serial Troponins Q4h, values have increased each drawn, Hospitalist and OB Dr aware. Patient denies chest pain, but has a persistent dry non-productive cough, chest congestion has increased overnight. She has been afebrile and says throat pain has decreased, receiving Tylenol, Indocin, and Zosyn. BP low, but stable, denies dizziness while ambulating to BR with SBA.
[2022-02-11 08:15] VITALS: BP 124/77; PULSE 101; RESP 18; TEMP 36.4; O2SAT 93
[2022-02-11] MEDS: FERROUS SULFATE 325 MG TABLET PO (08:49)
[2022-02-11] MEDS: FISH OIL 1,000 MG CAPSULE 1000 MG PO (08:50)
--- NOTE | 2022-02-11 10:53 | DI.US.S_ITS ---
PROCEDURE: US OB LIMITED INDICATIONS: BPP,growth; maternal pericarditis evaluate well being OUTSIDE/PRIOR DATING DATA: Last menstrual period (LMP): Unknown LMP-based estimated date of delivery (SUMAYA): Unknown First dating scan (date and location): 09/24/2021 Estimated date of delivery (SUMAYA) from first dating scan: 05/09/2022 The calculations are made using the working SUMAYA of 05/09/2022. TECHNIQUE: Real-time scanning was performed of the fetus, with image documentation and biometric measurements. Biophysical profile was also obtained. Endovaginal scanning: Not indicated COMPARISON: [facility], OB >= 14 WEEKS FETUS, 12/17/2021, 15:00. FINDINGS: General: A single living intrauterine gestation is present. Presentation: Vertex Placenta: Placental position is anterior, without previa. Amniotic fluid index: 15.2 cm, normal range is 5-24 cm. Single deepest vertical pocket is 5.5 cm. heart rate: 125 beats per minute. Maternal cervical canal: 3.9 cm long. Normal lower limit is 2.5 cm. biometrics: Biparietal diameter: 7.2 cm, 29 weeks, 0 day. Head circumference: 27.1 cm, 29 weeks, 4 days. Abdominal circumference: 24.8 cm, 29 weeks, 0 day. Femur length: 5.2 cm, 27 weeks, 4 days. Clinically estimated gestational age: 27 weeks, 4 days Composite gestational age from present scan: 27 weeks, 5 days Estimated weight and percentile: 1246 grams, 76 percent Biophysical profile: Tone: 2 points. Movement: 2 points. Respiration: 2 points. Largest pocket of fluid: 2 points. Umbilical artery Doppler: Not evaluated Four-chamber heart, stomach, bilateral kidneys and urinary bladder are visualized and are within normal limits. IMPRESSION: 1. Single live intrauterine gestation with fetus in vertex presentation. heart rate is 125 beats per minute. Normal amount of amniotic fluid. Normal growth. Estimated weight is at 76 percentile. 2. biophysical profile score is 8/8. We strive to produce accurate, complete, and clear reports of imaging services. To assist us in improving patient care, this report was composed using standard report templates and voice recognition software. Therefore, it may contain abnormal punctuation, insertions and/or omissions. Occasional wrong-word or sound-alike substitutions may occur. Though we review the report and make efforts to correct it, we do recommend that the report be read carefully in proper context to recognize any text inaccuracies. Dictated by: Jalen Calero M.D. on 02/11/2022 at 12:09 Approved by: Jalen Calero M.D. on 02/11/2022 at 12:13
[2022-02-11 11:33] LABS: Creatine Kinase 107 U/L (30-135)
--- NOTE | 2022-02-11 11:38 | PM.PN.1 ---
Subjective Subjective Date Patient Seen: 02/11/22 Time Patient Seen: 11:38 Interval history: Annie reports that she is feeling much better. Reports all symptoms have resolved except for a nonproductive cough. Reports once she brought up some minimal phlegm after brushing her teeth with some pink in it, otherwise nonproductive. Reports sore throat, nasal congestion, and had pressure have improved. She is feeling good movement. She inquires if she can go home today. Denies any fever, chills, myalgias, chest pain, shortness of breath, nausea, leakage of fluid, vaginal bleeding, cramping or contractions. Exam Vital Signs (past 8 hours): - 02/11/22 04:00 02/11/22 08:15 02/11/22 07:00 Temperature 97.2 F L 97.6 F Pulse Rate 91 H 101 H Respiratory Rate 20 18 Blood Pressure 94/68 124/77 Pulse Oximetry 97 93 Oxygen Delivery Method Room Air Oxygen Flow Rate 0 Oxygen Delivery Method Room Air Oxygen Flow Rate 0 Most recent Pulse 96 Narrative Exam Narrative: General: Mildly fatigued but otherwise well-appearing female in no acute distress Heart: Regular rhythm, mildly tachycardic, no murmurs auscultated Lungs: Initially sounded mildly decreased left upper lung field, but on repeat auscultation clear bilaterally with good air movement bilaterally. No wheezes, rhonchi as or rales Abdomen: Gravid, nontender. Uterus: Nontender Extremities: No pedal edema, no calf tenderness Objective Imaging OB Ultrasound: Radiologist's impression: Bedside radiology US/ BPP today: FINDINGS:? ? General:? A single living intrauterine gestation is present.? Presentation:? Vertex Placenta:? Placental position is anterior, without previa.? Amniotic fluid index:? 15.2 cm, normal range is 5-24 cm.? Single deepest vertical pocket is 5.5 cm. heart rate:? 125 beats per minute.? Maternal cervical canal:? 3.9 cm long.? Normal lower limit is 2.5 cm.? ? biometrics:? Biparietal diameter:? 7.2 cm, 29 weeks, 0 day. Head circumference:? 27.1 cm, 29 weeks, 4 days. Abdominal circumference:? 24.8 cm, 29 weeks, 0 day. Femur length:? 5.2 cm, 27 weeks, 4 days. Clinically estimated gestational age:? 27 weeks, 4 days Composite gestational age from present scan:? 27 weeks, 5 days Estimated weight and percentile:? 1246 grams, 76 percent ? Biophysical profile:? Tone:? 2 points. Movement:? 2 points.? Respiration:? 2 points.? Largest pocket of fluid:? 2 points.? ? Umbilical artery Doppler:? Not evaluated ? Four-chamber heart, stomach, bilateral kidneys and urinary bladder are visualized and are within normal limits. ? ? IMPRESSION:? 1. Single live intrauterine gestation with fetus in vertex presentation.? heart rate is 125 beats per minute.? Normal amount of amniotic fluid.? Normal growth.? Estimated weight is at 76 percentile. 2.? biophysical profile score is 8/8. ? CT scan - chest: Radiologist's impression: PROCEDURE:? CT ANGIO CHEST PE PROTOCOL ? INDICATIONS:? pleuritic CP/mild hemoptysis//elevated d dimer trop ? TECHNIQUE:? After the administration of intravenous contrast, 2 mm thick sections acquired from the pulmonary apices to the posterior costophrenic angles.? 3-dimensional maximum intensity projection (MIP) coronal and sagittal reformats were then acquired through the thorax.? For radiation dose reduction, the following was used:? automated exposure control, adjustment of mA and/or kV according to patient size.? ? COMPARISON:? [facility], CR, XR CHEST 1V, 02/10/2022, 8:47.? [facility], CT, CT ANGIO CHEST PE PROTOCOL, 02/04/2021, 18:57. ? FINDINGS:? Image quality:? Excellent.? ? Pulmonary arteries:? Pulmonary arteries are normal in size, and demonstrate no intraluminal filling defects to suggest central pulmonary embolism.? ? Lungs and pleura:? Extensive opacity in the left lung.? Right lower lobe pulmonary nodule measuring 0.5 cm, (5/146), unchanged.? Small left pleural effusion.? No pneumothorax.? Central and peripheral airways are patent.? ? Mediastinum:? Heart size is normal, without pericardial effusion.? No mediastinal or hilar adenopathy.? Thoracic aorta is normal in caliber and enhancement.? Esophagus is normal in caliber, without hiatal hernia.? ? Bones and chest wall:? No suspicious bony lesions.? Ribs and thoracic spine appear intact throughout.? Thyroid gland is unremarkable.? No axillary or supraclavicular adenopathy.? ? Abdomen:? Visualized upper abdominal solid organs appear normal in the early arterial phase of enhancement.? ? IMPRESSION:? 1. No pulmonary embolism. ? 2. New extensive airspace opacity in the left lung.? Suspect multifocal pneumonia.? Pulmonary hemorrhage could have a similar appearance. ? 3. Small left pleural effusion. Labs Result Diagrams: 02/11/22 11:05 02/10/22 03:58 Labs: Laboratory Results - last 24 hr 02/10/22 02/10/22 02/10/22 09:20 09:20 12:14 WBC RBC Hgb Hct MCV MCH MCHC RDW Plt Count Neut % (Auto) Lymph % (Auto) [place] % (Auto) Eos % (Auto) Baso % (Auto) Neut # (Auto) Lymph # (Auto) [place] # (Auto) Eos # (Auto) Baso # (Auto) ESR Total Creatine Kinase 35 CK-MB (CK-2) 0.25 CK-MB (CK-2) Rel Index 0.7 L Troponin I 0.086 H C-Reactive Protein 8.0 H 02/10/22 02/10/22 02/10/22 12:28 12:58 18:10 WBC 16.8 H RBC 2.87 L Hgb 8.1 L Hct 24.8 L MCV 86.2 MCH 28.1 MCHC 32.6 RDW 13.2 Plt Count 335 Neut % (Auto) 80.8 H Lymph % (Auto) 10.9 L [place] % (Auto) 7.7 Eos % (Auto) 0.1 L Baso % (Auto) 0.5 Neut # (Auto) 41419 H Lymph # (Auto) 1800 [place] # (Auto) 1300 H Eos # (Auto) 0 Baso # (Auto) 100 ESR 66 H Total Creatine Kinase 57 CK-MB (CK-2) 2.67 H D CK-MB (CK-2) Rel Index 4.7 Troponin I 0.769 H* C-Reactive Protein 02/10/22 02/11/22 02/11/22 21:32 01:07 04:15 WBC RBC Hgb Hct MCV MCH MCHC RDW Plt Count Neut % (Auto) Lymph % (Auto) [place] % (Auto) Eos % (Auto) Baso % (Auto) Neut # (Auto) Lymph # (Auto) [place] # (Auto) Eos # (Auto) Baso # (Auto) ESR Total Creatine Kinase 83 116 136 H CK-MB (CK-2) 5.20 H D 8.38 H D 11.70 H CK-MB (CK-2) Rel Index 6.3 H* 7.2 H* 8.6 H* Troponin I 1.750 H* 2.410 H* 2.660 H* C-Reactive Protein 02/11/22 11:05 WBC RBC Hgb Hct MCV MCH MCHC RDW Plt Count Neut % (Auto) Lymph % (Auto) [place] % (Auto) Eos % (Auto) Baso % (Auto) Neut # (Auto) Lymph # (Auto) [place] # (Auto) Eos # (Auto) Baso # (Auto) ESR Total Creatine Kinase 107 CK-MB (CK-2) CK-MB (CK-2) Rel Index Troponin I C-Reactive Protein [facility] Medical History Arachnoid cyst of posterior cranial fossa control counseling Body posture problem Cervical somatic dysfunction Chronic left-sided thoracic back pain Concussion Cranial somatic dysfunction History of traumatic brain injury Mastoid pain Observed seizure-like activity Pelvic somatic dysfunction Sacral region somatic dysfunction Segmental and somatic dysfunction of abdomen and other regions Syncope and collapse Thoracic region somatic dysfunction Vasovagal attack Surgical History [place] teeth extracted Family History Mother Graves disease Hidradenitis suppurativa Grandfather Colon cancer Grandmother Alcoholism Social History marital status: household members: spouse lives independently: Yes housing: house pets and animals: Yes (2 dogs and 1 cat; will wear gloves and mask when changing litter box) education level: college (some college) occupational status: employed current occupational exposures/hazards: No special adan needs: No seatbelt use: always water heater temp set < 120 deg: Yes working smoke detector in home: Yes fire extinguisher in home: Yes carbon monox detector in home: Yes firearms in home: Yes do you feel safe at home: Yes Smoking Status: Never smoker second hand exposure: No alcohol intake: former substance use type: marijuana (Used prior to learning she was ) during the past year weight has: increased > 10 lbs well-balanced diet: about half the time daily servings fruits/ve-4 caffeine: No Type(s) of exercise: walking Assessment & Plan Assessment and plan (1) Pneumonia affecting in second trimester: Status: Acute (2) Acute viral syndrome: Status: Acute (3) Pericarditis: Qualifiers: Pericarditis type: infectious Infectious pericarditis etiology: viral Chronicity: acute Qualified Code(s): I30.1 - Infective pericarditis Status: Acute Assessment & Plan narrative: 21 yo female at [id number] . Patient feeling much better and doing much better. Only symptomatic with a cough now, no shortness of breath. Cardiac enzymes are decreasing. CT-PA today to rule out PE as cause of cardiac enzymes did now show a left lung pneumonia. status is reassuring # chest pain with acute elevated cardiac enzymes, likely diagnosis mild pericarditis or myocarditis -had serial EKG and cardiac enzymes with significant elevation of cardiac enzymes. Last EKG was normal. Cardiology consultation had been placed and repeat consultation with the significant elevated cardiac enzymes. Echocardiogram was overall normal, reassuring. Normal ejection fraction and normal cardiac wall function. -cardiac enzymes at peak dinner not declining. -patient's chest pain has resolved. -s/p Indomethacin for 24 hours. Will discontinue -as possible cause of elevated cardiac enzymes, CT-PA recommend patient to rule out pulmonary embolism since she had developed a cough, and discussed with her with increased risk for . Patient was hesitant since she had already had a chest x-ray, hesitant due to radiation exposure. D-dimer ordered, if negative then would defer, but discussed with patient with likely will be positive. D-dimer was positive. Hospitalist did feel we should proceed with ruling out a PE. CT-PA showed a left lung pneumonia and small pleural effusion. Patient's pulse ox is normal and she has no shortness of breath. She was on Zosyn. She is doing well and is is felt that she could be treated as an outpatient. She will be changed to Augmentin for discharge as recommended by medical hospitalist, to finish antibiotics. -follow-up with me in 5 days in the office, she will call earlier as needed. # sepsis, high fever likely due initially to viral upper respiratory syndrome. New diagnosis now of superimposed bacterial pneumonia by CT-PA. Overall clinically much improved. Afebrile for over 24 hours, feeling much better. Pulsox normal. No SOB, or RAZA, symptomatic with cough only. Wbc decreasing. -discharge home -status post Zosyn x 15 day. Discharged on Augmentin b.i.d. for 7 days -use inhaler as needed wheezing. Patient does have a history of asthma, usually only triggered by cold and exercise, no inhaler use in a long time. Rx new albuterol inhaler for her # anemia , iron deficient -status post 2nd iron infusion today. Continue oral iron at home. Will recheck H/H in a few weeks and repeat iron infusion as needed #27week 4 d . -reassuring status. Repeat nonstress test today reactive, no decelerations. -BPP today 11/01, EFW 76 percentile -advised to check movement daily and call if has decreased movement. Also reviewed PTL precautions. -follow-up appointment scheduled for 5 days COVID-19 COVID-19 status: Negative Result date/Date tested (Pos, Neg/Pending): 02/09/22 Time Spent With Patient Time with patient: 30 to 49 minutes with 50% spent counseling/coordinating care Critical Care time: I spent a total of [] minutes of critical care time on this patient's care today; this time is exclusive of procedural time. Quality VTE Deep Vein Thrombosis/Pulmonary Embolism Present on Admission: No
[2022-02-11 11:44] LABS: D Dimer 1330 ng/ml (<500)
[2022-02-11 11:49] LABS: Add Manual Diff / Slide Review NO; Basophils Absolute Auto 100 /uL (0-100); Basophils Percent Auto 0.4 % (0-2); Creatine Kinase MB 8.44 ng/mL (<2.37); Eosinophils Absolute Auto 100 /uL (0-450); Eosinophils Percent Auto 0.7 % (2-4); Hematocrit 25.7 % (36-46); Hemoglobin 8.5 g/dL (12.0-16.0); Lymphocytes Absolute Auto 1400 /uL (1100-4500); Lymphocytes Percent Auto 9.4 % (25-40); Mean Corpuscular HGB Conc 33.1 % (30-36); Mean Corpuscular Hemoglobin 28.7 PG (26-34); Mean Corpuscular Volume 86.9 fL (80-100); Monocytes Absolute Auto 700 /uL (0-900); Monocytes Percent Auto 4.8 % (3-14); Neutrophils Absolute Auto 12500 /uL (1500-7000); Neutrophils Percent Auto 84.7 % (50-75); Platelet Count 323 X10^3/uL (150-400); Red Blood Cell Count 2.96 X10^6/uL (4.0-5.2); Red Cell Distribution Width 13.6 % (11.6-14.8); White Blood Cell Count 14.7 X10^3/uL (4.5-11.0)
[2022-02-11 12:00] VITALS: BP 106/64; PULSE 96; RESP 24; TEMP 36.4; O2SAT 97
[2022-02-11 12:07] LABS: CKMB % Relative Index 7.9 % (1.5-5.0)
--- NOTE | 2022-02-11 15:02 | PC.NURSE ---
02/11/22 1500 NST [id number] baseline 125bpm, +accels, neg decels, no UCs per pt or toco. +FM per pt. I reviewed this tracing with Dr Alejandre. I reviewed warning signs and symptoms with the patient and when to call OBGYN. -Dipesh STEPHEN
--- NOTE | 2022-02-11 15:42 | PM.DS.1 ---
History of Present Illness History of Present Illness Date Patient Seen: 02/11/22 Time Patient Seen: 15:00 Chief complaint: fever, w/v x1 day Narrative: Annie Oneal is a 21 year old G1 female, @ 27weeks 3days gestation who was admitted for a persistent high fever of unknown origin. The day prior she had onset of acute chills and myalgias, followed by sore throat. She also had some minimal nasal congestion and felt chest congestion but did not have a cough. She had developed a fever to 104 F at home without improvement with Tylenol. Prior to presentation she recorded temp of 106? F. She has a history of multiple episodes of strep throat and felt initially the symptoms were similar. Discharge Providers Provider Date of admission: 02/09/22 21:10 Discharge Date: 02/11/22 Primary care physician: Rayshawn Borges DO Consults: 02/10/22 08:35 Consult to Hospitalist Service Routine Comment: Consulting Provider: Jay Faith Reason for consultation: new onset chest pain Discharge provider: Sheridan Alejandre MD Summary Hospital Course Discharge Diagnosis: Sepsis Viral syndrome Superimposed bacterial pneumonia Pericarditis Twenty-seven weeks Iron deficient anemia of Hospital Course: She presented to the ED. highest temperature in the ED was 101.5 F, with reported temperature in ambulance 103 F . In the ED she had negative testing for COVID, flu and viral PCR were all negative. Urinalysis showed a few bacteria, otherwise negative. Urine culture and blood cultures sent which all eventually returned as negative. Throat culture showed mixed haroon. Her WBC count was elevated for . Hemoglobin/hematocrit showed mild anemia consistent with recent prior values in . She was admitted for fever of unknown origin, sepsis. She was given 1 dose of ceftriaxone in the ED. her temperature did drop to afebrile overnight. However the next morning she did have acute onset of persistent chest pain. EKG and cardiac enzymes were ordered with acute consult to medical hospitalist. EKG showed no significant changes from baseline EKG in ED, essentially sinus tachycardia but otherwise normal EKG. A chest x-ray was normal. Neck ultrasound was negative. Her chest pain was worse with inspiration and movement. She was started on Zosyn empirically due to the fever, sepsis, though it was felt most likely to be of viral origin. Initially her cardiac enzymes were normal but then had a minimal increase. Cardiology was consulted. Echocardiogram ordered which was essentially normal. Her 3rd set of cardiac enzymes had a significant increase and repeat telephone consult conversation held with cardiology, the medical hospitalist and with myself present. Diagnosis was felt to be a likely pericarditis or myocarditis. NSAIDs were recommended and with consultation with me, gynaecological oncologist, decision made to place her on indomethacin short-term. Following every 4 hour cardiac enzymes and EKGs was recommended. Patient was beginning to feel better and chest pain had resolved. Decision was made to try to transfer the patient to a higher level of care were cardiology was available as well as Maternal- Medicine. However no beds were available. I did speak with Maternal Medicine physician director sanitation bureau at , Dr. Jessica Troy who felt that we were managing her appropriately, agreed with the indomethacin for up to 48 hours and felt it sounded like the patient was turning the corner and improving. No OB or medical beds were available at [facility] or on railroad baggage porter subsequently checking elsewhere. Serial cardiac enzymes and EKGs were performed and the patient was followed overnight. On hospital day 2, she felt much better with all her symptoms improved except for a nonproductive cough. She had remained afebrile for over 24 hours. Her WBC count was decreasing. Her cardiac enzymes however had not yet picked. With her cough, at one point she reported seeing a little blood in phlegm and due to risk factors of and the infection for clotting, and with the elevated troponins, decision was made that it was important to rule out a PE as well. Patient was hesitant to have another x-ray after chest x-ray, thus D-dimer ordered on off chance it would be negative. D-dimer did return as positive and discussed with the patient importance of further evaluation and she did decide to proceed with the CT-PA. CT-PA was negative for pulmonary embolism but showed a multifocal left lung pneumonia. Cardiac enzymes in the afternoon returned with a significant decrease. Patient continued to feel well, with only symptoms of a mild nonproductive cough. She was ambulating without problems, denied shortness of breath or chest pain, or sore throat and desired discharge to home. She was given iron sucrose infusions 200 mg IV daily x2 days due to anemia consistent with iron deficiency, worsening with multiple blood draws in hospital. Patient had not had improvement in her H/H at home with oral iron and had been scheduled for iron infusions. Started in the hospital due to acute worsening. surveillance had remained reassuring during her hospital stay. Patient denied any cramping or contractions through her stay and toco monitoring showed no contractions. She felt good movement. Twice daily nonstress tests were reactive. A biophysical profile on hospital day 2 was 8/8 and with NST 10/10, with normal growth and normal SHAHZAD. With patient much improved, she was discharge to home with strict precautions to return if she felt shortness of breath, return of chest pain or fever, decreased movement, persisting cramping or contractions, leakage of fluid or vaginal bleeding. She was scheduled for a follow-up appointment with me in 5 days. Status at Discharge Cognitive/behavioral status at discharge: oriented and at baseline, oriented Functional status at discharge: independent ambulation Overall status at discharge: patient is progressing back to baseline Time Spent with Patient Time spent: Greater than 30 minutes Exam Vital Signs (past 8 hours): - 02/11/22 08:15 02/11/22 12:00 Temperature 97.6 F 97.5 F L Pulse Rate 101 H 96 H Respiratory Rate 18 24 Blood Pressure 124/77 106/64 Pulse Oximetry 93 97 Oxygen Flow Rate 0 0 Oxygen Delivery Method Room Air Oxygen Flow Rate 0 Narrative Exam Narrative: Exam Narrative: General:? Mildly fatigued but otherwise well-appearing female in no acute distress Heart:? Regular rhythm, mildly tachycardic, no murmurs auscultated Lungs:? Initially sounded mildly decreased left upper lung field, but on repeat auscultation clear bilaterally with good air movement bilaterally.? No wheezes, rhonchi as or rales Abdomen:? Gravid, nontender.? Uterus:? Nontender Extremities:? No pedal edema, no calf tenderness Objective Labs Result Diagrams: 02/11/22 11:05 02/10/22 03:58 Labs: Laboratory Results - last 24 hr 02/10/22 02/10/22 02/10/22 12:58 18:10 21:32 WBC 16.8 H RBC 2.87 L Hgb 8.1 L Hct 24.8 L MCV 86.2 MCH 28.1 MCHC 32.6 RDW 13.2 Plt Count 335 Neut % (Auto) 80.8 H Lymph % (Auto) 10.9 L [place] % (Auto) 7.7 Eos % (Auto) 0.1 L Baso % (Auto) 0.5 Neut # (Auto) 14749 H Lymph # (Auto) 1800 [place] # (Auto) 1300 H Eos # (Auto) 0 Baso # (Auto) 100 D-Dimer Total Creatine Kinase 57 83 CK-MB (CK-2) 2.67 H D 5.20 H D CK-MB (CK-2) Rel Index 4.7 6.3 H* Troponin I 0.769 H* 1.750 H* 02/11/22 02/11/22 02/11/22 01:07 04:15 11:05 WBC RBC Hgb Hct MCV MCH MCHC RDW Plt Count Neut % (Auto) Lymph % (Auto) [place] % (Auto) Eos % (Auto) Baso % (Auto) Neut # (Auto) Lymph # (Auto) [place] # (Auto) Eos # (Auto) Baso # (Auto) D-Dimer Total Creatine Kinase 116 136 H 107 CK-MB (CK-2) 8.38 H D 11.70 H 8.44 H CK-MB (CK-2) Rel Index 7.2 H* 8.6 H* 7.9 H* Troponin I 2.410 H* 2.660 H* 1.250 H* 02/11/22 02/11/22 11:05 11:05 WBC 14.7 H RBC 2.96 L Hgb 8.5 L Hct 25.7 L MCV 86.9 MCH 28.7 MCHC 33.1 RDW 13.6 Plt Count 323 Neut % (Auto) 84.7 H Lymph % (Auto) 9.4 L [place] % (Auto) 4.8 Eos % (Auto) 0.7 L Baso % (Auto) 0.4 Neut # (Auto) 88110 H Lymph # (Auto) 1400 [place] # (Auto) 700 Eos # (Auto) 100 Baso # (Auto) 100 D-Dimer 1330 H Total Creatine Kinase CK-MB (CK-2) CK-MB (CK-2) Rel Index Troponin I [facility] Medical History Arachnoid cyst of posterior cranial fossa control counseling Body posture problem Cervical somatic dysfunction Chronic left-sided thoracic back pain Concussion Cranial somatic dysfunction History of traumatic brain injury Mastoid pain Observed seizure-like activity Pelvic somatic dysfunction Sacral region somatic dysfunction Segmental and somatic dysfunction of abdomen and other regions Syncope and collapse Thoracic region somatic dysfunction Vasovagal attack Surgical History [place] teeth extracted Family History Mother Graves disease Hidradenitis suppurativa Grandfather Colon cancer Grandmother Alcoholism Social History marital status: household members: spouse lives independently: Yes housing: house pets and animals: Yes (2 dogs and 1 cat; will wear gloves and mask when changing litter box) education level: college (some college) occupational status: employed current occupational exposures/hazards: No special adan needs: No seatbelt use: always water heater temp set < 120 deg: Yes working smoke detector in home: Yes fire extinguisher in home: Yes carbon monox detector in home: Yes firearms in home: Yes do you feel safe at home: Yes Smoking Status: Never smoker second hand exposure: No alcohol intake: former substance use type: marijuana (Used prior to learning she was ) during the past year weight has: increased > 10 lbs well-balanced diet: about half the time daily servings fruits/ve-4 caffeine: No Type(s) of exercise: walking Discharge Assessment & Plan Assessment and Plan Assessment: Sepsis, high fever of unknown definitive origin. Probable viral syndrome. Superimposed bacterial pneumonia Mild pericarditis versus myocarditis Anemia of 27 week 4 day with reassuring testing Plan of Treatment: Status post Zosyn for 1.5 days. Discharge home on Augmentin for 7 days for left lung multifocal pneumonia Follow-up appointment in 5 days with me, gynaecological oncologist. Instructed to call earlier or return to ED for any significant symptoms, especially as reviewed including recurrent chest pain, shortness of breath or recurrent high fever Discharge Plan Discharge Plan Patient Disposition: Home Provider Discharge Comment: You were seen for what was likely a viral illness causing the high fever. This then caused a subsequent pneumonia, likely bacterial (from bacteria then getting into your lungs). Take and finish the antibiotics prescribed. The viral illness likely caused a mild pericarditis or myocarditis, inflammation the lining over your heart or of heart muscle which was the likely cause of your chest pain and elevated heart enzymes. Your heart enzymes are improving. Your heart function was normal on the heart ultrasound and follow-up EKGs. Surveillance of the baby was reassuring. You may use Tylenol as needed for any body aches. You should call if you get a recurrent fever. Discharge orders & Medications Prescriptions: New guaifenesin [Mucus Relief ER] 600 mg Tablet Extended Release 12hr 600 mg PO Q12HR PRN (Reason: Cough) Qty: 60 0RF amoxicillin-pot clavulanate 875-125 mg tablet 1 tab PO BID Qty: 14 0RF Continued ferrous gluconate 324 mg (37.5 mg iron) tablet 324 mg PO DAILY [id number] oil 400 mcg-35 mg -25 mg-5 mg tablet,chewable 1 tab PO DAILY multivitamin Tablet 1 tab PO DAILY albuterol sulfate 90 mcg/actuation HFA aerosol inhaler See Rx Instructions .ROUTE .COMPLEX Qty: 20.1 0RF Dose Instruction: INHALE 2 PUFFS BY MOUTH EVERY 6 HOURS NEEDED FOR SHORTNESS OF BREATH OR WHEEZING Rx Instructions: INHALE 2 PUFFS BY MOUTH EVERY 6 HOURS NEEDED FOR SHORTNESS OF BREATH OR WHEEZING Follow up/Referrals: Sheridan Alejandre MD [Physician] - 02/16/22 10:30 am Rayshawn Borges DO [Primary Care Provider] - Discharge Health Status Multidrug resistant organism: No MDRO Diet/Activity/Treatments Diet: Regular Activity: Rest as much as possible to help your immune system. Go to the ER if you feel acutely short of breath and not improving. Call for persistent cramping, contractions or decreased movement Skin/Wound/Dressing Care Report to your healthcare provider any signs of infection, such as:: chills, fever Visit Report/Discharge Packet Instructions: DI for Pneumonia -- Adult Discharge Data Primary Care Provider: Rayshawn Borges Quality VTE Deep Vein Thrombosis/Pulmonary Embolism Present on Admission: No
--- NOTE | 2022-02-11 18:48 | P.PN_ITS ---
Subjective Subjective Date Patient Seen: 02/11/22 Interval history: 21-year-old at 27 and half weeks gestational age who was admitted with fever of unknown origin. Hospitalists were consulted yesterday secondary to acute onset of pleuritic chest pain. She was found have elevated troponin, concerns for sepsis as well. Patient had developed a significant sore throat, chills and myalgias on the day prior to admission. She had had some mild nasal congestion and chest congestion as well but no cough. She did temp up to 104? F. She continued to spike fevers despite the use of acetaminophen. She had a temperature as high as 106? prior to coming to the emergency department. In the ED, COVID was negative, UA was negative. Viral PCR was done and was negative as well. At the time of hospitalist consultation, patient had developed pleuritic chest pain. Subsequently, troponins became positive and continue to increase. Due to concerns for sepsis and pericarditis/myocarditis, efforts were made to transfer her to a higher level of care. However, the she had a normal echocardiogram and there were no beds available regionally. Therefore she remained in our hospital. Today, she reports she feels 100% better. She states she no longer has any sore throat, myalgias, chills, or nasal congestion. She has developed a primarily dry cough. She does report an episode of hemoptysis. She states she does have a little bit of chest tightness but no pleuritic pain. She only develops pain when she coughs. She notes normal movement. She denies any vaginal discharge, contractions, vaginal bleeding, or other concerns related to her . Exam Vital Signs (past 8 hours): - 02/11/22 12:00 Temperature 97.5 F L Pulse Rate 96 H Respiratory Rate 24 Blood Pressure 106/64 Pulse Oximetry 97 Oxygen Flow Rate 0 Oxygen Delivery Method Room Air Oxygen Flow Rate 0 Narrative Exam Narrative: GEN: Alert and oriented x 3, NAD HEENT:NC, Face symmetric CHEST: Respiratory excursions symmetric, CTAB CV: Mildly tachycardic with regular rhythm, no M/R/G ABD: Soft, nontender, gravid uterus, BT present in all 4 quadrants, no masses EXTR: warm, well perfused, no C/C/E SKIN: warm and dry, no rash NEURO: Alert and oriented x 3, nonfocal Objective Labs Result Diagrams: 02/11/22 11:05 02/10/22 03:58 Labs: Laboratory Results - last 24 hr 02/10/22 02/10/22 02/11/22 18:10 21:32 01:07 WBC RBC Hgb Hct MCV MCH MCHC RDW Plt Count Neut % (Auto) Lymph % (Auto) [place] % (Auto) Eos % (Auto) Baso % (Auto) Neut # (Auto) Lymph # (Auto) [place] # (Auto) Eos # (Auto) Baso # (Auto) D-Dimer Total Creatine Kinase 57 83 116 CK-MB (CK-2) 2.67 H D 5.20 H D 8.38 H D CK-MB (CK-2) Rel Index 4.7 6.3 H* 7.2 H* Troponin I 0.769 H* 1.750 H* 2.410 H* 02/11/22 02/11/22 02/11/22 04:15 11:05 11:05 WBC RBC Hgb Hct MCV MCH MCHC RDW Plt Count Neut % (Auto) Lymph % (Auto) [place] % (Auto) Eos % (Auto) Baso % (Auto) Neut # (Auto) Lymph # (Auto) [place] # (Auto) Eos # (Auto) Baso # (Auto) D-Dimer 1330 H Total Creatine Kinase 136 H 107 CK-MB (CK-2) 11.70 H 8.44 H CK-MB (CK-2) Rel Index 8.6 H* 7.9 H* Troponin I 2.660 H* 1.250 H* 02/11/22 11:05 WBC 14.7 H RBC 2.96 L Hgb 8.5 L Hct 25.7 L MCV 86.9 MCH 28.7 MCHC 33.1 RDW 13.6 Plt Count 323 Neut % (Auto) 84.7 H Lymph % (Auto) 9.4 L [place] % (Auto) 4.8 Eos % (Auto) 0.7 L Baso % (Auto) 0.4 Neut # (Auto) 24761 H Lymph # (Auto) 1400 [place] # (Auto) 700 Eos # (Auto) 100 Baso # (Auto) 100 D-Dimer Total Creatine Kinase CK-MB (CK-2) CK-MB (CK-2) Rel Index Troponin I [facility] Medical History Arachnoid cyst of posterior cranial fossa control counseling Body posture problem Cervical somatic dysfunction Chronic left-sided thoracic back pain Concussion Cranial somatic dysfunction History of traumatic brain injury Mastoid pain Observed seizure-like activity Pelvic somatic dysfunction Sacral region somatic dysfunction Segmental and somatic dysfunction of abdomen and other regions Syncope and collapse Thoracic region somatic dysfunction Vasovagal attack Surgical History [place] teeth extracted Family History Mother Graves disease Hidradenitis suppurativa Grandfather Colon cancer Grandmother Alcoholism Social History marital status: household members: spouse lives independently: Yes housing: house pets and animals: Yes (2 dogs and 1 cat; will wear gloves and mask when changing litter box) education level: college (some college) occupational status: employed current occupational exposures/hazards: No special adan needs: No seatbelt use: always water heater temp set < 120 deg: Yes working smoke detector in home: Yes fire extinguisher in home: Yes carbon monox detector in home: Yes firearms in home: Yes do you feel safe at home: Yes Smoking Status: Never smoker second hand exposure: No alcohol intake: former substance use type: marijuana (Used prior to learning she was ) during the past year weight has: increased > 10 lbs well-balanced diet: about half the time daily servings fruits/ve-4 caffeine: No Type(s) of exercise: walking Assessment & Plan Assessment & Plan narrative: Pleuritic chest pain Troponin continue to increase but subsequently peaked and is now declining. Peak troponin level was 2.66 early this morning. It has come down to 1.25 now. Cardiology was contacted overnight and felt the patient likely has pericarditis/myocarditis secondary to a viral syndrome. They recommended supportive care. She did receive indomethacin which is now being discontinued. Echocardiogram was within normal limits. Tachycardia/hemoptysis/pleuritic chest pain is a state that does increase risk for thrombosis. Given the above, CT pulmonary angiogram was performed today. It does not reveal any evidence of pulmonary embolism. Sepsis Patient did have symptoms of sepsis including fever, tachycardia, elevated troponin and leukocytosis. Etiology appears to be due to a combination of a viral syndrome and now superimposed multifocal left lung pneumonia Sepsis physiology has resolved Multi focal pneumonia Patient was placed on empiric Zosyn on admission. No evidence of strep, all viral studies were negative. As noted, CT pulmonary angiogram was done today which revealed a multi focal left-sided pneumonia with small effusion. She is now afebrile for greater than 24 hours. White blood cell count is improving. She has normal room air saturations and is feeling improved. We had a long discussion about her presentation. Encouraged to have a very low threshold to return to the hospital should she develop recurrent fevers, chills, worsening shortness breath, or inability to hold down medications. at 27 and half weeks gestational age Ongoing management per primary counselor After multiple conversations with chief green officer the hospital, chief marketing officer of the hospital, OBGYN, discharge planning, patient and her significant other, decision was made for patient to remain in our facility. Given her significant improvements in the past 24 hours and her desire to discharge home, this was done in consultation with the an the patient and her partner. Encouraged her to have a short threshold for return as noted above. She was given a 7 day course of Augmentin 875 mg twice daily. This is safe in . She will have close follow-up with her OB next week. Time Spent With Patient Critical Care time: I spent a total of [] minutes of critical care time on this patient's care today; this time is exclusive of procedural time. Quality VTE Deep Vein Thrombosis/Pulmonary Embolism Present on Admission: No
== END 2022-02-11 15:50 | disposition home or self-care (01) | DRG 831 ==
LOC: ED 20:02 → AC 21:12 → ICU 02-10 10:14 → AC 02-11 07:41 → ICU 02-11 07:41
PROVIDERS: Family Medicine; Nurse Practitioner Critical Care Medicine; Obstetrics & Gynecology; Student in an Organized Health Care Education/Training Program; Admitting Provider Family Medicine; Emergency Provider Emergency Medicine; PCP Family Medicine; Referring Provider Emergency Medicine; Visit Provider Family Medicine
DX: O98.812 Other maternal infectious and parasitic diseases complicating pregnancy, second trimester (principal); J18.9 Pneumonia, unspecified organism; I30.1 Infective pericarditis; O26.892 Other specified pregnancy related conditions, second trimester; O99.512 Diseases of the respiratory system complicating pregnancy, second trimester; O99.012 Anemia complicating pregnancy, second trimester; I51.4 Myocarditis, unspecified; Z3A.27 27 weeks gestation of pregnancy; Z20.822 Contact with and (suspected) exposure to COVID-19
CPT/HCPCS: 36415; 71045; 71275; 76536; 76815; 76819; 80053; 81001; 81003; 81015; 81025; 82550; 82553; 83605; 84145; 84484; 84550; 85025; 85379; 85651; 86140; 87040; 87070; 87086; 87633; 87797; 87880; 93005; 93010; 93306; 96365; 99222; 99238; 99284; A9270; J0696; J1756; J2543; Q9967

== ENCOUNTER → 2022-02-22 11:55 | Outpatient (CLI) | payer OTHER, SELFPAY ==
[2022-02-09 23:49] VITALS: BMI 26.6
[2022-02-22 12:31] LABS: Add Manual Diff / Slide Review NO; Basophils Absolute Auto 0 /uL (0-100); Basophils Percent Auto 0.4 % (0-2); Eosinophils Absolute Auto 100 /uL (0-450); Eosinophils Percent Auto 0.5 % (2-4); Hematocrit 30.2 % (36-46); Lymphocytes Absolute Auto 2500 /uL (1100-4500); Lymphocytes Percent Auto 23.3 % (25-40); Mean Corpuscular Hemoglobin 28.3 PG (26-34); Mean Corpuscular Volume 85.7 fL (80-100); Monocytes Absolute Auto 500 /uL (0-900); Monocytes Percent Auto 4.9 % (3-14); Neutrophils Absolute Auto 7800 /uL (1500-7000); Neutrophils Percent Auto 70.9 % (50-75); Platelet Count 494 X10^3/uL (150-400); Red Blood Cell Count 3.53 X10^6/uL (4.0-5.2); Red Cell Distribution Width 13.8 % (11.6-14.8); White Blood Cell Count 10.9 X10^3/uL (4.5-11.0)
== END ==
PROVIDERS: Obstetrics & Gynecology; PCP Family Medicine; Referring Provider Family Medicine; Visit Provider Family Medicine
DX: O99.519 Diseases of the respiratory system complicating pregnancy, unspecified trimester (principal); Z3A.28 28 weeks gestation of pregnancy; J18.9 Pneumonia, unspecified organism
CPT/HCPCS: 36415; 85025; 86850; 87086

== ENCOUNTER → 2022-04-12 10:25 | Outpatient (CLI) | payer OTHER, SELFPAY ==
[2022-04-13 10:17] LABS: Strep Grp B PCR NEG for Grp B Strep
== END ==
PROVIDERS: PCP Family Medicine; Visit Provider Obstetrics & Gynecology
DX: Z34.83 Encounter for supervision of other normal pregnancy, third trimester (principal); Z3A.36 36 weeks gestation of pregnancy
CPT/HCPCS: 87086; 87653

== ENCOUNTER → 2022-04-19 12:33 | Outpatient (CLI) | payer OTHER, SELFPAY ==
[2022-04-19 13:28] LABS: Add Manual Diff / Slide Review NO; Basophils Absolute Auto 100 /uL (0-100); Basophils Percent Auto 0.6 % (0-2); Eosinophils Absolute Auto 100 /uL (0-450); Eosinophils Percent Auto 1.1 % (2-4); Hematocrit 29.9 % (36-46); Lymphocytes Absolute Auto 2200 /uL (1100-4500); Lymphocytes Percent Auto 26.2 % (25-40); Mean Corpuscular HGB Conc 33.4 % (30-36); Mean Corpuscular Volume 80.8 fL (80-100); Monocytes Absolute Auto 600 /uL (0-900); Monocytes Percent Auto 7.6 % (3-14); Neutrophils Absolute Auto 5500 /uL (1500-7000); Neutrophils Percent Auto 64.5 % (50-75); Platelet Count 414 X10^3/uL (150-400); Red Cell Distribution Width 14.3 % (11.6-14.8); White Blood Cell Count 8.5 X10^3/uL (4.5-11.0)
== END ==
PROVIDERS: PCP Family Medicine; Referring Provider Obstetrics & Gynecology; Visit Provider Obstetrics & Gynecology
DX: D64.9 Anemia, unspecified (principal)
CPT/HCPCS: 36415; 85025

== ENCOUNTER 2022-04-23 16:39 | Outpatient (CLI) | payer OTHER, SELFPAY ==
--- NOTE | 2022-04-23 17:20 | PM.OBTRLD ---
Visit Information Visit Information Date of evaluation: 04/23/22 Primary OB Provider: Kayley Reynolds On-call OB Provider: Michaelle Bhardwaj Reason for Evaluation: Yes non-stress test non-stress test reason: decreased movement Comments/Additional reasons for admission: 21YO @ [id number] presents for evaluation of decreased movement. Has been feeling occasional, mild contractions x 2 days, about every 15 minutes apart. Some are uncomfortable and some are not. Scant spotting yesterday, none today. No leaking of fluid. Hasn't felt much movement today, even after taking a nap. Routine PN care w/ . Vital Signs Vital Signs: BP 117/80, HR 103bpm, T 36.8C Temporal PFSH Medical History Arachnoid cyst of posterior cranial fossa control counseling Body posture problem Cervical somatic dysfunction Chronic left-sided thoracic back pain Concussion Cranial somatic dysfunction History of traumatic brain injury Mastoid pain Observed seizure-like activity Pelvic somatic dysfunction Sacral region somatic dysfunction Segmental and somatic dysfunction of abdomen and other regions Syncope and collapse Thoracic region somatic dysfunction Vasovagal attack Surgical History [place] teeth extracted Family History Mother Graves disease Hidradenitis suppurativa Grandfather Colon cancer Grandmother Alcoholism Social History marital status: household members: spouse lives independently: Yes housing: house pets and animals: Yes (2 dogs and 1 cat; will wear gloves and mask when changing litter box) education level: college (some college) occupational status: employed current occupational exposures/hazards: No special adan needs: No seatbelt use: always water heater temp set < 120 deg: Yes working smoke detector in home: Yes fire extinguisher in home: Yes carbon monox detector in home: Yes firearms in home: Yes do you feel safe at home: Yes Smoking Status: Never smoker second hand exposure: No alcohol intake: former substance use type: marijuana (Used prior to learning she was ) during the past year weight has: increased > 10 lbs well-balanced diet: about half the time daily servings fruits/ve-4 caffeine: No Type(s) of exercise: walking Review of Systems Review of Systems ROS: Yes All systems reviewed with the patient and are negative except as otherwise documented Exam Vital Signs (past 8 hours): see above Presentation: vertex Evaluation Evaluation Baseline heart rate: 150 Variability: Moderate (11-25) monitor accelerations: Present Monitor Decelerations: Absent Contraction Frequency (minutes): 0 Comments: Uterine irritability noted. No contractions per toco. CE by CECILIA Beth: closed-FT/50%/high Diagnosis, Plan/Disposition Final Diagnosis (1) Decreased movement affecting management of mother, antepartum: Status: Acute Plan/Disposition Plan: Reassurance given of reactive NST with FM during NST. Discharge to home with routine precautions. F/U with as previously scheduled. OB Disposition: home
== END 2022-04-23 17:40 | disposition home or self-care (01) ==
LOC: LABOR 16:41 → OB 04-28 06:36
PROVIDERS: PCP Family Medicine; Referring Provider Obstetrics & Gynecology; Visit Provider Obstetrics & Gynecology
DX: O36.8130 Decreased fetal movements, third trimester, not applicable or unspecified (principal); O47.1 False labor at or after 37 completed weeks of gestation; Z3A.37 37 weeks gestation of pregnancy
CPT/HCPCS: 59025; G0378; G0379

== ENCOUNTER 2022-05-03 02:08 | Inpatient (IN) | payer OTHER, SELFPAY ==
--- NOTE | 2022-05-03 04:57 | P.TNLD_ITS ---
Visit Information Visit Information Date of evaluation: 05/03/22 Primary OB Provider: Kayley Reynolds On-call OB Provider: Sienna Malin Comments/Additional reasons for admission: 21yo at 39w1d here for contractions. The pt reports she drank castor oil around 7pm last night. She then had multiple bouts of diarrhea. Contractions started around 10:30pm, and increased in intensity and frequency since then. No vaginal bleeding or LOF. She is feeling her baby move regularly. [facility] Medical History Arachnoid cyst of posterior cranial fossa control counseling Body posture problem Cervical somatic dysfunction Chronic left-sided thoracic back pain Concussion Cranial somatic dysfunction History of traumatic brain injury Mastoid pain Observed seizure-like activity Pelvic somatic dysfunction Sacral region somatic dysfunction Segmental and somatic dysfunction of abdomen and other regions Syncope and collapse Thoracic region somatic dysfunction Vasovagal attack Surgical History [place] teeth extracted Family History Mother Graves disease Hidradenitis suppurativa Grandfather Colon cancer Grandmother Alcoholism Social History marital status: household members: spouse lives independently: Yes housing: house pets and animals: Yes (2 dogs and 1 cat; will wear gloves and mask when changing litter box) education level: college (some college) occupational status: employed current occupational exposures/hazards: No special adan needs: No seatbelt use: always water heater temp set < 120 deg: Yes working smoke detector in home: Yes fire extinguisher in home: Yes carbon monox detector in home: Yes firearms in home: Yes do you feel safe at home: Yes Smoking Status: Never smoker second hand exposure: No alcohol intake: former substance use type: marijuana (Used prior to learning she was ) during the past year weight has: increased > 10 lbs well-balanced diet: about half the time daily servings fruits/ve-4 caffeine: No Type(s) of exercise: walking Evaluation Evaluation Baseline heart rate: 135 Variability: Moderate (11-25) monitor accelerations: Present Monitor Decelerations: Absent Contraction Frequency (minutes): 3 Category of Tracing: Reactive Cervical dilation (cm): 1 Cervical effacement (%): 50 station: -3 Diagnosis, Plan/Disposition Final Diagnosis (1) Labor, prolonged latent phase: Status: Acute Plan/Disposition Plan: at 39w1d here with regular painful contractions but no cervical change, despite frequent contractions. Encouraged hydration while in the hospital due to diarrhea from castor oil. Not currently in active labor. FHT initially non- reactive, BPP 8/8 however. Now FHT more reassuring with accels present. PO Vistaril given for patient comfort. Pt is stable for d/c home with return precautions given. May be candidate for elective IOL later today. Encouraged to not take additional castor oil. OB Disposition: home
--- NOTE | 2022-05-03 05:10 | DI.US.S_ITS ---
PROCEDURE: US OB BIOPHYSICAL PROFILE INDICATIONS: WELL BEING OUTSIDE/PRIOR DATING DATA: Last menstrual period (LMP): Not available. LMP-based estimated date of delivery (SUMAYA): Not available. First dating scan (date and location): 09/24/2021. Estimated date of delivery (SUMAYA) from first dating scan: 05/09/2022. The calculations are made using the working SUMAYA of 05/09/2022. TECHNIQUE: Real-time scanning was performed of the fetus, with image documentation and biometric measurements. Biophysical profile was also obtained. Endovaginal scanning: Not performed COMPARISON: [facility], , US OB >= 14 WEEKS FETUS, 12/17/2021, 15:00. [facility], , US OB < 14 WEEKS + OB TRANSVAG, 09/24/2021, 9:53. [facility], , US OB LIMITED, 02/11/2022, 11:22. [facility], , US OB >= 14 WEEKS FETUS, 04/19/2022, 12:25. FINDINGS: General: A single living intrauterine gestation is present. Presentation: Vertex. Placenta: Placental position is posterior , without previa. Amniotic fluid index: 13.8 cm, normal range is 5-24 cm. Single deepest vertical pocket is 6.1 cm. heart rate: 131 beats per minute. Maternal cervical canal: Not visualized. biometrics: Not performed Clinically estimated gestational age: 39 weeks 1 day Biophysical profile: Tone: 2 points. Movement: 2 points. Respiration: 2 points. Largest pocket of fluid: 2 points. IMPRESSION: 1. A single living intrauterine gestation redemonstrated. 2. Normal biophysical profile. We strive to produce accurate, complete, and clear reports of imaging services. To assist us in improving patient care, this report was composed using standard report templates and voice recognition software. Therefore, it may contain abnormal punctuation, insertions and/or omissions. Occasional wrong-word or sound-alike substitutions may occur. Though we review the report and make efforts to correct it, we do recommend that the report be read carefully in proper context to recognize any text inaccuracies. Dictated by: Shwetha Crane M.D. on 05/03/2022 at 10:49 Approved by: Shwetha Crane M.D. on 05/03/2022 at 10:52
[2022-05-03] MEDS: hydrOXYzine pamoate 25 MG CAPSULE 50 MG PO (05:39)
--- NOTE | 2022-05-03 07:51 | P.HPOB_ITS ---
OB HPI Date/Time Date of admission: 05/03/22 Date Patient Seen: 05/03/22 Time Patient Seen: 07:51 History of Present Condition Chief complaint: Eval of Labor SUMAYA Calculator Estimated Delivery Date Method Current WG Current Estimate 05/09/22 Ultrasound #1 39w 1d Other Estimates 05/01/22 LMP (Uncertain) 40w 2d : 2 Para: 0 care: limited care, initiated at week # (16), number of visits (8) and pounds weight gain (51) Dating criteria OB: based on 1st trimester US only Ultrasounds: normal 1st trimester US and normal mid trimester US Obstetrical complications: none Medical complications OB: neurological (h/o head trauma, syncope) and immunologic (admitted for viral syndrome in 02/15) Preadmission Labs Last OB Lab Results: Blood Type O Negative 05/03/22 08:42 Antibody Screen Positive 05/03/22 08:42 Hematocrit 28.7 % (36-46) L 05/03/22 08:42 Hemoglobin 9.5 g/dL (12.0-16.0) L 05/03/22 08:42 Hepatitis B Surface Antigen Negative s/c (NEGATIVE) 01/04/22 14 :15 Hepatitis C Antibody <0.1 s/co ratio (0.0-0.9) 02/03/21 14:18 Glucose 1 Hour 91 mg/dL (76-139) 01/20/22 12:13 Group B Streptococcus (PCR) Neg for grp b strep 04/12/22 10:25 -: Chlamydia screen: negative, Gonorrhea screen: negative and Urine: negative Genetic Screens: Cell-free DNA: Normal (normal male) External Labs -: Urine: negative Prior (ies) Past Pregnancies Del. Date GA/Weeks Labor Lgth Wt Sex Route Outcome Anesthesia Place Delv Breastfeed Preg Comp Name 04/13/21 7 elective Delivery Date: 04/13/21 Last Updated by: Agatha Jose RN medical (no procedure needed) Evaluation Evaluation Baseline heart rate: 135 Variability: Moderate (11-25) monitor accelerations: Present Monitor Decelerations: Absent Contraction Frequency (minutes): 5 Uterine Contraction Intensity: Moderate Dilation (cm): 1 Effacement (%): 85 station: 0 Position of cervix: anterior Consistency: medium PFSH Medical History Arachnoid cyst of posterior cranial fossa control counseling Body posture problem Cervical somatic dysfunction Chronic left-sided thoracic back pain Concussion Cranial somatic dysfunction History of traumatic brain injury Mastoid pain Observed seizure-like activity Pelvic somatic dysfunction Sacral region somatic dysfunction Segmental and somatic dysfunction of abdomen and other regions Syncope and collapse Thoracic region somatic dysfunction Vasovagal attack Surgical History [place] teeth extracted Family History Mother Graves disease Hidradenitis suppurativa Grandfather Colon cancer Grandmother Alcoholism Social History marital status: household members: spouse lives independently: Yes housing: house pets and animals: Yes (2 dogs and 1 cat; will wear gloves and mask when changing litter box) education level: college (some college) occupational status: employed current occupational exposures/hazards: No special adan needs: No seatbelt use: always water heater temp set < 120 deg: Yes working smoke detector in home: Yes fire extinguisher in home: Yes carbon monox detector in home: Yes firearms in home: Yes do you feel safe at home: Yes Smoking Status: Never smoker second hand exposure: No alcohol intake: former substance use type: marijuana (Used prior to learning she was ) during the past year weight has: increased > 10 lbs well-balanced diet: about half the time daily servings fruits/ve-4 caffeine: No Type(s) of exercise: walking Meds Home Medications and Allergies Home Medications Medication Instructions Recorded Confirmed Type CCC91-CJ 400 mcg-om3 35 mg-dha 25 1 tab PO DAILY 09/16/21 04/27/22 History mg-epa 5 mg-fish oil chewable tablet multivitamin 1 tab PO DAILY 09/16/21 04/27/22 History ferrous gluconate 324 mg (37.5 mg 324 mg PO DAILY 01/05/22 04/27/22 History iron) tablet albuterol sulfate 90 mcg/actuation See Rx Instructions .Route 02/11/22 04/27/22 Rx aerosol inhaler .COMPLEX #20.1 grams guaifenesin 600 mg tablet, 600 mg PO Q12HR PRN Cough #60 tabs 02/11/22 04/27/22 Rx extended release 12 hr (Mucus Relief ER) Allergies Allergy/AdvReac Type Severity Reaction Status Date / Time drospirenone AdvReac Severe Vomiting Verified 04/27/22 14:43 OB Exam Narrative Exam Narrative: Generally: Patient lying in bed, uncomfortable with contractions, no acute distress Lungs: Clear to auscultation bilaterally Cardiovascular: Regular rate and rhythm Fundal height: 40 cm Estimated weight 7 1/2 to 8 lbs Extremities: Trace edema Objective Labs 05/03/22 08:42 Assessment and Plan Assessment and Plan Assessment and Plan narrative: Assessment: 21-year-old 2 para 0 at 39-,1/7 weeks gestation in early to active labor Plan: Pitocin augmentation if needed Epidural as necessary Expected management to spontaneous vaginal delivery Time Spent with Patient Total time spent with greater than 50% in coordination of care (as documented) at patient's floor/unit and/or counseling patient:: 15-24 minutes
[2022-05-03 09:05] LABS: Add Manual Diff / Slide Review NO; Basophils Absolute Auto 0 /uL (0-100); Basophils Percent Auto 0.3 % (0-2); Eosinophils Absolute Auto 100 /uL (0-450); Eosinophils Percent Auto 0.9 % (2-4); Hematocrit 28.7 % (36-46); Hemoglobin 9.5 g/dL (12.0-16.0); Lymphocytes Absolute Auto 2600 /uL (1100-4500); Lymphocytes Percent Auto 23.9 % (25-40); Mean Corpuscular HGB Conc 33.1 % (30-36); Mean Corpuscular Hemoglobin 26.6 PG (26-34); Mean Corpuscular Volume 80.5 fL (80-100); Monocytes Absolute Auto 800 /uL (0-900); Monocytes Percent Auto 7.7 % (3-14); Neutrophils Absolute Auto 7200 /uL (1500-7000); Neutrophils Percent Auto 67.2 % (50-75); Platelet Count 394 X10^3/uL (150-400); Red Blood Cell Count 3.57 X10^6/uL (4.0-5.2); Red Cell Distribution Width 14.6 % (11.6-14.8); White Blood Cell Count 10.7 X10^3/uL (4.5-11.0)
[2022-05-03] MEDS: LACTATED RINGERS 1,000 ML 100 ML IV ×3 (09:12→18:45)
[2022-05-03] MEDS: OXYTOCIN PREMIX 30 UNIT/500 ML PLAST..BAG IV (09:13)
--- NOTE | 2022-05-03 10:48 | PM.OBPNLAB ---
Date/Time Date Patient Seen: 05/03/22 Time Patient Seen: 10:49 Pain Control Pain control: tolerating well Pelvic Exam Dilation (cm): 3 Effacement (%): 85 station: 0 Amniotic membrane status: Bulging Contractions Contractions on admission: irregular Monitor mode: External Pitocin rate (mU/min): 5 Contraction frequency (min): 3 Contraction duration (min): 1 Contraction pattern: Regular Contraction intensity: Moderate Status status: Category l Heart Rate Baseline: 145 Monitor Accelerations: Present Monitor Decelerations: Absent Monitor Variability: Moderate Assessment and Plan Assessment: active labor Comments: AROM with clear amniotic fluid Epidural as necessary Expected management to spontaneous vaginal delivery
[2022-05-03 10:55] VITALS: BP 120/63
[2022-05-03] MEDS: FENT 2MCG/ML BUPIV 0.125% EPI 200 MCG/100 ML PLAST..BAG 12 MCG EPIDURAL ×2 (12:50→19:35)
--- NOTE | 2022-05-03 14:17 | PM.OBPNLAB ---
Date/Time Date Patient Seen: 05/03/22 Time Patient Seen: 13:10 Pain Control Pain control: epidural Pelvic Exam Dilation (cm): 3 Effacement (%): 100 station: 0 Amniotic membrane status: Ruptured Contractions Contractions on admission: irregular Monitor mode: External Pitocin rate (mU/min): 9 Contraction frequency (min): 3 Contraction duration (min): 1 Contraction pattern: Regular Contraction intensity: Strong/Firm Status status: Category l Heart Rate Baseline: 140 Monitor Accelerations: Present Monitor Decelerations: Absent Monitor Variability: Moderate Assessment and Plan Assessment: active labor Plan: continuous present management Comments: Side to side, peanut ball
--- NOTE | 2022-05-03 18:01 | PM.OBPNLAB ---
Date/Time Date Patient Seen: 05/03/22 Time Patient Seen: 18:02 Pain Control Pain control: epidural Pelvic Exam Dilation (cm): 4 Effacement (%): 100 station: 0 Amniotic membrane status: Ruptured Contractions Contractions on admission: irregular Monitor mode: External Pitocin rate (mU/min): 16 Contraction frequency (min): 3 Contraction duration (min): 1 Contraction pattern: Regular Contraction intensity: Strong/Firm Status status: Category l Heart Rate Baseline: 135 Monitor Accelerations: Present Monitor Decelerations: Absent Monitor Variability: Moderate Assessment and Plan Assessment: active labor Plan: continuous present management Comments: Will consider a 4 hour break from Pitocin later this evening if there is no significant cervical change Begin antibiotics at 12 hours ruptured if not close to delivery
[2022-05-03] MEDS: LIDOCAINE 1% 20 ML (22:15)
--- NOTE | 2022-05-03 23:06 | P.PCNOB_ITS ---
Events: Labor Augmentation Labor & Delivery Delivery date: 05/03/22 Intrapartal Events: Intolerance Cervical ripening method: none Delivery augmentation: rupture of membranes and pitocin Delivery monitor: external FHT and external uterine Route of delivery: forceps (Laufe, outlet) Indication for instrumentation: nonreassuring FHR tracing Episiotomy description: None L&D Laceration Description: Perineal - 3rd Degree and Vaginal - 2nd Degree Delivery repair: vicryl and chromic Quantitative Blood Loss: 400 Anesthesia Type: Epidural and Local (for repair) Complications: None Narrative: Patient complete and pushing x 60min. Called to see pt for late decelerations. Vacuum applied x 2. Decision made to proceed to Forceps assisted delivery due to deep decels with pushing down to the 80's. The infant was in the OA presentation. Laufe forceps applied without difficulty. With 1 pull, the vertex delivered over an intact perineum in the LADI presentation at 2150. The forceps were removed. The remainder of the body was delivered without difficulty and placed on mom's abdomen. Pitocin was given in the IVF's. The placenta delivered intact with a 3-vessel cord at 2158. The fundus was massaged to firm. A third degree perineal laceration, a right lateral sulcus tear, a second degree vaginal, and a first degree right labial tear were repaired in the usual fashion. 10cc of 1% lidocaine was also used for the repair. Hemostasis was achieved. A rectal exam was performed and there were no stitches or tears into the rectum. QBL 400cc. Apgars 9 at 1 minute and 9 at 5 minutes. Bottlefeeding. Mom and stable to recovery. Weight: 8# Baby 1: gender: Male Presentation: vertex Position: Left Occiput Anterior Placenta delivery description: Spontaneous Cord Vessel Description: 3 Vessels and Clamped/Cut (after cord sto pped pulsing) score (1 min): 9 score (5 min): 9 weight: 8 lb Plan for aftercare: Routine care
[2022-05-04 00:33] VITALS: BP 111/73; PULSE 85; RESP 16; TEMP 36.9
[2022-05-04] MEDS: IBUPROFEN 600 MG TABLET PO ×4 (00:51→19:57)
[2022-05-04] MEDS: ACETAMINOPHEN 325 MG TABLET 650 MG PO ×4 (00:51→19:57)
[2022-05-04 03:45] LABS: Hematocrit 22.7 % (36-46); Hemoglobin 7.5 g/dL (12.0-16.0)
[2022-05-04] MEDS: LACTATED RINGERS 1,000 ML 1000 ML IV (04:40)
[2022-05-04 08:24] LABS: Hematocrit 22.7 % (36-46); Hemoglobin 7.5 g/dL (12.0-16.0)
[2022-05-04] MEDS: PRENATAL VIT,CALC/IRON/FOLIC 1 TABLET 1 TAB PO (08:55)
[2022-05-04] MEDS: DOCUSATE 100 MG CAPSULE PO (08:55)
--- NOTE | 2022-05-04 17:54 | PM.OBPN.1 ---
Subjective - OB Subjective Patient comments: no complaints and pain well controlled [place] baby status: doing well and bottle feeding well [place] feeding status: exclusively bottle feeding Date Patient Seen: 05/04/22 Time Patient Seen: 17:54 Interval history: day # 0-1 status post outlet forceps assisted delivery with a third-degree laceration. Bottle feeding is going well. Patient's pain is well controlled with Tylenol and ibuprofen. Her bleeding is tapering. Exam Narrative Exam Narrative: Generally: Patient is sitting up in bed, holding , no acute distress Fundus: Firm at U -1 Extremities: Trace edema, negative [place] Perineum: Some edema Objective Labs 05/04/22 08:13 Labs: Laboratory Results - last 24 hr 05/03/22 05/04/22 05/04/22 08:42 03:30 03:30 Hgb 7.5 L Hct 22.7 L Blood Type O Negative Antibody Screen Positive Antibody Titer <1 Antibody Identification Anti-D Maternal Bleed Negative Crossmatch See Detail 05/04/22 08:13 Hgb 7.5 L Hct 22.7 L Blood Type Antibody Screen Antibody Titer Antibody Identification Maternal Bleed Crossmatch Assessment & Plan Assessment and Plan (1) Labor, prolonged latent phase: Status: Acute Plan day: 1 plan OB: routine care Comments: Anticipate discharge May 05, 2022 Patient to follow-up in 3 and 6 weeks Time Spent With Patient Time: Total time spent is greater than 50% in coordination of care (as documented) at patient's floor/unit and/or counseling patient: Time with patient: 15-24 minutes
[2022-05-04] MEDS: RHO(D) IMMUNE GLOBULIN 1,500 UNIT SYRINGE 1500 UNIT IM (20:00)
[2022-05-05] MEDS: ACETAMINOPHEN 325 MG TABLET 650 MG PO ×2 (02:15→08:40)
[2022-05-05] MEDS: IBUPROFEN 600 MG TABLET PO ×2 (02:15→08:41)
--- NOTE | 2022-05-05 07:49 | P.DS_ITS ---
Discharge Providers Provider Date of admission: 05/03/22 02:08 Discharge Date: 05/05/22 Primary care physician: Rayshawn Borges DO Consults: 05/04/22 23:03 Consult to Executive Assistant Routine Comment: Discharge provider: Johan Ko MD Summary Hospital Course Date Patient Seen: 05/05/22 Time Patient Seen: 07:49 Diagnoses: Intrauterine gestation, 39+1 weeks EGA, delivered vaginally by outlet forceps due to late decelerations Anemia, chronic Hospital Course: Annie presented in early labor, early on the morning 05/03/2022 and progressed slowly in labor with epidural place. Entered 2nd stage of labor late on evening 05/03/2022 with pushing developed repetitive late decelerations which necessitated outlet forceps delivery of a viable male infant, Apgars 9/9 and a weight 8 lb. Patient sustained third-degree perineal laceration second- degree vaginal laceration were repaired usual manner following delivery both mother and baby have done extremely well the mother having prompt return of bowel and bladder function, she came independently, tolerating diet, pain is well controlled oral pain medications. She will be discharged at this time in an afebrile normotensive condition to all after counseling regarding precautiona ry symptoms, limitations activity, medications, plans for follow-up. Medications discharge will include resumption of all of her pre delivery gestations, ibuprofen 600 mg p.o. q.6 hours as needed pain, and Colace 100 mg p.o. b.i.d.. Peripartum Data Infant Delivery Method: Assisted Delivery (Outlet forceps (Laufe)) Laceration Description: Perineal - 3rd Degree and Vaginal - 2nd Degree Episiotomy description: None Procedures: Continuous lumbar epidural catheter placement in labor Vaginal , outlet forceps complications: none Discharge Diagnosis (1) Labor, prolonged latent phase: Status: Acute (2) Normal vaginal delivery: Status: Acute Status at Discharge Cognitive/behavioral status at discharge: oriented Functional status at discharge: independent ambulation Overall status at discharge: patient is progressing back to baseline Time Spent with Patient Time attestation: Total time spent providing and/or coordinating discharge services: Time spent: Less than 30 minutes Objective Labs 05/04/22 08:13 Labs: Laboratory Results - last 24 hr 05/04/22 08:13 Hgb 7.5 L Hct 22.7 L Exam Const General: cooperative and comfortable Nutritional Appearance: average body habitus Orientation: alert and oriented x3 HENMT Head: normal to inspection, atraumatic and abrasion Ears: hearing grossly normal bilaterally Face and sinus: face symmetric Eyes General: appearance normal, both eyes and all related structures Conjunctivae: conjunctivae normal Sclera: sclerae normal EOM: EOM intact bilaterally Neck Neck: normal visual inspection Resp Effort & Inspection: normal respiratory effort and able to speak in complete sentences GI Inspection: normal to inspection Palpation: soft, no hepatosplenomegaly, mass (Firm, NT fundus U-4) and No tender External Female Exam: laceration (Repair intact), ecchymosis (Slight) and other (No significant bleeding noted) Extrem General: no calf tenderness Psych Appearance: grossly normal Mental Status: mental status grossly normal Speech and Movement: speech and movement normal Mood: congruent mood Affect: normal affect Attitude: cooperative Thought Process: normal Thought Content: normal Judgment: judgment good Discharge Plan Discharge Plan Patient Disposition: Home Provider Discharge Comment: Call with fever, chills, or bleeding vaginally more than a pad in an hour Ibuprofen 600 mg every 6 hours as needed Tylenol 650 mg every 6 hours as needed Stool softeners as needed Push oral fluids Discharge orders & Medications Prescriptions: New docusate sodium 100 mg Capsule 100 mg PO BID 30 Days Qty: 60 0RF ibuprofen 600 mg Tablet 600 mg PO Q6HR PRN (Reason: Pain, Mild (1-3)) Qty: 30 2RF Continued ferrous gluconate 324 mg (37.5 mg iron) tablet 324 mg PO DAILY [id number] oil 400 mcg-35 mg -25 mg-5 mg tablet,chewable 1 tab PO DAILY multivitamin Tablet 1 tab PO DAILY albuterol sulfate 90 mcg/actuation HFA aerosol inhaler See Rx Instructions .ROUTE .COMPLEX Qty: 20.1 0RF Dose Instruction: INHALE 2 PUFFS BY MOUTH EVERY 6 HOURS NEEDED FOR SHORTNESS OF BREATH OR WHEEZING Rx Instructions: INHALE 2 PUFFS BY MOUTH EVERY 6 HOURS NEEDED FOR SHORTNESS OF BREATH OR WHEEZING Follow up/Referrals: Kayley Reynolds MD [Physician] - (Follow-up in 3 weeks for perineum check Follow-up in 6 weeks for 6 week exam) Discharge Health Status Multidrug resistant organism: No MDRO Diet/Activity/Treatments Diet: Regular Activity: Nothing in the vagina No squatting or lunging Other treatments: Over the counter Tylenol may also be used for pain relief. Over the counter MiraLax may also be used to keep stools soft while the stitches are healing. Skin/Wound/Dressing Care Report to your healthcare provider any signs of infection, such as:: chills, fever, increased pain and unusual drainage Dressing: N/A Visit Report/Discharge Packet Instructions: DI for Labor and Delivery, Vaginal Discharge Data Primary Care Provider: Rayshawn Borges
[2022-05-05] MEDS: DOCUSATE 100 MG CAPSULE PO (08:40)
[2022-05-05] MEDS: PRENATAL VIT,CALC/IRON/FOLIC 1 TABLET 1 TAB PO (08:40)
== END 2022-05-05 09:30 | disposition home or self-care (01) | DRG 806 ==
PROVIDERS: Obstetrics & Gynecology; Admitting Provider Family Medicine; PCP Family Medicine; Referring Provider Family Medicine; Visit Provider Family Medicine
DX: O63.0 Prolonged first stage (of labor) (principal); O36.0130 Maternal care for anti-D [Rh] antibodies, third trimester, not applicable or unspecified; Z37.0 Single live birth; O76 Abnormality in fetal heart rate and rhythm complicating labor and delivery; O70.1 Second degree perineal laceration during delivery; O70.0 First degree perineal laceration during delivery; O99.02 Anemia complicating childbirth; D64.89 Other specified anemias; Z3A.39 39 weeks gestation of pregnancy
CPT/HCPCS: 36415; 59050; 59200; 59400; 59409; 76819; 85014; 85018; 85025; 85461; 86850; 86870; 86886; 86900; 86901; G0379; J2590; J2790

== ENCOUNTER → 2023-03-03 11:37 | Outpatient (CLI) | payer OTHER, SELFPAY ==
[2022-05-05 08:14] VITALS: BMI 26.6
[2023-03-03 13:45] LABS: Add Manual Diff / Slide Review NO; Basophils Absolute Auto 100 /uL (0-100); Basophils Percent Auto 0.6 % (0-2); Eosinophils Absolute Auto 100 /uL (0-450); Eosinophils Percent Auto 1.2 % (2-4); Hematocrit 36.3 % (36-46); Hemoglobin 12.1 g/dL (12.0-16.0); Lymphocytes Absolute Auto 3400 /uL (1100-4500); Lymphocytes Percent Auto 35.4 % (25-40); Mean Corpuscular HGB Conc 33.3 % (30-36); Mean Corpuscular Hemoglobin 26.7 PG (26-34); Mean Corpuscular Volume 80.4 fL (80-100); Monocytes Absolute Auto 500 /uL (0-900); Monocytes Percent Auto 5.5 % (3-14); Neutrophils Absolute Auto 5600 /uL (1500-7000); Neutrophils Percent Auto 57.3 % (50-75); Platelet Count 541 X10^3/uL (150-400); Red Blood Cell Count 4.51 X10^6/uL (4.0-5.2); Red Cell Distribution Width 15.1 % (11.6-14.8); White Blood Cell Count 9.7 X10^3/uL (4.5-11.0)
[2023-03-03 13:57] LABS: Alanine Aminotransferase 13 IU/L (<35); Albumin 4.4 g/dL (3.5-5.0); Albumin Globulin Ratio 1.1 (1.0-2.8); Alkaline Phosphatase 76 U/L (38-126); Aspartate Aminotransferase 20 IU/L (14-36); BUN Creatinine Ratio 13.3 (6-22); Bilirubin Total 0.5 mg/dL (0.2-1.3); Blood Urea Nitrogen 11 mg/dL (7-17); Calcium 9.9 mg/dL (8.4-10.2); Carbon Dioxide 23 mmol/L (22-32); Chloride 104 mmol/L (98-107); Estimated Glomerular Filt Rate > 60 mL/min (>60); Globulin 3.9 g/dL (1.7-4.1); Glucose 90 mg/dL (70-100); HEMOLYSIS < 15 (0-50); Potassium 4.5 mmol/L (3.4-5.1); Sodium 135 mmol/L (137-145); Total Protein 8.3 g/dL (6.3-8.2)
[2023-03-03 14:25] LABS: TSH w/ Reflex to FT4 0.76 uIU/mL (0.47-4.68)
== END ==
PROVIDERS: PCP Family Medicine; Referring Provider Family Medicine; Visit Provider Family Medicine
DX: D64.9 Anemia, unspecified (principal); F90.9 Attention-deficit hyperactivity disorder, unspecified type; L73.2 Hidradenitis suppurativa
CPT/HCPCS: 36415; 80053; 84443; 85025

== ENCOUNTER → 2023-04-03 14:29 | Outpatient (CLI) | payer OTHER, SELFPAY ==
[2022-05-05 08:14] VITALS: BMI 26.6
--- NOTE | 2023-04-03 14:31 | DI.RAD.S_ITS ---
PROCEDURE: XR LUMBAR SPINE MIN 4V INDICATIONS: low back pain, subacute TECHNIQUE: 5 views of the lumbar spine were acquired, including bilateral oblique views. COMPARISON: [facility], , XR LUMBAR SPINE 2-3V, 05/25/2021, 15:07. FINDINGS: Bones: 5 nonrib-bearing vertebrae are present. There is normal bony alignment. No vertebral body compression fractures. No suspicious bony lesions. Soft tissues: Overlying bowel gas pattern is normal. No suspicious soft tissue calcifications. Oblique images: No pars defects. IMPRESSION: No acute bony abnormality. No pars defects. Approved by: David Edwards M.D. on 04/03/2023 at 16:39
== END ==
PROVIDERS: PCP Family Medicine; Referring Provider Family Medicine; Visit Provider Family Medicine
DX: M54.50 Low back pain, unspecified (principal); M62.838 Other muscle spasm
CPT/HCPCS: 72110